=== PATIENT | female | born 1930 | race Caucasian/White ===

== ENCOUNTER 2016-11-01 13:00 | Emergency (ER) ==
[2016-11-01 13:07] VITALS: BP 140/77; TEMP 99.2
[2016-11-01] MEDS ORDERED: STADOL IM STA (13:27)
[2016-11-01 13:40] LABS: BASOPHILS # (AUTO) 0.1 K/uL (0-0.2); BASOPHILS % (AUTO) 0.8 % (0.0-3.0); EOSINOPHILS # (AUTO) 0.4 K/ul (0.0-0.7); EOSINOPHILS % (AUTO) 4.4 % (0.0-7.0); HEMATOCRIT 33.3 % (37.0-47.0); HEMOGLOBIN 11.2 g/dl (12.0-16.0); IMMATURE GRANULOCYTE % (AUTO) 0.7 % (0.0-5.0); LYMPHOCYTES % (AUTO) 36.2 (10.0-50.0); MEAN CORPUSCULAR HEMOGLOBIN 29.4 pg (27.0-31.0); MEAN CORPUSCULAR HGB CONC 33.6 (31.8-35.4); MEAN CORPUSCULAR VOLUME 87.4 fl (81.0-99.0); MONOCYTES # (AUTO) 0.6 K/uL (0.4-2.0); MONOCYTES % (AUTO) 7.5 (0-10); NEUTROPHILS # (AUTO) 4.2 K/ul (2.0-6.9); NEUTROPHILS % (AUTO) 50.4; PLATELET COUNT 319 10^3/uL (140-440); RED BLOOD COUNT 3.81 10^6/ul (4.20-5.40); WHITE BLOOD COUNT 8.35 K/ul (4.6-10.2)
--- NOTE | 2016-11-01 14:00 | ED.PDOC ---
General ED Provider: Dr. MARIE TEIXEIRA Chief Complaint: Back Pain Stated Complaint: back pain, weakness Time Seen by Physician: 13:00 (notrauma seen with staff ) Mode of Arrival: Wheelchair Information Source: Patient Exam Limitations: No limitations Primary Care Provider: KYLER DAVIS Nursing and Triage Documentation Reviewed and Agree: Yes Musculoskeletal Complaint Exam - Back Pain Complaint/Exam Mechanism of Injury: Reports: No known trauma Onset/Duration: chronic with new falre up Symptoms Are: Still present Timing: Constant Episodes Lasting: Hours Initial Severity: Moderate Current Severity: Moderate Location: Reports: Discrete Character: Reports: Aching, Throbbing, Spasmodic, Stiffness Aggravating: Reports: Movements, Lifting, Bending, Walking Alleviating: Reports: Rest, Position Associated Signs and Symptoms: Denies: Swelling, Redness, Bruising, Fever, Weakness, Numbness, Tingling, Abdominal pain, Flank pain, Bladder incontinence, Bowel incontinence, Weight loss, Pain with weight bearing Related History: Reports: Similar episode TAD Risk Factors: Reports: Hypertension. Denies: Conn. Tissue Disorder AAA Risk Factors: Reports: Hypertension, Atherosclerosis Cauda Equina Risk Factors: Reports: None Epidural Abcess Risk Factors: Reports: None Related Surgical History: Reports: None Focal Tenderness: No Paraspinal Muscle Tenderness: No Paraspinal Muscle Spasm: Yes Scoliosis: No Lordosis: No Kyphosis: No SLR Test: Right Negative, Left Negative Hip Motion Testing Pain: Right Negative, Left Negative Focal Weakness: Present: None Focal Sensory Loss: Present: None Gait: Present: Normal Differential Diagnoses: Strain, Sprain Review of Systems - Review Of Systems Constitutional: Reports: No symptoms Eyes: Reports: No symptoms Ears, Nose, Mouth, Throat: Reports: No symptoms Respiratory: Reports: No symptoms Cardiac: Reports: No symptoms GI: Reports: No symptoms : Reports: No symptoms Musculoskeletal: Reports: Back pain Skin: Reports: No symptoms Neurological: Reports: No symptoms Endocrine: Reports: No symptoms Hematologic/Lymphatic: Reports: No symptoms All Other Systems: Reviewed and Negative Past Medical History - Past Medical History Previously Healthy: Yes Endocrine: Reports: None Cardiovascular: Reports: Hypertension Respiratory: Reports: None Hematological: Reports: None Gastrointestinal: Reports: None Genitourinary: Reports: None Neuro/Psych: Reports: None Musculoskeletal: Reports: None Cancer: Reports: None Last Menstrual Period: n/a - Surgical History General Surgical History: Reports: None - Family History Family History: Reports: None - Social History Smoking Status: Never smoker Hx Substance Use: No Alcohol Screening: None Physical Exam - Physical Exam Appearance: Well-appearing, No pain distress, Well-nourished Eyes: GUILLAUME, EOMI, Conjunctiva clear ENT: Ears normal, Nose normal, Oropharynx normal Respiratory: Airway patent, Breath sounds clear, Breath sounds equal, Respirations nonlabored Cardiovascular: RRR, Pulses normal, No rub, No murmur GI/: Soft, Nontender, No masses, Bowel sounds normal, No Organomegaly Musculoskeletal: Normal strength, ROM intact, No edema, No calf tenderness Skin: Warm, Dry, Normal color Neurological: Sensation intact, Motor intact, Reflexes intact, Cranial nerves intact, Alert, Oriented Psychiatric: Affect appropriate, Mood appropriate Critical Care Note - Critical Care Note Total Time (mins): 0 Course - Course Hematology/Chemistry: 11/01/16 13:30 Orders, Labs, Meds: Lab Review 11/01/16 13:30 WBC 8.35 RBC 3.81 L Hgb 11.2 L Hct 33.3 L MCV 87.4 MCH 29.4 MCHC 33.6 RDW Coeff of Destiny 13.5 Plt Count 319 Immature Gran % (Auto) 0.7 Neut % (Auto) 50.4 Lymph % (Auto) 36.2 [place] % (Auto) 7.5 Eos % (Auto) 4.4 Baso % (Auto) 0.8 Immature Gran # (Auto) 0.1 Neut # 4.2 Lymph # 3.0 [place] # 0.6 Eos # 0.4 Baso # 0.1 Orders Category Date Time Status CBC W/ AUTO DIFF Stat LAB 11/01/16 13:30 Completed COMPREHENSIVE METABOLIC PANEL Stat LAB 11/01/16 13:30 Received URINALYSIS C & S IF INDICATED Stat LAB 11/01/16 13:27 Uncollected Butorphanol Tartrate [Stadol] MEDS 11/01/16 13:27 Discontinued 2 mg IM ONCE STA CT LUMBAR SPINE W/O CONTRAST Stat RADS 11/01/16 13:27 Taken Medications Discontinued Medications Generic Name Dose Route Start Last Admin Trade Name Freq PRN Reason Stop Dose Admin Butorphanol Tartrate 2 mg 11/01/16 13:27 11/01/16 13:47 Stadol IM 11/01/16 13:28 2 mg ONCE STA Administration Vital Signs: Temp Pulse Resp BP Pulse Ox 11/01/16 13:01 99.2 F 100 H 20 140/77 95 Departure - Departure Time of Disposition: 02:30 Disposition: ADMITTED INPATIENT Discharge Problem: Back pain Qualifiers: Back pain location: low back pain Chronicity: unspecified Instructions: Low Back Strain (ED), Acute Low Back Pain (ED), Chronic Back Pain (ED) Condition: Good Pt referred to PMD for follow-up: Yes (admitt now) Additional Instructions: Please call your Family Physician as soon as possible to schedule a follow-up appointment. Allergies/Adverse Reactions: Allergies codeine Adverse Reaction (Verified 11/01/16 13:07) morphine Adverse Reaction (Verified 11/01/16 13:07) Sulfa (Sulfonamide Antibiotics) Adverse Reaction (Verified 11/01/16 13:07) Home Medications: Ambulatory Orders Montelukast Sodium [Singulair] 10 mg PO BEDTIME 02/08/13 Valsartan/Hydrochlorothiazide [Diovan Hct 320-12.5 mg Tab] 1 tab PO DAILY Amlodipine Besylate [Norvasc] 5 mg PO DAILY 02/21/13 Clopidogrel Bisulfate [Plavix] 75 mg PO DAILY #30 tablet 02/21/13 Escitalopram Oxalate [Lexapro] 10 mg PO BEDTIME #30 tablet 02/21/13 Hydrocodone Bit/Acetaminophen [[place] 10-325] 1 tab PO DAILY PRN 11/01/16 Pantoprazole Sodium [Protonix] 40 mg PO DAILY 11/01/16 Disposition Discussed With: Patient, Family
[2016-11-01 14:01] LABS: ALBUMIN 3.7 g/dL (3.4-5.0); ALBUMIN/GLOBULIN RATIO 0.93; ANION GAP 16.9; BILIRUBIN,TOTAL 0.24 mg/dL (0.00-1.20); BUN/CREATININE RATIO 17.04; CALCIUM 9.8 mg/dL (8.2-10.2); CREATININE 1.76 mg/dL (0.60-1.30); POTASSIUM 3.9 mmol/L (3.5-5.10); TOTAL PROTEIN 7.7 g/dL (5.8-8.1)
--- NOTE | 2016-11-01 14:09 | CT ---
5. EXAM: CT lumbar spine without contrast HISTORY: Low back pain, chronic pain COMPARISON: None TECHNIQUE: CT lumbar spine performed without intravenous contrast. Coronal and sagittal reformatte d images obtained. FINDINGS: Mild leftward curvature lower thoracic and lumbar spine. Bones appear demineralized. Bi lateral pars defects L5. 2 mm anterolisthesis L5 on S1. There is a moderate compression fracture of L4 with acute fracture lines visualized and approximately 3 mm retrolisthesis of fracture fragments superior and inferior endplate. Approximately 50% loss of vertebral body height. There is also a mi nimally displaced fracture inferior endplate anterior aspect of L3 without loss of vertebral body h eight. Mild chronic appearing central concavity L5. Sacroiliac joints intact with mild degenerativ e change. Aorta normal caliber. Moderate to extensive obtuse atherosclerosis. No paravertebral so ft tissue abnormality. Mild subsegmental atelectasis lung bases. Left parapelvic renal cysts sugges conner. T12-L1: No central canal or neural foraminal narrowing. L1-L2: No central canal or neural foraminal narrowing. L2-L3: Posterior disc osteophyte complex and facet arthrosis causing mild central canal and mild bi lateral neural foraminal narrowing. L3-L4: Posterior is complex and facet arthrosis causing and mild retrolisthesis fracture fragment c ausing moderate central canal and moderate bilateral neural foramen narrowing. L4-L5: Posterior disc osteophyte complex and facet arthrosis and mild retrolisthesis fracture fragm ent causing moderate central canal and severe bilateral neural foraminal narrowing. L5-S1: Posterior disc osteophyte complex and facet arthrosis causing moderate to severe right and s evere left neural foraminal narrowing. IMPRESSION: 1. Acute appearing moderate compression fracture L4 with 3 mm retrolisthesis as described with appro ximately 50% loss of vertebral body height and mild retrolisthesis of fracture fragments as describe d. 2. Additional fracture inferior endplate L3 as described without loss of vertebral body height. 3. Chronic discogenic degenerative disease and facet arthrosis. Please see segmental analysis, not ing central canal and neural foraminal narrowing. 4. Bilateral pars defects L5. 2 mm anterolisthesis of L5 on S1. 5. Mild chronic appearing concavity L5. 6. Bones appear demineralized. 7. Atherosclerosis
[2016-11-01] MEDS ORDERED: SODIUM CHLORIDE 1,000 ML IV SCH (14:30)
[2016-11-01] MEDS ORDERED: STADOL IVP SCH (17:00)
== END 2016-11-01 15:28 | disposition short-term general hospital (02) ==
LOC: ED 13:00
DX: M54.5 Low back pain (principal); R53.1 Weakness; I10 Essential (primary) hypertension; I70.90 Unspecified atherosclerosis; Z79.899 Other long term (current) drug therapy
CPT/HCPCS: 36415; 80053; 85025; 96372; 99285

== ENCOUNTER 2017-09-04 18:14 | Inpatient (IN) ==
[2017-09-04] MEDS ORDERED: TORADOL IVP PRN (18:36)
[2017-09-04] MEDS ORDERED: NORCO 10-325 PO PRN (20:39)
--- NOTE | 2017-09-04 21:00 | DI ---
EXAM: One-view chest HISTORY: Cough TECHNIQUE: Single frontal view of the chest was obtained. Comparison 02/08/2013. FINDINGS: The heart is normal size. Lungs are clear. The pulmonary vasculature appears normal. Th e osseous structures and mediastinal contours are normal. IMPRESSION: No active cardiopulmonary disease.
--- NOTE | 2017-09-04 21:00 | CT ---
EXAM: CT lumbar spine without intravenous contrast 09/04/2017. Sagittal and coronal reformatted kaitlynn ges obtained HISTORY: Lower back pain COMPARISON: 11/01/2016 FINDINGS: Scoliotic curvature of the lumbar spine appears stable. Compression fracture is present a t the L4 vertebral body. There are retropulsed bony fragments. Loss of vertebral body height at L4 has worsened slightly as compared to 11/01/2016. There is currently up to a maximum of 70% loss verte bral body height. There is approximately 4 mm retropulsion. Anterolisthesis of L5 on S1 appears stable. There are bilateral L5 pars defects which appear chronic . There is a new corner fracture at the anterior and inferior aspect of L3. This can be seen on sagitt al series image 44. The remaining visualized osseous structures appear intact. Multilevel chronic degenerative disc disease. There is suggestion of spinal stenosis at L2-L3, L3-L4 and L4-L5. Multilevel chronic neural foraminal stenosis. IMPRESSION: 1. Compression fracture of L4 has worsened since the prior study. 2. New corner fracture at the anterior inferior aspect of L3. 3. Chronic scoliotic curvature. 4. Multilevel severe degenerative disc disease. Multilevel spinal and neural foraminal stenosis. 5. Anterolisthesis of L5 on S1 secondary to bilateral L5 pars defects.
[2017-09-04] MEDS: LEXAPRO PO SCH (21:12)
[2017-09-04] MEDS: SINGULAIR PO SCH (21:12)
[2017-09-04 23:40] VITALS: BMI 25.7
[2017-09-05] MEDS ORDERED: TYLENOL PO PRN (03:48)
[2017-09-05] MEDS ORDERED: NORCO 7.5-325 PO PRN (08:28)
[2017-09-05] MEDS ORDERED: VALSARTAN PO SCH (09:00)
[2017-09-05] MEDS ORDERED: [UNRECOGNIZED DRUG - OTHER] PO SCH (09:00)
[2017-09-05] MEDS ORDERED: HYDROCHLOROTHIAZIDE PO SCH (09:00)
[2017-09-05] MEDS ORDERED: NON-FORMULARY MEDICATION (Pantoprazole Sodium [Protonix] 40 MG) PO SCH (09:00)
[2017-09-05] MEDS: NORVASC PO SCH (09:55)
[2017-09-05] MEDS: PROTONIX PO SCH (09:55)
[2017-09-05] MEDS: PLAVIX PO SCH (09:55)
[2017-09-05] MEDS: HYDROCHLOROTHIAZIDE PO SCH (09:55)
[2017-09-05] MEDS: DIOVAN PO SCH (09:55)
[2017-09-05] MEDS: SINGULAIR PO SCH (20:32)
[2017-09-05] MEDS: LEXAPRO PO SCH (20:32)
[2017-09-05] MEDS: TORADOL IVP PRN (20:33)
[2017-09-06] MEDS: PROTONIX PO SCH (06:01)
[2017-09-06] MEDS: TORADOL IVP PRN (06:15)
[2017-09-06] MEDS ORDERED: TORADOL IVP PRN (07:58)
[2017-09-06] MEDS: DIOVAN PO SCH (10:59)
[2017-09-06] MEDS: HYDROCHLOROTHIAZIDE PO SCH (10:59)
[2017-09-06] MEDS: NORVASC PO SCH (10:59)
[2017-09-06] MEDS: PLAVIX PO SCH (11:00)
[2017-09-06] MEDS: SINGULAIR PO SCH (21:16)
[2017-09-06] MEDS: LEXAPRO PO SCH (21:16)
[2017-09-07] MEDS: PROTONIX PO SCH (05:41)
[2017-09-07] MEDS: HYDROCHLOROTHIAZIDE PO SCH (08:27)
[2017-09-07] MEDS: DIOVAN PO SCH (08:28)
[2017-09-07] MEDS: NORVASC PO SCH (08:28)
[2017-09-07] MEDS: PLAVIX PO SCH (08:28)
--- NOTE | 2017-09-07 09:06 | PCM.PROG ---
Attending Provider: ATTENDING PROVIDER: Dr. KYLER DAVIS This patient is seen with Maya Garcia, Nurse Practitioner. DATE OF SERVICE: 09/07/17 SUBJECTIVE: This 86 year old WHITE/ F was hospitalized 09/04/17. The patient is lying in bed, alert. Discussed with the patient long-term placement for rehab , patient agreeable upon discharge. She is willing to go along with her . X-rays showed new compression fractures. She has been unable to care for herself and at home requiring assistance of her daughter. She is extremely weak due to back pain and at risk for falls, as is her . REVIEW OF SYSTEMS: CONSTITUTIONAL: Weakness. No night sweats. No malaise, lethargy. No fever or chills. HEENT: Eyes: No visual changes. No eye pain. No eye discharge. ENT: No runny nose. No epistaxis. No sinus pain. No odynophagia. No congestion. RESPIRATORY: No cough, no congestion. No hemoptysis. No shortness of breath. CARDIOVASCULAR: No angina symptoms. No CHF symptoms. No atypical chest pain for CAD. No palpitations. No orthopnea.. GASTROINTESTINAL: No abdominal pain. No nausea or vomiting. No diarrhea or constipation. No hematemesis. No hematochezia. GENITOURINARY: No urgency. No frequency. No dysuria. No hematuria. No obstructive symptoms. No discharge. No pain. No significant abnormal bleeding. MUSCULOSKELETAL: Back pain. NEUROLOGICAL: Awake, alert, oriented to time, place and person. No headache. No neck pain. No syncope. No seizures. No dizziness. PSYCHIATRIC: Not anxious. No depression. No suicidal thoughts. No homicidal thoughts. SKIN: No rash. No lesions. No wounds. ENDOCRINE: No unexplained weight loss. No weight gain. HEMATOLOGIC/LYMPHATIC: No anemia. No purpura. No petechiae. No prolonged or excessive bleeding. No palpable lymph nodes. PHYSICAL EXAMINATION: GENERAL: The patient is awake, alert and oriented, lying in bed in no distress. VITAL SIGNS: Temperature 97.3 F, Pulse 59, Respiratory Rate 20, BP 120/71, Pulse Ox 98% HEENT: Head normocephalic, atraumatic. Eyes: Extraocular muscles are intact. Pupils are equal, round and reactive to light and accommodation. Ears: No lesions. Nose appeared normal. Throat: No exudate or erythema. NECK: Supple. No JVD, no carotid bruit. No lymphadenopathy or thyromegaly. LUNGS: Diminished breath sounds bilaterally. Percussion note normal. Chest symmetrical. HEART: S1, S2, no S3. No murmurs. No cyanosis or clubbing. No ascites. Pulses: Dorsalis pedis and posterior tibial pulses +1 to +2 both sides. ABDOMEN: Soft. Non-tender. Bowel sounds active. No CVA tenderness. No mass felt. EXTREMITIES: No edema. Full range of motion of all extremities, equal. NEUROLOGIC: No focal deficit. Cranial nerves II through XII are grossly intact. No headache, no double vision or headache. SKIN: Not dry. Intact. Turgor-normal. LYMPHATIC: No palpable lymph nodes/no lymphedema. MUSCULOSKELETAL: Normal joints with no swelling. Muscle tone is normal. LAB REVIEW: 09/07/17 04:15 09/07/17 04:15 09/07/17 04:15: Sodium 139, Potassium 4.5, Chloride 104, Carbon Dioxide 26, Anion Gap 13.5, BUN 45 H, Creatinine 1.72 H, Estimated GFR (MDRD) 28.00, BUN/ Creatinine Ratio 26.16, Glucose 113, Calcium 9.3, Total Bilirubin 0.3, AST 14 L , ALT 8 L, Alkaline Phosphatase 44 L, Total Protein 6.5, Albumin 3.1 L, Globulin 3.4, Albumin/Globulin Ratio 0.91 09/07/17 04:15: WBC 6.91, RBC 3.46 L, Hgb 10.2 L, Hct 30.7 L, MCV 88.7, MCH 29.5 , MCHC 33.2, RDW Coeff of Destiny 13.4, Plt Count 212, Immature Gran % (Auto) 0.1, Neut % (Auto) 52.3, Lymph % (Auto) 34.0, [place] % (Auto) 8.2, Eos % (Auto) 4.5, Baso % (Auto) 0.9, Immature Gran # (Auto) 0.0, Neut # (Auto) 3.6, Lymph # (Auto ) 2.4, [place] # (Auto) 0.6, Eos # (Auto) 0.3, Baso # (Auto) 0.1 ASSESSMENT: 1. GENERALIZED WEAKNESS 2. COMPRESSION FRACTURES L3-L4 3. DEGENERATIVE JOINT DISEASE OF THE SPINE 4. CHRONIC KIDNEY DISEASE PLAN: 1. Continue medications. 2. Pain seems to be controlled. 3. Discontinue Toradol to see if we can manage with p.o. medications. Plan and coordination of the patient's care discussed in the presence of Health Program Analyst and nurse. CONDITION: Stable SCRIBED BY: MECHE SWENSON Core Measures Abstractor scribed while in presence of service performed by Dr. Davis/Maya Garcia APRN on 09/07/17 ([id number])
[2017-09-07] MEDS: SINGULAIR PO SCH (20:43)
[2017-09-07] MEDS: LEXAPRO PO SCH (20:44)
[2017-09-08] MEDS: PROTONIX PO SCH (05:47)
[2017-09-08 05:48] VITALS: BP 103/61; TEMP 97.8
[2017-09-08] MEDS: HYDROCHLOROTHIAZIDE PO SCH (08:30)
[2017-09-08] MEDS: NORVASC PO SCH (08:31)
[2017-09-08] MEDS: PLAVIX PO SCH (08:31)
[2017-09-08] MEDS: DIOVAN PO SCH (08:31)
--- NOTE | 2017-09-08 08:52 | PCM.PROG ---
Attending Provider: ATTENDING PROVIDER: Dr. KYLER HAYES This patient is seen with Maya Garcia, Nurse Practitioner. DATE OF SERVICE: 09/08/17 SUBJECTIVE: This 86 year old WHITE/ F was hospitalized 09/04/17. The patient is sitting in chair, alert. Back pain has improved. The patient has declined placement at [facility] for rehab and would like to go home. She has agreed to home health. REVIEW OF SYSTEMS: CONSTITUTIONAL: No night sweats. No fatigue, malaise, lethargy. No fever or chills. HEENT: Eyes: No visual changes. No eye pain. No eye discharge. ENT: No runny nose. No epistaxis. No sinus pain. No odynophagia. No congestion. RESPIRATORY: No cough, no congestion. No hemoptysis. No shortness of breath. CARDIOVASCULAR: No angina symptoms. No CHF symptoms. No atypical chest pain for CAD. No palpitations. No orthopnea.. GASTROINTESTINAL: No abdominal pain. No nausea or vomiting. No diarrhea or constipation. No hematemesis. No hematochezia. GENITOURINARY: No urgency. No frequency. No dysuria. No hematuria. No obstructive symptoms. No discharge. No pain. No significant abnormal bleeding. MUSCULOSKELETAL: Back pain, chronic. NEUROLOGICAL: Awake, alert, oriented to time, place and person. No headache. No neck pain. No syncope. No seizures. No dizziness. PSYCHIATRIC: Not anxious. No depression. No suicidal thoughts. No homicidal thoughts. SKIN: No rash. No lesions. No wounds. ENDOCRINE: No unexplained weight loss. No weight gain. HEMATOLOGIC/LYMPHATIC: No anemia. No purpura. No petechiae. No prolonged or excessive bleeding. No palpable lymph nodes. PHYSICAL EXAMINATION: GENERAL: The patient is awake, alert and oriented, sitting in chair in no distress. VITAL SIGNS: Temperature 97.8 F, Pulse 76, Respiratory Rate 16, BP 103/61, Pulse Ox 97% HEENT: Head normocephalic, atraumatic. Eyes: Extraocular muscles are intact. Pupils are equal, round and reactive to light and accommodation. Ears: No lesions. Nose appeared normal. Throat: No exudate or erythema. NECK: Supple. No JVD, no carotid bruit. No lymphadenopathy or thyromegaly. LUNGS: Diminished breath sounds. Clear to auscultation. Percussion note normal. Chest symmetrical. HEART: S1, S2, no S3. No murmurs. No cyanosis or clubbing. No ascites. Pulses: Dorsalis pedis and posterior tibial pulses +1 to +2 both sides. ABDOMEN: Soft. Non-tender. Bowel sounds active. No CVA tenderness. No mass felt. EXTREMITIES: No edema. Full range of motion of all extremities, equal. NEUROLOGIC: No focal deficit. Cranial nerves II through XII are grossly intact. No headache, no double vision or headache. SKIN: Not dry. Intact. Turgor-normal. LYMPHATIC: No palpable lymph nodes/no lymphedema. MUSCULOSKELETAL: Normal joints with no swelling. Muscle tone is normal. LAB REVIEW: 09/08/17 04:30 09/08/17 04:30 09/08/17 04:30: Sodium 139, Potassium 4.2, Chloride 105, Carbon Dioxide 24, Anion Gap 14.2, BUN 43 H, Creatinine 1.82 H, Estimated GFR (MDRD) 26.00, BUN/ Creatinine Ratio 23.62, Glucose 106, Calcium 9.0, Total Bilirubin 0.2, AST 14 L , ALT 9 L, Alkaline Phosphatase 48 L, Total Protein 6.3, Albumin 2.9 L, Globulin 3.4, Albumin/Globulin Ratio 0.85 09/08/17 04:30: WBC 7.12, RBC 3.36 L, Hgb 9.7 L, Hct 30.1 L, MCV 89.6, MCH 28.9 , MCHC 32.2, RDW Coeff of Destiny 13.4, Plt Count 233, Immature Gran % (Auto) 0.4, Neut % (Auto) 41.5, Lymph % (Auto) 42.1, [place] % (Auto) 9.7, Eos % (Auto) 5.6, Baso % (Auto) 0.7, Immature Gran # (Auto) 0.0, Neut # (Auto) 3.0, Lymph # (Auto ) 3.0, [place] # (Auto) 0.7, Eos # (Auto) 0.4, Baso # (Auto) 0.1 ASSESSMENT: 1. GENERALIZED WEAKNESS 2. COMPRESSION FRACTURES L3-L4 3. DEGENERATIVE JOINT DISEASE OF THE SPINE 4. CHRONIC KIDNEY DISEASE PLAN: 1. Discharge home. 2. The patient is to followup with Dr. Perez. 3. They prefer [facility] for nursing assessment, medication management, PT and OT. [facility]. Plan and coordination of the patient's care discussed in the presence of Wood Planer and nurse. CONDITION: Stable SCRIBED BY: MECHE SWENSON Interactive Designer scribed while in presence of service performed by Dr. Hayes/Maya Garcia APRN on 09/08/17 ([id number])
--- NOTE | 2017-09-08 10:08 | CM.DICTOOL ---
ADMISSION: 09/04/17 18:14 DISCHARGE: 09/08/17 FINAL DIAGNOSIS LOW BACK PAIN GENERALIZED WEAKNESS COMPRESSION FRACTURE L3-L4 DJD CKD HISTORY OF: CVA TIA CAD IRREGULAR HEART BEAT TYPE 2 DIABETES DEPRESSION ANXIETY LAST VITALS Temp Pulse Resp BP Pulse Ox 97.8 F 76 16 103/61 97 09/08/17 05:48 09/08/17 05:48 09/08/17 05:48 09/08/17 05:48 09/08/17 05:48 TAKE THESE MEDICATIONS AT HOME Acetaminophen (Tylenol) 650 mg PO Q4H PRN PRN Reason: Mild Pain Hydrocodone Bitart/Acetaminophen ([place] 7.5-325) 1 tab PO BID PRN PRN Reason: Pain Last Admin: 09/07/17 06:42 Dose: 1 tab Amlodipine Besylate (Norvasc) 5 mg PO DAILY [facility] Last Admin: 09/08/17 08:31 Dose: 5 mg Clopidogrel Bisulfate (Plavix) 75 mg PO DAILY [facility] Last Admin: 09/08/17 08:31 Dose: 75 mg Escitalopram Oxalate (Lexapro) 10 mg PO BEDTIME [facility] Last Admin: 09/07/17 20:44 Dose: 10 mg Hydrochlorothiazide (Hydrochlorothiazide) 12.5 mg PO DAILY [facility] Last Admin: 09/08/17 08:30 Dose: 12.5 mg Montelukast Sodium (Singulair) 10 mg PO BEDTIME [facility] Last Admin: 09/07/17 20:43 Dose: 10 mg Pantoprazole Sodium (Protonix) 40 mg PO QDAC [facility] Last Admin: 09/08/17 05:47 Dose: 40 mg Valsartan (Diovan) 320 mg PO DAILY [facility] Last Admin: 09/08/17 08:31 Dose: 320 mg ALLERGIES codeine Adverse Reaction (Verified 11/01/16 13:07) morphine Adverse Reaction (Verified 11/01/16 13:07) Sulfa (Sulfonamide Antibiotics) Adverse Reaction (Verified 11/01/16 13:07) DISCONTINUED MEDICATIONS NONE NEW PRESCRIPTIONS: NONE SMOKING: N/A DISEASE SPECIFIC EDUCATION: MEDICATIONS ACTIVITY FOLLOW UP HOME HEALTH SERVICES LAB REVIEW: 09/08/17 04:30 09/08/17 04:30 09/08/17 04:30: Sodium 139, Potassium 4.2, Chloride 105, Carbon Dioxide 24, Anion Gap 14.2, BUN 43 H, Creatinine 1.82 H, Estimated GFR (MDRD) 26.00, BUN/ Creatinine Ratio 23.62, Glucose 106, Calcium 9.0, Total Bilirubin 0.2, AST 14 L , ALT 9 L, Alkaline Phosphatase 48 L, Total Protein 6.3, Albumin 2.9 L, Globulin 3.4, Albumin/Globulin Ratio 0.85 09/08/17 04:30: WBC 7.12, RBC 3.36 L, Hgb 9.7 L, Hct 30.1 L, MCV 89.6, MCH 28.9 , MCHC 32.2, RDW Coeff of Destiny 13.4, Plt Count 233, Immature Gran % (Auto) 0.4, Neut % (Auto) 41.5, Lymph % (Auto) 42.1, [place] % (Auto) 9.7, Eos % (Auto) 5.6, Baso % (Auto) 0.7, Immature Gran # (Auto) 0.0, Neut # (Auto) 3.0, Lymph # (Auto ) 3.0, [place] # (Auto) 0.7, Eos # (Auto) 0.4, Baso # (Auto) 0.1 PLAN: DISCHARGE TO HOME TODAY. 09/08/17. CONTINUE HOME MEDICATIONS PER NURSING SHEET. THERE WERE NO CHANGES. NO NEW MEDICATIONS. DIET TOLERATED. ACTIVITY GRADUALLY RESUME ACTIVITY. [facility] FOR NURSING, PT AND OT. A REFERRAL TO DR. JARVIS HAS BEEN MADE. THEY WILL CALL YOU WITH AN APPOINTMENT. IF YOU NEED TO CALL THEM, THE NUMBER IS . THEIR ADDRESS IS [address] [place] [address]. YOU HAVE A FOLLOW UP APPOINTMENT WITH DR. DAVIS ON ThursdayAugust AT [phone]. IF UNABLE TO KEEP APPOINTMENT, PLEASE CALL TO RESCHEDULE. [phone]. PATIENT IS A DNR. SITTING UP IN CHAIR. ALERT AND ORIENTED X 4. Daya MONDRAGON APRN INTO SEE PATIENT. PATIENT STATES FEELING BETTER AND WANTS TO GO HOME TODAY. Daya MONDRAGON APRN DISCUSSED PLAN OF CARE INCLUDING DISCHARGE, HOME HEALTH SERVICES AND REFERRAL TO DR. JARVIS AT [facility]. PATIENT VERBALIZES UNDERSTANDING AND AGREEMENT. APPETITE IS GOOD. VITAL SIGNS ARE STABLE. HAS BEEN AFEBRILE. POX 97% ON ROOM AIR. HEART TONES ARE REGULAR. NO C/O PAIN OR DISCOMFORT. LUNGS CLEAR. NO COUGH OR DYSPNEA NOTED. ABDOMEN IS SOFT, NON-TENDER WITH BOWEL SOUNDS POSITIVE IN ALL 4 QUADS. LAST BM . PEDAL PULSES POSITIVE WITHOUT EDEMA. HAS SCATTERED BRUISING TO BILATERAL ARMS. HAS SL IN LEFT HAND SITE IS CLEAR. RATED FALL RISK BUT SIGNED RELEASE. HAS BEEN UP IN ROOM PER SELF. AMBULATES SHORT DISTANCES IN ROOM.IS WEAK AND HOLDS ONTO FURNITURE WHEN UP. FELL YESTERDAY WHEN GOING TO SIT IN WHEELCHAIR. SHE DID NOT LOCK WHEELCHAIR AND IT ROLLED OUT FROM UNDER HER. GOES TO SPOUSE'S ROOM PER WHEELCHAIR. HAS C/O PAIN TO BACK AND RECEIVED [facility] FOR PAIN. DR. KYLER DAVIS MD Daya MONDRAGON APRN
--- NOTE | 2017-09-09 13:16 | PN ---
DATE OF SERVICE: 09/05/17 SUBJECTIVE: The patient was hospitalized with severe back pain and unable to walk. The patient says that she is feeling a lot better. She is up and about in the room. Lower back pain is better, muscle spasm is better. REVIEW OF SYSTEMS: CONSTITUTIONAL: No night sweats. No fatigue, malaise, lethargy. No fever or chills. HEENT: Eyes: No visual changes. No eye pain. No eye discharge. ENT: No runny nose. No epistaxis. No sinus pain. No sore throat. No odynophagia. No congestion. RESPIRATORY: No cough, no congestion. No hemoptysis. No shortness of breath. CARDIOVASCULAR: No angina symptoms. No CHF symptoms. No atypical chest pain for CAD. No palpitations. No orthopnea. GASTROINTESTINAL: No abdominal pain. No nausea or vomiting. No diarrhea or constipation. No hematemesis. No hematochezia. GENITOURINARY: No urgency. No frequency. No dysuria. No hematuria. No obstructive symptoms. No discharge. No pain. No significant abnormal bleeding. MUSCULOSKELETAL: No musculoskeletal pain; no joint swelling. Lower back pain and weakness. NEUROLOGICAL: No headache. No neck pain. No syncope. No seizures. No dizziness. PSYCHIATRIC: Not anxious. No depression. No suicidal thoughts. No homicidal thoughts. SKIN: No rash. No lesions. No wounds. ENDOCRINE: No unexplained weight loss. No weight gain. HEMATOLOGIC/LYMPHATIC: No anemia. No purpura. No petechiae. No prolonged or excessive bleeding. No palpable lymph nodes. PHYSICAL EXAMINATION: GENERAL: The patient is oriented to time, place and person. HEENT: Head normocephalic, atraumatic. Eyes: Extraocular muscles are intact. Pupils are equal, round and reactive to light and accommodation. Ears: No lesions. Nose appeared normal. Throat: No exudate or erythema. NECK: Supple. No JVD, no carotid bruit. No lymphadenopathy or thyromegaly. LUNGS: Clear to auscultation. Percussion note normal. Chest symmetrical. HEART: S1, S2, no S3. No murmurs. No cyanosis or clubbing. No ascites. Pulses: Dorsalis pedis and posterior tibial pulses +1 to +2 both sides. ABDOMEN: Soft. Nontender. Bowel sounds active. No CVA tenderness. No mass felt. EXTREMITIES: No edema. Full range of motion of all extremities, equal. NEUROLOGIC: No focal deficit. Cranial nerves II through XII are grossly intact. No headache, no double vision or headache. SKIN: Not dry. Intact. Turgor - normal. LYMPHATIC: No palpable lymph nodes/no lymphedema. MUSCULOSKELETAL: Normal joints with no swelling. Muscle tone is normal. ASSESSMENT: 1. Sciatica with DJD of the spine 2. Other problems are stable PLAN: 1. Continue Toradol and Muscle relaxant CONDITION: TIME SPENT: More than 30 minutes. Plan and coordination of the patient's care discussed in the presence of nurse. VLAD
--- NOTE | 2017-09-09 13:26 | PN ---
DATE OF SERVICE: 09/06/17 SUBJECTIVE: The patient's back pain is a lot better. She is up and about. No symptoms of CHF or coronary insufficiency. She is worried about her who is in the hospital too. She is willing to go to the custodial to see how things work up because she is not able to take care of her . The family is helping but not enough. Both and , the patient and patient's , are sick and failing in the health. The patient is up and about in the room walking around. REVIEW OF SYSTEMS: CONSTITUTIONAL: No night sweats. No fatigue, malaise, lethargy. No fever or chills. HEENT: Eyes: No visual changes. No eye pain. No eye discharge. ENT: No runny nose. No epistaxis. No sinus pain. No sore throat. No odynophagia. No congestion. RESPIRATORY: No cough, no congestion. No hemoptysis. No shortness of breath. CARDIOVASCULAR: No angina symptoms. No CHF symptoms. No atypical chest pain for CAD. No palpitations. No orthopnea. GASTROINTESTINAL: No abdominal pain. No nausea or vomiting. No diarrhea or constipation. No hematemesis. No hematochezia. GENITOURINARY: No urgency. No frequency. No dysuria. No hematuria. No obstructive symptoms. No discharge. No pain. No significant abnormal bleeding. MUSCULOSKELETAL: No musculoskeletal pain; no joint swelling. NEUROLOGICAL: No headache. No neck pain. No syncope. No seizures. No dizziness. PSYCHIATRIC: Not anxious. No depression. No suicidal thoughts. No homicidal thoughts. SKIN: No rash. No lesions. No wounds. ENDOCRINE: No unexplained weight loss. No weight gain. HEMATOLOGIC/LYMPHATIC: No anemia. No purpura. No petechiae. No prolonged or excessive bleeding. No palpable lymph nodes. PHYSICAL EXAMINATION: HEENT: Head normocephalic, atraumatic. Eyes: Extraocular muscles are intact. Pupils are equal, round and reactive to light and accommodation. Ears: No lesions. Nose appeared normal. Throat: No exudate or erythema. NECK: Supple. No JVD, no carotid bruit. No lymphadenopathy or thyromegaly. LUNGS: Decreased breath sounds but clear to auscultation. Percussion note normal. Chest symmetrical. HEART: S1, S2, no S3. No murmurs. No cyanosis or clubbing. No ascites. Pulses: Dorsalis pedis and posterior tibial pulses +1 to +2 both sides. ABDOMEN: Soft. Nontender. Bowel sounds active. No CVA tenderness. No mass felt. EXTREMITIES: No edema. Full range of motion of all extremities, equal. NEUROLOGIC: No focal deficit. Cranial nerves II through XII are grossly intact. No headache, no double vision or headache. SKIN: Not dry. Intact. Turgor - normal. LYMPHATIC: No palpable lymph nodes/no lymphedema. MUSCULOSKELETAL: Normal joints with no swelling. Muscle tone is normal. ASSESSMENT: 1. Sciatica under control PLAN: 1. Continue Toradol half dose because of kidney function 2. Continue all the medications 3. Encouraged the patient to eat CONDITION: Stable. TIME SPENT: More than 30 minutes. Plan and coordination of the patient's care discussed in the presence of nurse. VLAD
--- NOTE | 2017-09-10 09:12 | PN ---
DATE OF SERVICE: 09/07/17 SUBJECTIVE: The patient was seen and examined with the nurse practitioner. The patient is wobbly but able to walk some by herself with unsteady gait in the room. The patient has back pain as usual, much better after Toradol and medications, not taking care of her . The patient is supposed to see Dr. Perez for pain management and possibly injections in the back. The patient says that her daughter tries to run her life but she is the boss. The patient is oriented to time, place and person, intelligent, does not want to go to the group home. TIME SPENT: More than 30 minutes. Plan and coordination of the patient's care discussed in the presence of nurse. VLAD
--- NOTE | 2017-09-10 09:32 | PN ---
CODING FOR BILLING 09/04/17 LEVEL 5 09/05/17 INTERMEDIATE 09/06/17 INTERMEDIATE 09/07/17 INTERMEDIATE 09/08/17 DISCHARGE MTDD
--- NOTE | 2017-09-10 13:03 | DS ---
DATE OF SERVICE: 09/08/17 FINAL DIAGNOSIS: 1. Low back pain 2. Generalized weakness 3. Compression fracture L3-L4 4. DJD spine 5. CKD 6. CVA 7. TIA 8. CAD 9. Irregular heart beat 10.Type 2 diabetes 11.Depression 12.Anxiety LAST VITALS: Temperature 97.8, pulse 76, respiratory rate 16, blood pressure 103/61 and pulse ox 97%. DISCHARGE INSTRUCTIONS: Discharge to home today. Continue home medications per nursing sheet. There were no changes. No new medications. [facility] for nursing, PT/OT. A referral to Dr. Perez has been made. They will call with an appointment. Followup appointment with Dr. Hayes on September 17 at 11: 15. The patient is a DNR. MEDICATIONS AT DISCHARGE: Tylenol 650mg PO Q 4 hours PRN [place] 7.5-325mg PO three times a day PRN Norvasc 5mg Po daily Plavix 75mg PO daily Lexapro 10mg PO bedtime Hydrochlorothiazide 12.5mg PO daily Singulair 10mg PO bedtime Protonix 40mg PO QDAC Diovan 320mg PO daily ALLERGIES: Codeine Morphine Sulfa NEW PRESCRIPTIONS: None DIET INSTRUCTIONS: As tolerated ACTIVITY: Gradually resume activity SMOKING: N/A DISEASE SPECIFIC EDUCATION: Medications Activity Followup Home Health Services HOSPITAL COURSE: This is an 86 year old white female who has been living at home with her who has been hospitalized several times over the past few weeks with a new onset right left DVT and CHF. She has a history of chronic back pain and CVA. Over the course of past several weeks caring for her she has become extremely weak. Her back pain has become intractable. She presented to our office with generalized worsening weakness and intractable back pain. She was admitted for pain control, IV fluids. She does have a history of chronic kidney disease. She was started on normal saline at 75cc an hour. She takes [place] 7.5 twice a day and also started her Toradol 30mg IV Q 8 hours. X-ray and CT of the back showed compression fractures of L3 and L4 which were both worsening and a partial fracture down in the sacrum. She has agreed during her hospital stay to go and see Dr. Perez and her information has been faxed for a referral and they will call her with an appointment. Over the course of several days her pain has improved, she has been eating well for about the past 48 hours. Her kidney function is slightly abnormal which is baseline for her. She has been eating well. Her has also been in the hospital during this time do to worsening leg edema, CHF, shortness of breath and weakness. This has allowed her some time to rest as well. yesterday she finally got in the chair. She has been alert and oriented. They have decline, both her and her , prison placement for rehab but they have agreed to home health with [facility] and for PT/OT and nursing services. She will be discharged home in stable condition. She is going to continue the [place] twice a day PRN for pain. Fall precautions have been discussed as she did slip in the wheel chair. When she was admitted she was unable to walk and could ambulate only by wheelchair and now she is able to walk with the use of a cane or walker. We will followup with her in the office. TIME SPENT: More than 60 minutes. VLAD
--- NOTE | 2017-09-18 15:34 | HP ---
DATE OF SERVICE: 09/04/17 REASON FOR HOSPITALIZATION/HISTORY OF PRESENT ILLNESS: Severe lower back pain more than 3 weeks with weakness. has been sick- unable to walk- she is housekeeper caregiver. Pain level 2 to 8 on scale of 1-10. PAST MEDICAL HISTORY: DJD spine Anemia Hypertension Dyslipidemia Left side CVA B12 deficiency GERD Depression History of L4 compression fracture. PAST SURGICAL HISTORY: Hysterectomy Bladder Cyst under arm REVIEW OF SYSTEMS: CONSTITUTIONAL: No fever, Fatigue. HEENT: No sinus drainage, no sore throat. RESPIRATORY: No cough, no congestion. CARDIOVASCULAR: No atypical chest pain for coronary artery disease. No angina , CHF symptoms, palpitations or shortness of breath. GASTROINTESTINAL: No melena or abdominal pain. No GERD. GENITOURINARY: No hematuria, no prostatism, no polyuria. AIRPORT SCREENER: No blackout, Dizziness, no headache, no double vision. MUSCULOSKELETAL: Osteoarthritis pain, no joint swelling. ENDOCRINE: No weight loss, no weight gain. SKIN: Dry, no rash. PSYCHIATRIC: Anxious, no depression, no suicidal thoughts, no homicidal thoughts. SOCIAL HISTORY: Marital Status: Lives with the . Alcohol Usage: No. Tobacco Usage: No. FAMILY HISTORY: Father Mother Brother 4 Sisters 5 MEDICATIONS: Diovan 320-12.5 PO daily Singulair 10mg PO bedtime Plavix 75mg PO daily Lexapro 10mg PO bedtime Norvasc 5mg PO daily Protonix 40mg PO daily [place] 7.5-325 PO twice a day PRN ALLERGIES: Crestor Zocor Sulfa Lipitor Codeine Iron Morphine Pravachol PHYSICAL EXAMINATION: GENERAL APPEARANCE: Oriented times three. HEENT: Normal. Kyphosis. NECK: No JVP, no bruits. RESPIRATORY: Decreased breath sounds. CARDIOVASCULAR: S1, S2, no S3, no murmurs. No cyanosis, clubbing. No ascites. GI/ABDOMEN: No tenderness. Bowel sounds are active. EXTREMITIES: edema, pulses +1, equal. AIRPORT SCREENER: Deep tendon reflexes, sensory, motor and gait all normal. ASSESSMENT: 1. Severe DJD spine/sciatica 2. Osteoarthritis 3. Chronic kidney disease stage 3 4. History of L4 compression fracture 5. Severe DJD spine 6. Anemia 7. Hypertension 8. Dyslipidemia 9. Left side CVA 10.B12 deficiency 11.GERD 12.Depression PLAN: 1. Admit regular 2. EKG and x-ray chest today 3. CT Lumbar spine 4. CBC, CMP, TSH today 5. Telemetry x2 4 hours 6. CBC and CMP every other day 7. Toradol 20mg IV now and Q 8 hours for pain PRN 8. Continue all home medications 9. Discontinue Crestor 10.CK Level today TIME SPENT: More than 70 minutes. MTDD
== END 2017-09-08 13:13 | disposition home or self-care (01) | DRG 551 ==
LOC: MEDSURG A 18:14
PROVIDERS: ADMIT Internal Medicine; ATTEND Internal Medicine
DX: M47.9 Spondylosis, unspecified (principal); I63.9 Cerebral infarction, unspecified; G45.9 Transient cerebral ischemic attack, unspecified; M54.40 Lumbago with sciatica, unspecified side; M48.56XS Collapsed vertebra, not elsewhere classified, lumbar region, sequela of fracture; R53.1 Weakness; I25.10 Atherosclerotic heart disease of native coronary artery without angina pectoris; I49.9 Cardiac arrhythmia, unspecified; E11.9 Type 2 diabetes mellitus without complications; F41.8 Other specified anxiety disorders; M19.90 Unspecified osteoarthritis, unspecified site; N18.3 Chronic kidney disease, stage 3 (moderate); E53.8 Deficiency of other specified B group vitamins; K21.9 Gastro-esophageal reflux disease without esophagitis; E78.5 Hyperlipidemia, unspecified; D64.9 Anemia, unspecified; I10 Essential (primary) hypertension
CPT/HCPCS: 36415; 80053; 82550; 84439; 84443; 85025; 93005; 93010

== ENCOUNTER 2018-11-24 11:05 | Inpatient (IN) ==
[2018-11-24] MEDS ORDERED: DECADRON 4 MG/ML SDV IM STA (11:52)
[2018-11-24] MEDS ORDERED: NITROSTAT SL PRN (11:56)
[2018-11-24] MEDS ORDERED: VISTARIL INJ IM PRN (11:56)
[2018-11-24] MEDS ORDERED: ATROPINE SULFATE PFS IVP PRN (11:56)
[2018-11-24] MEDS ORDERED: TYLENOL PO PRN (11:56)
[2018-11-24 12:02] VITALS: BMI 25.9
[2018-11-24] MEDS ORDERED: TORADOL IVP STA (12:02)
[2018-11-24] MEDS: DEXTROSE 5%-1/2NS IV SOLUTION 1,000 ML IV SCH (12:30)
--- NOTE | 2018-11-24 13:53 | DI ---
EXAM: Single view of the chest. History: Short of breath Comparison: Chest radiograph 09/04/2017 Findings: Heart is mildly enlarged. No focal consolidation. No appreciable pleural fluid and no pn eumothorax. No acute osseous abnormalities. Impression: Mild cardiomegaly without acute disease in the chest
[2018-11-24] MEDS ORDERED: NORCO 7.5-325 PO PRN (14:52)
[2018-11-24] MEDS: ZANTAC PO SCH (15:29)
[2018-11-24] MEDS ORDERED: ROCEPHIN 1 GM/50 ML D5W 1 GM in PREMIX 50 ML D5W 1 BAG IV STA (17:10)
[2018-11-24] MEDS ORDERED: ROCEPHIN 1 GM/50 ML D5W 50 ML IV ONE (17:54)
[2018-11-24] MEDS: LEXAPRO PO SCH (20:31)
[2018-11-24] MEDS: COZAAR PO SCH (20:31)
[2018-11-24] MEDS: NORVASC PO SCH (20:32)
[2018-11-24] MEDS: SINGULAIR PO SCH (20:32)
[2018-11-24] MEDS: PROTONIX PO SCH (20:32)
[2018-11-24] MEDS: PLAVIX PO SCH (20:32)
[2018-11-24] MEDS: HYDROCHLOROTHIAZIDE PO SCH (20:32)
[2018-11-24] MEDS ORDERED: NON-FORMULARY MEDICATION (Losartan/Hydrochlorothiazide [Losartan-Hctz 100-12.5 Mg Tab] 1 E PO SCH (21:00)
[2018-11-24] MEDS ORDERED: NON-FORMULARY MEDICATION (Pantoprazole Sodium [Protonix] 40 MG) PO SCH (21:00)
[2018-11-25] MEDS: DEXTROSE 5%-1/2NS IV SOLUTION 1,000 ML IV SCH ×2 (01:31→14:19)
[2018-11-25] MEDS: TORADOL IVP SCH (08:53)
[2018-11-25] MEDS: ASPIRIN EC PO SCH (08:54)
[2018-11-25] MEDS: ROCEPHIN 1 GM/50 ML D5W 1 GM in PREMIX 50 ML D5W 1 BAG IV SCH (08:55)
[2018-11-25] MEDS ORDERED: DECADRON 4 MG/ML SDV IM SCH (09:00)
--- NOTE | 2018-11-25 10:30 | PCM.PROG ---
Attending Provider: ATTENDING PROVIDER: Dr. KYLER DAVIS This patient is seen with Maya Garcia, Nurse Practitioner. DATE OF SERVICE: 11/25/18 SUBJECTIVE: This 88 year old WHITE/ F was hospitalized 11/24/18. The patient is resting comfortably. She is feeling some better. No fever through the night. U/ A showed 4+ bacteria. Kidney function has slightly improved. REVIEW OF SYSTEMS: CONSTITUTIONAL: No night sweats. No fatigue, malaise, lethargy. No fever or chills. Weakness. HEENT: Eyes: No visual changes. No eye pain. No eye discharge. ENT: No runny nose. No epistaxis. No sinus pain. No odynophagia. No congestion. RESPIRATORY: No cough, no congestion. No hemoptysis. No shortness of breath. CARDIOVASCULAR: No angina symptoms. No CHF symptoms. No atypical chest pain for CAD. No palpitations. No orthopnea.. GASTROINTESTINAL: No abdominal pain. No nausea or vomiting. No diarrhea or constipation. No hematemesis. No hematochezia. GENITOURINARY: No urgency. No frequency. No dysuria. No hematuria. No obstructive symptoms. No discharge. No pain. No significant abnormal bleeding. MUSCULOSKELETAL: No musculoskeletal pain; no joint swelling. NEUROLOGICAL: Awake, alert, oriented to time, place and person. No headache. No neck pain. No syncope. No seizures. No dizziness. PSYCHIATRIC: Not anxious. No depression. No suicidal thoughts. No homicidal thoughts. SKIN: No rash. No lesions. No wounds. ENDOCRINE: No unexplained weight loss. No weight gain. HEMATOLOGIC/LYMPHATIC: No anemia. No purpura. No petechiae. No prolonged or excessive bleeding. No palpable lymph nodes. PHYSICAL EXAMINATION: GENERAL: The patient is awake, alert and oriented, lying in bed in no distress. VITAL SIGNS: Temperature 97.7 F, Pulse 59, Respiratory Rate 20, BP 117/71, Pulse Ox 99% HEENT: Head normocephalic, atraumatic. Eyes: Extraocular muscles are intact. Pupils are equal, round and reactive to light and accommodation. Ears: No lesions. Nose appeared normal. Throat: No exudate or erythema. NECK: Supple. No JVD, no carotid bruit. No lymphadenopathy or thyromegaly. LUNGS: Diminished breath sounds. Clear to auscultation. Percussion note normal. Chest symmetrical. HEART: S1, S2, no S3. No murmurs. No cyanosis or clubbing. No ascites. Pulses: Dorsalis pedis and posterior tibial pulses +1 to +2 both sides. ABDOMEN: Soft. Non-tender. Bowel sounds active. No CVA tenderness. No mass felt. EXTREMITIES: No edema. Full range of motion of all extremities, equal. NEUROLOGIC: No focal deficit. Cranial nerves II through XII are grossly intact. No headache, no double vision or headache. SKIN: Not dry. Intact. Turgor-normal. LYMPHATIC: No palpable lymph nodes/no lymphedema. MUSCULOSKELETAL: Normal joints with no swelling. Muscle tone is normal. LAB REVIEW: 11/25/18 05:06 11/25/18 05:06 11/25/18 05:06: Sodium 134.9, Potassium 4.62, Chloride 101.1, Carbon Dioxide 25.0, Anion Gap 13.42, BUN 35.5 H, Creatinine 1.83 H, Estimated GFR (MDRD) 26.00 , BUN/Creatinine Ratio 19.39, Glucose 171.7 H D, Calcium 8.99, Total Bilirubin 0.37, AST 21.9, ALT 12.9, Alkaline Phosphatase 47.6 L, Total Protein 7.21, Albumin 4.15, Globulin 3.06, Albumin/Globulin Ratio 1.35 11/25/18 05:06: WBC 10.53 H, RBC 3.61 L, Hgb 10.8 L, Hct 33.3 L, MCV 92.2, MCH 29.9, MCHC 32.4, RDW Coeff of Destiny 13.3, Plt Count 262, Immature Gran % (Auto) 0.4, Neut % (Auto) 82.4, Lymph % (Auto) 11.2, Shannon % (Auto) 5.8, Eos % (Auto) 0.0, Baso % (Auto) 0.2, Immature Gran # (Auto) 0.0, Neut # (Auto) 8.7 H, Lymph # (Auto) 1.2, Shannon # (Auto) 0.6, Eos # (Auto) 0.0, Baso # (Auto) 0.0 11/24/18 20:10: Total Creatine Kinase 94.8, Troponin I 0.016 11/24/18 15:15: Urine Color Yellow, Urine Clarity Slightly, Urine pH 5.5, Ur Specific [place] 1.015, Urine Protein Negative, Urine Glucose (UA) Negative, Urine Ketones Negative, Urine Blood Negative, Urine Nitrite Positive, Urine Bilirubin Negative, Urine Urobilinogen 0.2, Ur Leukocyte Esterase 1+, Urine Microscopic WBC 50-100, Ur Squamous Epith Cells 2-5, Ur Transition Epith Cell 0- 2, Urine Bacteria 4+, Hyaline Casts 0-2, Urine Mucus 1+ 11/24/18 12:17: ESR 37 H 11/24/18 12:08: Vitamin B12 486 11/24/18 12:08: Thyroxine (T4) 5.0 11/24/18 12:08: Sodium 138.4, Potassium 4.25, Chloride 102.6, Carbon Dioxide 26.9, Anion Gap 13.15, BUN 41.5 H, Creatinine 2.30 H, Estimated GFR (MDRD) 20.00 , BUN/Creatinine Ratio 18.04, Glucose 102.4, Calcium 9.30, Total Bilirubin 0.58 , AST 29.4, ALT 14.0, Alkaline Phosphatase 52.7 L, Total Creatine Kinase 96.1, Troponin I 0.026, Total Protein 7.69, Albumin 4.51, Globulin 3.18, Albumin/ Globulin Ratio 1.41, TSH 3.030 11/24/18 12:08: C-Reactive Prot, Quant 16 H 11/24/18 11:57: WBC 8.83, RBC 3.59 L, Hgb 10.8 L, Hct 33.5 L, MCV 93.3, MCH 30.1 , MCHC 32.2, RDW Coeff of Destiny 13.2, Plt Count 250, Immature Gran % (Auto) 0.2, Neut % (Auto) 70.4, Lymph % (Auto) 19.8, Shannon % (Auto) 6.7, Eos % (Auto) 2.6, Baso % (Auto) 0.3, Immature Gran # (Auto) 0.0, Neut # (Auto) 6.2, Lymph # (Auto ) 1.8, Shannon # (Auto) 0.6, Eos # (Auto) 0.2, Baso # (Auto) 0.0 ASSESSMENT: Please see below. 1. UTI, culture pending 2. Dehydration 3. Generalized weakness. 4. Acute on chronic renal failure 5. Anemia PLAN: 1. Continue IV Rocephin 2. Continue IV fluids Plan and coordination of the patient's care discussed in the presence of Transportation Specialist and nurse. SCRIBED BY: April HINES scribed while in presence of service performed by Dr. Davis/Maya Garcia APRN on 11/25/18 ([id number])
--- NOTE | 2018-11-25 11:40 | RS.OTINEVL ---
Subjective - Patient information Date of Evaluation: 11/25/18 Date of Arrival on Unit: 11/24/18 Admitted From:: Home Diagnosis: M62.81 Muscle weakness PRECAUTIONS: At risk for falls. Usual Living Arrangement: Alone Living Arrangement Comments: Pt lives in a double wide trailer that has a back porch on the units. Pt has a grand daughter living with her. She walks with a quad cane. Home Environment: Mobile Home, Stairs (few), Rail Medical History: Hypertension, CVA/TIA Medical History Comments:: depression, anxiety, CAD, irregular heartbeat, kidney stones, back pain Surgical History: Hysterectomy Medications: see chart Subjective Information/ Patient Comments:: "I am getting better, baby." - Level of function Prior to this admission, the patient could do the following:: Independent Selfcare, Independent ADL's, Independent Ambulation, Perform Manufacturing Clerk/ Cooking, Participated in Social Activities Outside home (attends [employer] every Thursday) Current Equipment Used at Home: quad cane, potty chair, Functional Mobility - Bed Mobility Rolling R/L: Independent Scooting: Independent Supine to Sit: Independent Sit to Supine: Independent - Transfers Sit to Stand: CGA Stand to Sit: CGA Stand Pivot Transfers: CGA - Ambulation Weight Bearing Status: FWB Assistive Device Used: Rolling Walker Assistance needed with Ambulation: CGA - Safety Awareness Safety Awareness: Fair DORI INDEX SCORE: . Additional Treatment Performed - Time with patient Length of Evaluation: 20 Total treatment time: 20 Patient Education Patient Education: Education of diagnosis, Body/Joint mechanics, Home Exercise Program, Home Safety Teaching Recipient: Patient Teaching Methods: Teach Back Method Used, Discussion Assessment Problem List:: Decreased level of function, Requires training/education, Weakness, Pain limits previous level of function, Cognitive status limits abilities Rehab Potential: Good Further Therapy Indicated?: Yes Evaluation Complexity: HISTORY: Medium, EXAM OF BODY SYSTEMS: Medium, CLINICAL DECISION MAKING: Medium Short Term Goals - Goals GOAL 1: Pt will be (S) for ADLs Goal to be met by: 12/02/18 GOAL 2: Pt RUE pain decreases to 0/10. Goal to be met by: 11/30/18 GOAL 3: Pt will increase to Fair functional balance. Goal to be met by: 12/02/18 Prison Goals GOAL 1: Pt will be (Mod-I) with ADLs Goal to be met by: 12/09/18 GOAL 2: Pt will have BUE strength to 4+/5. Goal to be met by: 12/12/18 GOAL 3: Pt will G functional balance. Goal to be met by: 12/12/18 Plan Plan of Care: Therapeutic EX, Neuromuscular Re-Educ, Therapeutic Activity, Self- Care/Home Management Modalities: Hot Pack, Ultrasound, Electrical Stimulation Frequency of Treatment: 1-2 X day, as tolerated Duration of Treatment: 1 Week Anticipated Discharge Destination: Home Treatment Diagnosis (ICD 10 Codes): Muscle weakness M62.81, Right shoulder pain M25.511 Has the Physician been added for Co-signature?: Yes
--- NOTE | 2018-11-25 11:46 | RS.PTINEVL ---
Subjective - Patient information Date of Evaluation: 11/25/18 Date of Arrival on Unit: 11/24/18 Admitted From:: Home Diagnosis: UTI, dehydration Usual Living Arrangement: Alone Home Environment: Mobile Home, Stairs (few), Rail Medical History: Hypertension, CVA/TIA Medical History Comments:: depression, anxiety, CAD, irregular heartbeat, kidney stones, back pain Surgical History: Hysterectomy Medications: see chart Subjective Information/ Patient Comments:: pt states that she is doing a little better this am. 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 Interventions - Objective Patient Orientation: Person, Place, Time Current Interventions: IV's, Telemetry Observation: R foot arch has fallen, pt amb weight bearing on talus, calcaneus is shifted. pt with LLE longer than R. pt states she has never had any custom shoes. Range of Motion - ROM Right Upper Extremity AROM: Slight limitation (decreased R shld ROM due to pain) Left Upper Extremity AROM: WFL's Right Lower Extremity AROM: WFL's Left Lower Extremity AROM: WFL's Muscle Strength - Muscle Strength Right Upper Extremity Strength: Mild Weakness (shld flex 3-/5) Left Upper Extremity Strength: Mild Weakness (grossly 4/5) Right Lower Extremity Strength: Mild Weakness (hip flex 4-/5, knee flex/ext 4/5 , ankle Df/PF 4/5) Left Lower Extremity Strength: Mild Weakness (hip flex 4-/5, knee flex/ext 4/5, ankle Df/PF 4/5) Sensation - Sensation Right Upper Extremity Sensation: Intact/Normal Left Upper Extremity Sensation: Intact/Normal Right Lower Extremity Sensation: Intact/Normal Left Lower Extremity Sensation: Intact/Normal Palpation Palpation Findings: Tenderness Comments:: R scapula Balance - Sitting Balance and Reactions Static Sitting Balance: Good Dynamic Sitting Balance: Fair - Standing Balance and Reactions Static Standing Balance: Fair Dynamic Standing Balance: Poor Standing Equilibrium Reactions: Delayed Left, Delayed Right Standing Protective Reactions: Delayed Left, Delayed Right Functional Mobility - Bed Mobility Supine to Sit: Supervision - Transfers Sit to Stand: CGA Stand to Sit: CGA - Safety Awareness Safety Awareness: Fair DORI INDEX SCORE: n/a Ambulation - Ambulation Assistive Device Used: Rolling Walker Orthotic/Prosthetic Device: No Distance: 120ft Assistance needed with Ambulation: Independent, CGA Gait Deviations: Forward posture, Short stride, Deviates from path Ambulation Comments: pt amb with decreased step length, flexed posture, as well as amb with RLE ext rot. Factors Affecting Ambulation: Decreased Balance, Pain (in R foot), Weakness, Decreased Safety, Limited Endurance Treatment time - Time with patient Length of Evaluation: 22 Total treatment time: 38 Patient Education - Education Patient Education: Activity Modification, Education of Plan of Care Teaching Recipient: Patient Teaching Methods: Discussion Comments: discussion regarding POC as well as safety with transfers and gait. Assessment - Assessment Problem List:: Decreased level of function, Requires training/education, Decreased safety/Risk of falls, Weakness, Pain limits previous level of function Rehab Potential: Good Further Therapy Indicated?: Yes Candidate for Swing Bed for Therapy Services?: Feel pt may not be a candidate for swing bed due to high functional level. Feel pt may benefit from outpatient PT or home health Evaluation Complexity: HISTORY: Medium, EXAM OF BODY SYSTEMS: Medium, CLINICAL PRESENTATION: Medium, CLINICAL DECISION MAKING: Medium Short Term Goals GOAL #1: Transfer sup to/from sit independently Goal to be met by: 11/27/18 GOAL #2: Sit to stand with SBA. Goal to be met by: 11/27/18 GOAL #3: pt amb with rwx 150ft with CGA with no LOB Goal to be met by: 11/27/18 GOAL #4: Improve dyn stand balance fair Goal to be met by: 11/27/18 Half-Way Goals GOAL #1: Transfer sit to/from stand SBA to independently Goal to be met by: 11/29/18 GOAL #2: pt amb functional household distances with SBA with Rwx no LOB Goal to be met by: 11/29/18 GOAL #3: Ascend/descend 3-4 steps with HR CGA Goal to be met by: 11/29/18 Plan Plan of Care: Therapeutic EX, Therapeutic Activity Other:: gait training Frequency of Treatment: 1-2 X day, as tolerated Duration of Treatment: 5 days Anticipated Discharge Destination: Home Treatment Diagnosis (ICD 10 Codes): R 26.2 difficulty walking. R 26.81 balance impaired. z91.81 risk of falls. Has the Physician been added for Co-signature?: Yes
[2018-11-25] MEDS: ZANTAC PO SCH (14:37)
[2018-11-25] MEDS: HYDROCHLOROTHIAZIDE PO SCH (21:58)
[2018-11-25] MEDS: NORVASC PO SCH (22:00)
[2018-11-25] MEDS: LEXAPRO PO SCH (22:00)
[2018-11-25] MEDS: COZAAR PO SCH (22:01)
[2018-11-25] MEDS: SINGULAIR PO SCH (22:01)
[2018-11-25] MEDS: PROTONIX PO SCH (22:01)
[2018-11-25] MEDS: PLAVIX PO SCH (22:01)
[2018-11-26] MEDS: DEXTROSE 5%-1/2NS IV SOLUTION 1,000 ML IV SCH (01:57)
[2018-11-26] MEDS: NORCO 10-325 PO PRN (07:29)
[2018-11-26] MEDS ORDERED: ZANTAC PO PRN (08:32)
[2018-11-26] MEDS: TORADOL IVP SCH (08:45)
[2018-11-26] MEDS: ASPIRIN EC PO SCH (08:45)
[2018-11-26] MEDS: ROCEPHIN 1 GM/50 ML D5W 1 GM in PREMIX 50 ML D5W 1 BAG IV SCH (08:45)
[2018-11-26] MEDS ORDERED: DECADRON 4 MG/ML SDV IM STA (09:24)
--- NOTE | 2018-11-26 09:31 | PCM.PROG ---
Attending Provider: ATTENDING PROVIDER: Dr. KYLER DAVIS This patient is seen with Maya Garcia, Nurse Practitioner. DATE OF SERVICE: 11/26/18 SUBJECTIVE: This 88 year old WHITE/ F was hospitalized 11/24/18. The patient is resting comfortably. Kidney functions are steadily improving. She has been eating well. Still some weakness. REVIEW OF SYSTEMS: CONSTITUTIONAL: No night sweats. No fatigue, malaise, lethargy. No fever or chills. Weakness. HEENT: Eyes: No visual changes. No eye pain. No eye discharge. ENT: No runny nose. No epistaxis. No sinus pain. No odynophagia. No congestion. RESPIRATORY: No cough, no congestion. No hemoptysis. No shortness of breath. CARDIOVASCULAR: No angina symptoms. No CHF symptoms. No atypical chest pain for CAD. No palpitations. No orthopnea.. GASTROINTESTINAL: No abdominal pain. No nausea or vomiting. No diarrhea or constipation. No hematemesis. No hematochezia. GENITOURINARY: No urgency. No frequency. No dysuria. No hematuria. No obstructive symptoms. No discharge. No pain. No significant abnormal bleeding. MUSCULOSKELETAL: No musculoskeletal pain; no joint swelling. NEUROLOGICAL: Awake, alert, oriented to time, place and person. No headache. No neck pain. No syncope. No seizures. No dizziness. PSYCHIATRIC: Not anxious. No depression. No suicidal thoughts. No homicidal thoughts. SKIN: No rash. No lesions. No wounds. ENDOCRINE: No unexplained weight loss. No weight gain. HEMATOLOGIC/LYMPHATIC: No anemia. No purpura. No petechiae. No prolonged or excessive bleeding. No palpable lymph nodes. PHYSICAL EXAMINATION: GENERAL: The patient is awake, alert and oriented, sitting in bed in no distress. VITAL SIGNS: Temperature 97.6 F, Pulse 62, Respiratory Rate 16, BP 137/74, Pulse Ox 99% HEENT: Head normocephalic, atraumatic. Eyes: Extraocular muscles are intact. Pupils are equal, round and reactive to light and accommodation. Ears: No lesions. Nose appeared normal. Throat: No exudate or erythema. NECK: Supple. No JVD, no carotid bruit. No lymphadenopathy or thyromegaly. LUNGS: Diminished breath sounds. Clear to auscultation. Percussion note normal. Chest symmetrical. HEART: S1, S2, no S3. No murmurs. No cyanosis or clubbing. No ascites. Pulses: Dorsalis pedis and posterior tibial pulses +1 to +2 both sides. ABDOMEN: Soft. Non-tender. Bowel sounds active. No CVA tenderness. No mass felt. EXTREMITIES: No edema. Full range of motion of all extremities, equal. NEUROLOGIC: No focal deficit. Cranial nerves II through XII are grossly intact. No headache, no double vision or headache. SKIN: Not dry. Intact. Turgor-normal. LYMPHATIC: No palpable lymph nodes/no lymphedema. MUSCULOSKELETAL: Normal joints with no swelling. Muscle tone is normal. LAB REVIEW: 11/26/18 04:54 11/26/18 04:54 11/26/18 04:54: Sodium 139.4, Potassium 4.12, Chloride 105.8, Carbon Dioxide 24.9, Anion Gap 12.82, BUN 29.7 H, Creatinine 1.39 H, Estimated GFR (MDRD) 36.00 , BUN/Creatinine Ratio 21.36, Glucose 131.7 H, Calcium 9.27, Total Bilirubin 0.33, AST 17.1, ALT 12.5, Alkaline Phosphatase 50.7 L, Total Protein 7.16, Albumin 4.05, Globulin 3.11, Albumin/Globulin Ratio 1.30 11/26/18 04:54: WBC 10.78 H, RBC 3.38 L, Hgb 10.2 L, Hct 30.8 L, MCV 91.1, MCH 30.2, MCHC 33.1, RDW Coeff of Destiny 13.3, Plt Count 256, Immature Gran % (Auto) 0.5, Neut % (Auto) 73.3, Lymph % (Auto) 18.9, [place] % (Auto) 7.0, Eos % (Auto) 0.1, Baso % (Auto) 0.2, Immature Gran # (Auto) 0.1, Neut # (Auto) 7.9 H, Lymph # (Auto) 2.0, [place] # (Auto) 0.8, Eos # (Auto) 0.0, Baso # (Auto) 0.0 ASSESSMENT: Please see below. 1. UTI, Klebsiella 2. Dehydration 3. Generalized weakness. 4. Acute on chronic renal failure 5. Anemia PLAN: 1. Discontinue IV fluids 2. Anticipate possible discharge home tomorrow. Plan and coordination of the patient's care discussed in the presence of Knobber and nurse. SCRIBED BY: Stephon HINESist scribed while in presence of service performed by Dr. Davis/Maya Garcia APRN on 11/26/18 ([id number])
--- NOTE | 2018-11-26 11:32 | HP ---
DATE OF SERVICE: 11/24/18 REASON FOR HOSPITALIZATION/HISTORY OF PRESENT ILLNESS: 88 year old white female was hospitalized with extreme weakness and not able to walk. The patient has been short of breath, having weakness and deteriorating and going down to nothing. Nothing tastes good. She has lost 5 pounds in 4 weeks. No orthopnea or PND. PAST MEDICAL HISTORY: Diabetes Mellitus type 2 5.9 on 09/08 Chronic kidney disease Right shoulder bursitis History fo L4 compression fracture Severe DJD spine/sciatic Anemia Hypertension Dyslipidemia Depression Osteoarthritis GERD DJD back Grieving for , one year . PAST SURGICAL HISTORY: Total abdominal hysterectomy Kidney stones times one REVIEW OF SYSTEMS: CONSTITUTIONAL: No fever, Fatigue. HEENT: No sinus drainage, no sore throat. RESPIRATORY: No cough, no congestion. CARDIOVASCULAR: Atypical chest pain for coronary artery disease. No angina, CHF symptoms, palpitations. Shortness of breath. GASTROINTESTINAL: No melena or abdominal pain. No GERD. GENITOURINARY: No hematuria, no prostatism, no polyuria. JEWEL FLAT SURFACER: No blackout, Dizziness, no headache, no double vision. GAIT: Unsteady. No history of falls. MUSCULOSKELETAL: Osteoarthritis pain, no joint swelling. ENDOCRINE: Weight loss, no weight gain. SKIN: Not dry, no rash. PSYCHIATRIC: Anxious, no depression, no suicidal thoughts, no homicidal thoughts. SOCIAL HISTORY: Marital Status: . Alcohol Usage: No. Tobacco Usage: No. FAMILY HISTORY: Father , CAD Mother , TIA Brothers: 7 all [place] Sisters: 4 all MEDICATIONS: Lexapro 20mg PO daily [place] 10-325mg PO every 12 hourly PRN for pain Losartan HCT 100/12.5 PO bedtime Norvasc 5mg PO daily Singulair 10mg PO daily in evening Dexilant 30mg PO once daily Plavix 75mg PO daily Ranitidine 150mg PO twice daily Voltaran Gel ALLERGIES: Morphine Sulfa PHYSICAL EXAMINATION: V/S: Pulse 72, blood pressure 126/70, oxygen saturation 10%. Height 5'0, BMI 26.3 and weight 134.6. GENERAL APPEARANCE: Oriented times three. HEENT: Pallor NECK: No JVP, no bruits. RESPIRATORY: Decreased breath sounds. CARDIOVASCULAR: S1, S2, no S3, no murmurs. No cyanosis, clubbing. No ascites. GI/ABDOMEN: No tenderness. Bowel sounds are active. EXTREMITIES: edema, pulses +1, equal. JEWEL FLAT SURFACER: Deep tendon reflexes, sensory, motor and gait all normal. RECTAL: Patient refused/PELVIC: Hysterectomy. ASSESSMENT: 1. Anemia 2. Diabetes Mellitus type 2 5.9 on 09/08 3. Chronic kidney disease 4. Right shoulder bursitis 5. History fo L4 compression fracture 6. Severe DJD spine/sciatic 7. Anemia 8. Hypertension 9. Dyslipidemia 10.Depression 11.Osteoarthritis 12.GERD 13. DJD back 14. Grieving for , one year . PLAN: 1. Admit 2. Routine telemetry orders 3. Discontinue Crestor 4. Continue all home medications 5. T4 and TSH and B12 level 6. Echo to evaluate LV function 7. 1000cc D5 1/2 normal saline 12 hourly 8. SED rate/ CRP 9. 1cc Decadron IM today and QAM 10.Toradol 30mg IV now and QAM TIME SPENT: More than 70 minutes. MTDD
[2018-11-26] MEDS: LEXAPRO PO SCH (20:11)
[2018-11-26] MEDS: COZAAR PO SCH (20:11)
[2018-11-26] MEDS: PROTONIX PO SCH (20:11)
[2018-11-26] MEDS: HYDROCHLOROTHIAZIDE PO SCH (20:12)
[2018-11-26] MEDS: NORVASC PO SCH (20:12)
[2018-11-26] MEDS: SINGULAIR PO SCH (20:12)
[2018-11-26] MEDS: PLAVIX PO SCH (20:12)
[2018-11-27] MEDS: NORCO 10-325 PO PRN (04:24)
[2018-11-27] MEDS: ROCEPHIN 1 GM/50 ML D5W 1 GM in PREMIX 50 ML D5W 1 BAG IV SCH (08:47)
[2018-11-27] MEDS: TORADOL IVP SCH (08:54)
[2018-11-27] MEDS: ASPIRIN EC PO SCH (08:56)
[2018-11-27] MEDS ORDERED: LIDOCAINE HCL 1% SDV IM STA (11:59)
[2018-11-27] MEDS: KEFLEX PO SCH ×2 (14:57→20:18)
[2018-11-27] MEDS: LEXAPRO PO SCH (20:18)
[2018-11-27] MEDS: PLAVIX PO SCH (20:19)
[2018-11-27] MEDS: PROTONIX PO SCH (20:19)
[2018-11-27] MEDS: HYDROCHLOROTHIAZIDE PO SCH (20:20)
[2018-11-27] MEDS: COZAAR PO SCH (20:20)
[2018-11-27] MEDS: SINGULAIR PO SCH (20:21)
[2018-11-27] MEDS: NORVASC PO SCH (20:21)
[2018-11-28] MEDS: KEFLEX PO SCH ×3 (04:36→20:28)
[2018-11-28] MEDS: NORCO 10-325 PO PRN ×2 (04:43→20:36)
[2018-11-28] MEDS: ASPIRIN EC PO SCH (08:43)
[2018-11-28] MEDS: TORADOL IM SCH (08:44)
[2018-11-28] MEDS ORDERED: ROCEPHIN 1 GM VIAL IM SCH (09:00)
[2018-11-28] MEDS ORDERED: LIDOCAINE HCL 1% SDV IM SCH (09:00)
[2018-11-28] MEDS: PROTONIX PO SCH (20:27)
[2018-11-28] MEDS: LEXAPRO PO SCH (20:28)
[2018-11-28] MEDS: COZAAR PO SCH (20:28)
[2018-11-28] MEDS: SINGULAIR PO SCH (20:28)
[2018-11-28] MEDS: PLAVIX PO SCH (20:28)
[2018-11-28] MEDS: HYDROCHLOROTHIAZIDE PO SCH (20:29)
[2018-11-28] MEDS: NORVASC PO SCH (20:29)
[2018-11-28 22:31] VITALS: TEMP 98.1
[2018-11-29 04:37] VITALS: BP 141/72
[2018-11-29] MEDS: KEFLEX PO SCH ×2 (04:38→12:10)
[2018-11-29] MEDS: ASPIRIN EC PO SCH (08:34)
[2018-11-29] MEDS: TORADOL IM SCH (08:35)
--- NOTE | 2018-11-29 11:24 | PN ---
DATE OF SERVICE: 11/26/18 SUBJECTIVE: The patient was seen and examined with the nurse practitioner. The patient's condition is improving. Her kidney functions have improved. Hydration status has improved. She is afebrile. She is feeling a lot better. She is being treated for urinary tract infection. TIME SPENT: More than 30 minutes. Plan and coordination of the patient's care discussed in the presence of nurse. VLAD
--- NOTE | 2018-11-29 11:30 | PN ---
DATE OF SERVICE: 11/27/18 SUBJECTIVE: 88-year-old white female hospitalized with anemia, dehydration, extreme weakness. The patient has been treated with IV antibiotics for urinary tract infection. The patient had renal azotemia/renal failure. She has been given IV fluids which is going to be discontinued today. No fluid overload noted. The patient's cardiovascular status is stable. The patient wants to go home. The patient has been up walking around the room. REVIEW OF SYSTEMS: CONSTITUTIONAL: No night sweats. No fatigue, malaise, lethargy. No fever or chills. HEENT: Eyes: No visual changes. No eye pain. No eye discharge. ENT: No runny nose. No epistaxis. No sinus pain. No sore throat. No odynophagia. No congestion. RESPIRATORY: No cough, no congestion. No hemoptysis. No shortness of breath. CARDIOVASCULAR: No angina symptoms. No CHF symptoms. No atypical chest pain for CAD. No palpitations. No PND. No orthopnea. GASTROINTESTINAL: Appetite has improved. No abdominal pain. No nausea or vomiting. No diarrhea or constipation. No hematemesis. No hematochezia. GENITOURINARY: No urgency. No frequency. No dysuria. No hematuria. No obstructive symptoms. No discharge. No pain. No significant abnormal bleeding. MUSCULOSKELETAL: No musculoskeletal pain; no joint swelling. NEUROLOGICAL: No headache. No neck pain. No syncope. No seizures. No dizziness. PSYCHIATRIC: Not anxious. No depression. No suicidal thoughts. No homicidal thoughts. SKIN: No rash. No lesions. No wounds. ENDOCRINE: No unexplained weight loss. No weight gain. HEMATOLOGIC/LYMPHATIC: No anemia. No purpura. No petechiae. No prolonged or excessive bleeding. No palpable lymph nodes. PHYSICAL EXAMINATION: VITAL SIGNS: Temperature 97.7, pulse 57, respiratory rate 14, blood pressure 145 /70, pulse ox 97%. HEENT: Head normocephalic, atraumatic. Eyes: Extraocular muscles are intact. Pupils are equal, round and reactive to light and accommodation. Ears: No lesions. Nose appeared normal. Throat: No exudate or erythema. NECK: Supple. No JVD, no carotid bruit. No lymphadenopathy or thyromegaly. LUNGS: Decreased breath sounds but clear to auscultation. Percussion note normal. Chest symmetrical. HEART: S1, S2, no S3. No murmurs. No cyanosis or clubbing. No ascites. Pulses: Dorsalis pedis and posterior tibial pulses +1 to +2 bilaterally. ABDOMEN: Soft. Nontender. Bowel sounds active. No CVA tenderness. No mass felt. EXTREMITIES: No edema. Full range of motion of all extremities, equal. NEUROLOGIC: No focal deficit. Cranial nerves II through XII are grossly intact. No headache, no double vision or headache. SKIN: Not dry, hydration status seems to have improved. Intact. Turgor - Good. LYMPHATIC: No palpable lymph nodes/no lymphedema. MUSCULOSKELETAL: Normal joints with no swelling. Muscle tone is normal. LABS: Hemoglobin 10.6, hematocrit 32, WBC 8,600, normal differential. Creatinine 1.5, BUN 32, potassium 4.2. ASSESSMENT: 1. URINARY TRACT INFECTION SEEMS TO BE RESOLVING. 2. RENAL AZOTEMIA/RENAL FAILURE SEEMS TO BE IMPROVING. 3. DEHYDRATION SEEMS TO BE IMPROVING. PLAN: 1 Continue antibiotics. 2. Discontinue IV fluids. 3. Up and about. 4. The patient is strongly advised to eat three meals./ 5. The patient is still grieving, the recently. TIME SPENT: More than 30 minutes. Plan and coordination of the patient's care discussed in the presence of nurse. VLAD
--- NOTE | 2018-11-29 11:44 | PN ---
DATE OF SERVICE: 11/28/18 SUBJECTIVE: 88-year-old white female hospitalized with extreme weakness, fatigue. The patient has urinary tract infection which is being treated with Rocephin. The patient had renal failure. Now the creatinine is 1.5, BUN 38, has improved remarkably with estimated GFR 33 cc/min. The patient is feeling better, up and about with help. She wants to go home. The patient has sneezing symptoms consistent with allergic type sinusitis. The patient is going to be given 1 cc Decadron. REVIEW OF SYSTEMS: CONSTITUTIONAL: Mild fatigue with sneezing and sinus allergic type symptoms. No night sweats. No malaise, lethargy. No fever or chills. HEENT: Eyes: No visual changes. No eye pain. No eye discharge. ENT: Sneezing, allergic type rhinitis. No sore throat. No odynophagia. No congestion. RESPIRATORY: No cough, no congestion. No hemoptysis. No shortness of breath. CARDIOVASCULAR: No angina symptoms. No CHF symptoms. No atypical chest pain for CAD. No palpitations. No PND. No orthopnea. GASTROINTESTINAL: No abdominal pain. No nausea or vomiting. No diarrhea or constipation. No hematemesis. No hematochezia. GENITOURINARY: No urgency. No frequency. No dysuria. No hematuria. No obstructive symptoms. No discharge. No pain. No significant abnormal bleeding. MUSCULOSKELETAL: No musculoskeletal pain; no joint swelling. NEUROLOGICAL: No headache. No neck pain. No syncope. No seizures. No dizziness. PSYCHIATRIC: Not anxious. No depression. No suicidal thoughts. No homicidal thoughts. SKIN: No rash. No lesions. No wounds. ENDOCRINE: No unexplained weight loss. No weight gain. HEMATOLOGIC/LYMPHATIC: No anemia. No purpura. No petechiae. No prolonged or excessive bleeding. No palpable lymph nodes. PHYSICAL EXAMINATION: VITAL SIGNS: Temperature 98.4, pulse 65, respiratory rate 14, blood pressure 138, pulse ox 97%. HEENT: Head normocephalic, atraumatic. Eyes: Extraocular muscles are intact. Pupils are equal, round and reactive to light and accommodation. Ears: No lesions. Nose appeared normal. Throat: No exudate or erythema. NECK: Supple. No JVD, no carotid bruit. No lymphadenopathy or thyromegaly. LUNGS: Decreased breath sounds but clear to auscultation. Percussion note normal. Chest symmetrical. HEART: S1, S2, no S3. No murmurs. No cyanosis or clubbing. No ascites. Pulses: Dorsalis pedis and posterior tibial pulses +1 to +2 bilaterally. ABDOMEN: Soft. Nontender. Bowel sounds active. No CVA tenderness. No mass felt. EXTREMITIES: No edema. Full range of motion of all extremities, equal. NEUROLOGIC: No focal deficit. Cranial nerves II through XII are grossly intact. No headache, no double vision or headache. SKIN: Not dry. Intact. Turgor - normal. LYMPHATIC: No palpable lymph nodes/no lymphedema. MUSCULOSKELETAL: Normal joints with no swelling. Muscle tone is normal. LABS: Hemoglobin 11, hematocrit 33, WBC 8,600, normal differential. Creatinine 1.5, BUN 38, potassium 3.8. ASSESSMENT: 1. EXTREME FATIGUE, WEAKNESS WITH DEHYDRATION SEEMS TO BE RESOLVING. 2. RENAL AZOTEMIA/RENAL FAILURE SEEMS TO BE RESOLVING. 3. URINARY TRACT INFECTION WAS UNDERLYING CAUSE FOR ALL THESE PROBLEMS WHICH SEEMS TO BE RESPONDING TO IV ANTIBIOTICS. 4. ANEMIA STABLE. PLAN: 1. Discontinue IV fluids. 2. The patient is stabilizing and maybe patient can be discharged tomorrow. TIME SPENT: More than 30 minutes. Addendum: The patient has been using a rolling walker during her hoispital stay at the recommendation of [employer] and she is agreeable to using a walker at home after discharge due to her degenerative joint diseae of the spine and impaired balance. Plan and coordination of the patient's care discussed in the presence of nurse. VLAD
--- NOTE | 2018-11-29 12:12 | ECHO2D ---
Date of Exam: 11/29/18 Ordering Physician: DR. KYLER DAVIS Room #: 117 Reason for Echo: EVALUATE LV FUNCTION, HTN, CAD, HX CVA M-Mode Normal Adult Results LV Dimensions Normal Adult Results AoV Opening excursions >1.6 1.4 LVEDD-base- 3.5-5.8 4.5 Ao root dimensions 2.0-3.7 3.2 LVESD-base- 3.1-4.6 L. Atrium dimensions 1.9-3.8 4.3 Post. Wall thickness 0.8-1.1 1.3 IV septum (thickness) 0.7-1.2 1.4 Post. Wall excursion 0.72-1.3 NORMAL Septal motion NORMAL Systolic motion R. Ventricular cavity 1.5-2.0 NORMAL LVEF 60% 50% Paradoxical septal wall motion NORMAL 2-D : ENLARGED LEFT ATRIAL CAVITY--CALCIFIC AORTIC VALVES-NORMAL LEFT VENTRICULAR CONTRACTILITY--NO EFFUSION, NO THROMBUS M-MODE: MV: A GREATER THAN E WAVE BY DOPPLER AV: CALCIFIC AORTIC VALVE TV: NORMAL PV: NORMAL CHAMBER SIZE: ENLARGED LEFT ATRIAL CAVITY WALL MOTION: NORMAL PERICARDIUM: NORMAL INTERPRETATION: 1. LEFT VENTRICULAR HYPERTROPHY WITH ENLARGED LEFT ATRIAL CAVITY 2. NORMAL LEFT VENTRICULAR CONTRACTILITY 3. CALCIFIC AORTIC VALVE--NO THROMBUS 4. NORMAL LEFT VENTRICLE SIZE MTDD
--- NOTE | 2018-11-29 12:19 | CM.DICTOOL ---
ADMISSION: 11/24/18 11:05 DISCHARGE: 2018 DATE OF SERVICE: 11/29/18 FINAL DIAGNOSIS ANEMIA UTI, KLEBSIELLA PNEUMONIAE DEHYDRATION GENERALIZED WEAKNESS DIABETES, TYPE 2 (A1C 5.9 August,) CKD HYPERTENSION DYSLIPIDEMIA DEPRESSION ( ON LEXAPRO) OSTEOARTHRITIS GERD DJD SPINE BURSITIS, RIGHT SHOULDER COMPRESSION FRACTURE, L4 PER HISTORY GRIEVING ( OF SPOUSE) ECHOCARDIOGRAM COMPLETED: LAST VITALS Temp Pulse Resp BP Pulse Ox 98.1 F 62 16 141/72 H 98 11/29/18 04:36 11/29/18 04:36 11/29/18 04:36 11/29/18 04:36 11/29/18 04:36 TAKE THESE MEDICATIONS AT HOME Hydrocodone Bitart/Acetaminophen ([place] 10-325) 1 tab PO Q12HR PRN PRN Reason: MODERATE PAIN Last Admin: 11/28/18 20:36 Dose: 1 tab Amlodipine Besylate (Norvasc) 5 mg PO BEDTIME BRYCE Last Admin: 11/28/18 20:29 Dose: 5 mg Cephalexin (Keflex) 500 mg PO Q8HR BRYCE Stop: 11/30/18 12:59 Last Admin: 11/29/18 04:38 Dose: 500 mg Clopidogrel Bisulfate (Plavix) 75 mg PO BEDTIME BRYCE Last Admin: 11/28/18 20:28 Dose: 75 mg Escitalopram Oxalate (Lexapro) 20 mg PO BEDTIME BRYCE Last Admin: 11/28/18 20:28 Dose: 20 mg Hydrochlorothiazide (Hydrochlorothiazide) 12.5 mg PO BEDTIME BRYCE Last Admin: 11/28/18 20:29 Dose: 12.5 mg Losartan Potassium (Cozaar) 100 mg PO BEDTIME BRYCE Last Admin: 11/28/18 20:28 Dose: 100 mg Montelukast Sodium (Singulair) 10 mg PO BEDTIME BRYCE Last Admin: 11/28/18 20:28 Dose: 10 mg Pantoprazole Sodium (Protonix) 40 mg PO BEDTIME BRYCE Last Admin: 11/28/18 20:27 Dose: 40 mg Ranitidine HCl (Zantac) 150 mg PO BID PRN PRN Reason: Heartburn Last Admin: 11/26/18 12:07 Dose: 150 mg ALLERGIES codeine Adverse Reaction (Verified 11/01/16 13:07) morphine Adverse Reaction (Verified 08/12/17 13:07) Sulfa (Sulfonamide Antibiotics) Adverse Reaction (Verified 11/01/16 13:07) DISCONTINUED MEDICATIONS NEW PRESCRIPTIONS: KEFLEX 500 MG BID FOR 7 DAYS ZANAFLEX 2 MG TAKE AT BEDTIME NEEDED FOR LEG CRAMPS SMOKING: NOT APPLICABLE DISEASE SPECIFIC EDUCATION: HYDRATION NUTRITION PRESCRIPTIONS USE OF WALKER (THERAPY) LAB REVIEW: 11/29/18 05:00 11/29/18 05:00 11/29/18 05:00: Sodium 136.9, Potassium 3.98, Chloride 100.8, Carbon Dioxide 29.3, Anion Gap 10.78, BUN 47.9 H, Creatinine 1.72 H, Estimated GFR (MDRD) 28.00 , BUN/Creatinine Ratio 27.84, Glucose 88.7, Calcium 9.06, Total Bilirubin 0.30, AST 32.9, ALT 22.9, Alkaline Phosphatase 43.4 L, Total Protein 6.67, Albumin 3.70, Globulin 2.97, Albumin/Globulin Ratio 1.24 11/29/18 05:00: WBC 7.99, RBC 3.43 L, Hgb 10.2 L, Hct 31.7 L, MCV 92.4, MCH 29.7 , MCHC 32.2, RDW Coeff of Destiny 13.4, Plt Count 263, Immature Gran % (Auto) 3.3, Neut % (Auto) 36.2, Lymph % (Auto) 45.6, [place] % (Auto) 8.6, Eos % (Auto) 5.3, Baso % (Auto) 1.0, Immature Gran # (Auto) 0.3, Neut # (Auto) 2.9, Lymph # (Auto ) 3.6 H, [place] # (Auto) 0.7, Eos # (Auto) 0.4, Baso # (Auto) 0.1 PLAN: DISCHARGE HOME DIET: REGULAR DIET TOLERATED, ENCOURAGE LIQUIDS EAT AT LEAST 3 MEALS DAILY, EAT SNACKS BETWEEN MEALS ACTIVITY: RESUME TOLERATED A ROLLING WALKER BEEN ORDERED FROM [facility]; THIS WILL BE DELIVERED TO THE HOME AT THE REQUEST OF THE PATIENT AN APPOINTMENT IS SCHEDULED WITH DR. DAVIS/LIZBETH MONDRAGON APRN ON AT 10:45 AM CODE STATUS: DO NOT RESUSCITATE AT REQUEST OF PATIENT MS. VALDEZ IS ALERT AND ORIENTED X 3. MS. VALDEZ IS AGREEABLE TO PLANS FOR DISCHARGE. SHE REPORTS SHE RESIDES AT HOME AND HER GRANDDAUGHTER LIVES WITH HER. SHE IS INDEPENDENT WITH ACTIVITIES OF DAILY LIVING. SHE IS VERY PLEASANT AND TALKATIVE. MS. VALDEZ IS AMBULATORY WITH USE OF A QUAD CANE, BUT HAS STARTED USING A ROLLING WALKER DURING HER HOSPITAL STAY. SHE PREFERS THE ROLLING WALKER AND THIS IS RECOMMENDED BY PHYSICAL THERAPY. WE HAVE ARRANGED FOR DELIVERY OF A ROLLING WALKER TO HER HOME. MS. VALDEZ IS CONTINENT OF BOWEL AND BLADDER. SHE REPORTS DRIBBLING AND STRESS INCONTINENCE AT TIMES. SHE IS ABLE TO FEED HERSELF AND HER APPETITE HAS IMPROVED AT 50-100% DURING HER STAY. SKIN TURGOR HAS IMPROVED, HYDRATION STATUS IMPROVED. SKIN IS INTACT AND FREE OF DECUBITUS ULCERS. MD LIZBETH SANFORD, CIERA
--- NOTE | 2018-11-29 13:27 | PN ---
DATE OF SERVICE: 11/25/18 SUBJECTIVE: The patient was seen and examined today with the nurse practitioner. The patient 's kidney functions are better. She has a UTI. She will be treated with antibiotics. Condition is stable. She is feeling a lot better. TIME SPENT: More than 30 minutes. Plan and coordination of the patient's care discussed in the presence of nurse. VLAD
--- NOTE | 2018-11-30 11:19 | DS ---
DATE OF SERVICE: 11/29/18 FINAL DIAGNOSIS: ANEMIA UTI, KLEBSIELLA PNEUMONIAE DEHYDRATION GENERALIZED WEAKNESS DIABETES, TYPE 2 (A1C 5.9 August,) CKD HYPERTENSION DYSLIPIDEMIA DEPRESSION ( ON LEXAPRO) OSTEOARTHRITIS GERD DJD SPINE BURSITIS, RIGHT SHOULDER COMPRESSION FRACTURE, L4 PER HISTORY GRIEVING ( OF SPOUSE) ECHOCARDIOGRAM COMPLETED: LAST VITALS: Temp Pulse Resp BP Pulse Ox 98.1 F 62 16 141/72 H 98 11/29/18 04:36 11/29/18 04:36 11/29/18 04:36 11/29/18 04:36 11/29/18 04:36 DISCHARGE INSTRUCTIONS: DISCHARGE HOME. AN APPOINTMENT IS SCHEDULED WITH DR. DAVIS/LIZBETH MONDRAGON APRN ON AT 10:45 AM. CODE STATUS: DO NOT RESUSCITATE AT REQUEST OF PATIENT. TAKE THESE MEDICATIONS AT HOME: Hydrocodone Bitart/Acetaminophen ([place] 10-325) 1 tab PO Q12HR PRN Amlodipine Besylate (Norvasc) 5 mg PO BEDTIME BRYCE Cephalexin (Keflex) 500 mg PO Q8HR BRYCE Clopidogrel Bisulfate (Plavix) 75 mg PO BEDTIME BRYCE Escitalopram Oxalate (Lexapro) 20 mg PO BEDTIME BRYCE Hydrochlorothiazide (Hydrochlorothiazide) 12.5 mg PO BEDTIME BRYCE Losartan Potassium (Cozaar) 100 mg PO BEDTIME BRYCE Montelukast Sodium (Singulair) 10 mg PO BEDTIME BRYCE Pantoprazole Sodium (Protonix) 40 mg PO BEDTIME BRYCE Ranitidine HCl (Zantac) 150 mg PO BID PRN ALLERGIES: codeine Adverse Reaction (Verified 11/01/16 13:07) morphine Adverse Reaction (Verified 11/01/16 13:07) Sulfa (Sulfonamide Antibiotics) Adverse Reaction (Verified 11/01/16 13:07) NEW PRESCRIPTIONS: KEFLEX 500 MG BID FOR 7 DAYS ZANAFLEX 2 MG TAKE AT BEDTIME NEEDED FOR LEG CRAMPS SMOKING: NOT APPLICABLE DISEASE SPECIFIC EDUCATION: HYDRATION NUTRITION PRESCRIPTIONS USE OF WALKER (THERAPY) DIET: REGULAR DIET TOLERATED, ENCOURAGE LIQUIDS EAT AT LEAST 3 MEALS DAILY, EAT SNACKS BETWEEN MEALS ACTIVITY: RESUME TOLERATED A ROLLING WALKER BEEN ORDERED FROM [employer] [facility]; THIS WILL BE DELIVERED TO THE HOME AT THE REQUEST OF THE PATIENT HOSPITAL COURSE: 88 year old white female hospitalized with weakness and inability to walk on her own and fatigue. The patient was worked up and had urinary tract infection and treated with Rocephin. She is going to be discharged on Keflex. The patient also had creatinine of 2.3 with BUN more than 50 with renal failure which seems to have been resolving with improved kidney functions. Hydration status improved and her appetite has improved. She is able to walk with the walker on her own. She has chronic anemia for which she was recommended colonoscopy which she declined. She doesn't want any further workup for anemia. She wants to go home and take the medications for now. Keflex 500mg BID for 5 days was given. She also is going to have a walker. The patient's UTI was treated with Rocephin as mentioned above. The patient has no symptoms of it. CONDITION: Stable. TIME SPENT: More than 60 minutes. MTDD
--- NOTE | 2018-11-30 11:23 | PN ---
11/24/18: Level 5 11/25/18: Intermediate 11/26/18: Intermediate 11/27/18: Intermediate 11/28/18: Intermediate 11/29/18: D as in discharge MTDD
--- NOTE | 2018-11-30 11:43 | PN ---
DATE OF SERVICE: 11/29/18 SUBJECTIVE: The patient was seen and examined today. 89 year old white female hospitalized with renal failure, extreme weakness, fatigue and tired feeling. The patient had evidence of urinary tract infection. She is going to be on Keflex. She is up and about feeling a lot better, a little stronger. REVIEW OF SYSTEMS: CONSTITUTIONAL: No night sweats. No fatigue, malaise, lethargy. No fever or chills. Still weakness but much less than before. HEENT: Eyes: No visual changes. No eye pain. No eye discharge. ENT: No runny nose. No epistaxis. No sinus pain. No sore throat. No odynophagia. No congestion. RESPIRATORY: No cough, no congestion. No hemoptysis. No shortness of breath. CARDIOVASCULAR: No angina symptoms. No CHF symptoms. No atypical chest pain for CAD. No palpitations. No PND. No orthopnea. GASTROINTESTINAL: No abdominal pain. No nausea or vomiting. No diarrhea or constipation. No hematemesis. No hematochezia. Appetite has improved. GENITOURINARY: No urgency. No frequency. No dysuria. No hematuria. No obstructive symptoms. No discharge. No pain. No significant abnormal bleeding. MUSCULOSKELETAL: No musculoskeletal pain; no joint swelling. NEUROLOGICAL: No headache. No neck pain. No syncope. No seizures. No dizziness. PSYCHIATRIC: Not anxious. No depression. No suicidal thoughts. No homicidal thoughts. SKIN: No rash. No lesions. No wounds. ENDOCRINE: No unexplained weight loss. No weight gain. HEMATOLOGIC/LYMPHATIC: No anemia. No purpura. No petechiae. No prolonged or excessive bleeding. No palpable lymph nodes. PHYSICAL EXAMINATION: VITAL SIGNS: Temperature 98.1, pulse 60, respiratory rate 16, blood pressure 140/70 and pulse ox 98%. HEENT: Head normocephalic, atraumatic. Eyes: Extraocular muscles are intact. Pupils are equal, round and reactive to light and accommodation. Ears: No lesions. Nose appeared normal. Throat: No exudate or erythema. NECK: Supple. No JVD, no carotid bruit. No lymphadenopathy or thyromegaly. LUNGS: Decreased breath sounds but clear to auscultation. Percussion note normal. Chest symmetrical. HEART: S1, S2, no S3. No murmurs. No cyanosis or clubbing. No ascites. Pulses: Dorsalis pedis and posterior tibial pulses +1 to +2 bilaterally. ABDOMEN: Soft. Nontender. Bowel sounds active. No CVA tenderness. No mass felt. EXTREMITIES: No edema. Full range of motion of all extremities, equal. NEUROLOGIC: No focal deficit. Cranial nerves II through XII are grossly intact. No headache, no double vision or headache. SKIN: Not dry. Intact. Turgor - a lot better. Hydration status has improved. LYMPHATIC: No palpable lymph nodes/no lymphedema. MUSCULOSKELETAL: Normal joints with no swelling. Muscle tone is normal. LABS: Hgb 10.2, hct 31, WBC 7,300 normal differential, creatinine 1.7, BUN 47. The patient has chronic anemia and strongly advised to have colonoscopy done which she declined. She declined the same thing in the past. ASSESSMENT: 1. Fatigue 2. Weakness 3. Kidney failure 4. Urinary tract infection The patient has chronic kidney disease and she declined any ultrasound or any further workup. She wants to be left alone and wants to go home. The patient is stable enough to be discharged. The patient is going to have a walker and Keflex 500mg BID for 5 days. Advised to increase the fluid intake and eat regularly. CONDITION: Stable. TIME SPENT: More than 30 minutes. Plan and coordination of the patient's care discussed in the presence of nurse. VLAD
== END 2018-11-29 12:41 | disposition home or self-care (01) | DRG 690 ==
LOC: MEDSURG B 11:05
PROVIDERS: ADMIT Internal Medicine; ATTEND Internal Medicine
DX: N39.0 Urinary tract infection, site not specified; M71.9 Bursopathy, unspecified; M19.90 Unspecified osteoarthritis, unspecified site; K21.9 Gastro-esophageal reflux disease without esophagitis; F32.9 Major depressive disorder, single episode, unspecified; N18.9 Chronic kidney disease, unspecified; R53.1 Weakness; B96.1 Klebsiella pneumoniae [K. pneumoniae] as the cause of diseases classified elsewhere; R06.02 Shortness of breath; M47.9 Spondylosis, unspecified; E86.0 Dehydration; E11.9 Type 2 diabetes mellitus without complications; E11.22 Type 2 diabetes mellitus with diabetic chronic kidney disease; I10 Essential (primary) hypertension; E78.5 Hyperlipidemia, unspecified

== ENCOUNTER 2019-03-16 18:50 | Inpatient (IN) ==
--- NOTE | 2019-03-16 20:08 | ED.PDOC ---
General ED Provider: Dr. KYLAH MALONE Chief Complaint: Weakness Stated Complaint: shes been weak for several weeks--she passed out at pics Time Seen by Physician: 20:08 Mode of Arrival: Ambulance Information Source: Patient and EMT Primary Care Provider: KYLER CAMARGO Nursing and Triage Documentation Reviewed and Agree: Yes Does patient meet sepsis criteria?: No System Inflammatory Response Syndrome: Not Applicable Sepsis Protocol: For patient's 13 years and over: Temp is 96.8 and below OR 101 and greater Pulse >90 BPM Resp >20/minute Acutely Altered Mental Status Are patient's symptoms suggestive of a new infection, such as: -Pneumonia -Skin, Soft Tissue -Endocarditis -UTI -Bone, Joint Infection -Implantable Device -Acute Abdominal Infection -Wound Infection -Meningitis -Blood Stream Catheter Infection -Unknown Neurological Complaint Exam Syncope/Near Syncope Complaint/Exam Onset/Duration: today Symptoms Are: Resolved Episodes Lasting: Seconds Episodes Witnessed: Yes Loss of Consciousness: No Associated Head Trauma: No Activity at Onset: With exertion Aggravating: Position change Alleviating: Reports Spontaneous resolution Associated Signs and Symptoms: Reports Weakness Cardiac Risk Factors: Reports Hypertension JVD Present: No Carotid Bruit Present: No Nystagmus Present: No Gag Reflex Present: Yes Meningeal Signs Positive: No Focal Weakness: Present None Focal Sensory Loss: Present None Gait: Unsteady [id number]: Normal Findings Romberg Test Positive: No Heel to Toe Normal: No [place]-Hallpike Test Positive: No Differential Diagnoses: Dysrhythmia Quality Indicators for AMI: EKG in 10min. Review of Systems Review Of Systems Constitutional: Reports No symptoms Eyes: Reports No symptoms Ears, Nose, Mouth, Throat: Reports No symptoms Respiratory: Reports No symptoms Cardiac: Reports No symptoms GI: Reports No symptoms : Reports No symptoms Musculoskeletal: Reports No symptoms Skin: Reports No symptoms Neurological: Reports No symptoms Endocrine: Reports No symptoms Hematologic/Lymphatic: Reports No symptoms All Other Systems: Reviewed and Negative [facility] Social History Smoking and tobacco status: Never smoker History of recent travel: No Female Reproductive History Menstrual Hx Hysterectomy: Yes Hx Tubal Ligation: No Physical Exam Physical Exam Appearance: Well-appearing Ill-appearing: None Pain Distress: None Eyes: GUILLAUME, EOMI and Conjunctiva clear ENT: Ears normal and Nose normal Neck: Supple Respiratory: Airway patent Cardiovascular: RRR, Pulses normal and No rub GI/: Soft and Nontender Musculoskeletal: Normal strength Skin: Warm and Dry Neurological: Sensation intact, Motor intact, Reflexes intact, Cranial nerves intact, Alert and Oriented Psychiatric: Affect appropriate, Mood appropriate and Anxious Interpretation EKG Interpretation Time of EKG #1: 20:06 Rate: Normal Rhythm: Sinus Ectopy: None [place]: NL ST Segment: Normal Interpretation: pvcs Physician Notification Case Discussed Physician Notified: dr camargo Time of Notification: 20:06 Critical Care Note Critical Care Note Total Time (mins): 15 Course Course Hematology/Chemistry: 03/16/19 19:02 03/16/19 19:02 Orders, Labs, Meds: Lab Review 03/16/19 03/16/19 19:02 19:02 WBC 5.55 RBC 3.39 L Hgb 10.2 L Hct 31.3 L MCV 92.3 MCH 30.1 MCHC 32.6 RDW Coeff of Destiny 13.3 Plt Count 292 Immature Gran % (Auto) 0.2 Neut % (Auto) 36.3 Lymph % (Auto) 47.7 [place] % (Auto) 10.3 H Eos % (Auto) 5.0 Baso % (Auto) 0.5 Immature Gran # (Auto) 0.0 Neut # (Auto) 2.0 Lymph # (Auto) 2.7 [place] # (Auto) 0.6 Eos # (Auto) 0.3 Baso # (Auto) 0.0 Sodium 135.9 Potassium 3.91 Chloride 96.4 L Carbon Dioxide 27.7 Anion Gap 15.71 BUN 33.4 H Creatinine 2.23 H Estimated GFR (MDRD) 21.00 BUN/Creatinine Ratio 14.97 Glucose 138.6 H Calcium 9.85 Total Bilirubin 0.31 AST 34.6 ALT 12.3 Alkaline Phosphatase 46.6 L Total Creatine Kinase 95.0 Troponin I 0.060 Total Protein 7.63 Albumin 4.47 Globulin 3.16 Albumin/Globulin Ratio 1.41 Orders Category Date Time Status EKG-(ED ONLY) Stat CARDIO 03/16/19 18:55 Ordered ED NEWSPAPER COLUMNIST APPLIED .ONCE EMERGENCY 03/16/19 18:55 Active ED IV/MEDIPORT/POWERPORT .ONCE EMERGENCY 03/16/19 18:55 Active ED ORTHOSTATIC VITAL SIGNS .ONCE EMERGENCY 03/16/19 18:55 Active CBC W/ AUTO DIFF Stat LAB 03/16/19 19:02 Completed COMPREHENSIVE METABOLIC PANEL Stat LAB 03/16/19 19:02 Completed CREATINE KINASE Stat LAB 03/16/19 19:02 Completed TROPONIN I Stat LAB 03/16/19 19:02 Completed 0.9 % Sodium Chloride [Saline Flush] MEDS 03/16/19 18:55 Active 1 syr IVF PRN PRN Medications Generic Name Dose Route Start Last Admin Trade Name Freq PRN Reason Stop Dose Admin Sodium Chloride 1 syr 03/16/19 18:55 Saline Flush IVF PRN PRN To flush IV Vital Signs: Temp Pulse Resp BP Pulse Ox 03/16/19 19:51 72 166/66 H 03/16/19 19:50 64 137/69 03/16/19 19:49 62 137/65 03/16/19 18:50 99.3 F 67 16 121/52 L 99 Discharge Plan Discharge Patient Disposition: ADMITTED INPATIENT Discharge Problem: Weakness Prescriptions: No Action montelukast [Singulair] 10 MG tablet 10 mg PO BEDTIME RF: 0 amlodipine 5 MG tablet 5 mg PO BEDTIME RF: 0 pantoprazole [Protonix] [address] for susp in packet 40 mg PO BEDTIME RF: 0 ranitidine HCl [Acid Control (ranitidine)] 150 MG tablet 150 mg PO 1-2XD RF: 0 escitalopram oxalate 10 MG tablet 20 mg PO BEDTIME RF: 0 losartan-hydrochlorothiazide 1 EACH tablet 1 ea PO BEDTIME RF: 0 clopidogrel [Plavix] 75 MG tablet 75 mg PO BEDTIME RF: 0 hydrocodone-acetaminophen 1 EACH tablet 1 ea PO BID RF: 0 cephalexin 500 MG capsule 500 mg PO Q12HR Qty: 10 RF: 0 tizanidine [Zanaflex] 2 MG capsule 2 mg PO BEDTIME PRN (Reason: LEG CRAMPS) Qty: 30 RF: 0 ED Provider: KYLAH MALONE Condition: Good
[2019-03-16 21:00] VITALS: BMI 27.1
[2019-03-16] MEDS ORDERED: LOSARTAN HYDROCHLOROTHIAZIDE PO SCH (21:00)
[2019-03-16] MEDS: LEXAPRO PO SCH (21:09)
[2019-03-16] MEDS: NORCO 10-325 PO SCH (21:09)
[2019-03-16] MEDS: NORVASC PO SCH (21:09)
[2019-03-16] MEDS: PROTONIX PO SCH (21:10)
[2019-03-16] MEDS: PLAVIX PO SCH (21:10)
--- NOTE | 2019-03-17 09:07 | PCM.PROG ---
Attending Provider: ATTENDING PROVIDER: Dr. KYLER DAVIS This patient is seen with Maya Garcia, Nurse Practitioner. DATE OF SERVICE: 03/17/19 SUBJECTIVE: This 88 year old /WHITE F was hospitalized 03/16/19. The patient is resting comfortably. She had near syncopal episode and states she just felt weak after a period of time standing up. Weakness had been gradually getting worse over the last two to three weeks. REVIEW OF SYSTEMS: CONSTITUTIONAL: No night sweats. No fatigue, malaise, lethargy. No fever or chills. Weakness. HEENT: Eyes: No visual changes. No eye pain. No eye discharge. ENT: No runny nose. No epistaxis. No sinus pain. No odynophagia. No congestion. RESPIRATORY: No cough, no congestion. No hemoptysis. No shortness of breath. CARDIOVASCULAR: No angina symptoms. No CHF symptoms. No atypical chest pain for CAD. No palpitations. No orthopnea.. GASTROINTESTINAL: No abdominal pain. No nausea or vomiting. No diarrhea or constipation. No hematemesis. No hematochezia. GENITOURINARY: No urgency. No frequency. No dysuria. No hematuria. No obstr uctive symptoms. No discharge. No pain. No significant abnormal bleeding. MUSCULOSKELETAL: No musculoskeletal pain; no joint swelling. NEUROLOGICAL: Awake, alert, oriented to time, place and person. No headache. No neck pain. No syncope. No seizures. No dizziness. PSYCHIATRIC: Not anxious. No depression. No suicidal thoughts. No homicidal thoughts. SKIN: No rash. No lesions. No wounds. ENDOCRINE: No unexplained weight loss. No weight gain. HEMATOLOGIC/LYMPHATIC: No anemia. No purpura. No petechiae. No prolonged or excessive bleeding. No palpable lymph nodes. PHYSICAL EXAMINATION: GENERAL: The patient is awake, alert and oriented, lying in bed in no distress. VITAL SIGNS: Temperature 97.7 F, Pulse 70, Respiratory Rate 16, BP 160/82, Pulse Ox 98% HEENT: Head normocephalic, atraumatic. Eyes: Extraocular muscles are intact. Pupils are equal, round and reactive to light and accommodation. Ears: No lesions. Nose appeared normal. Throat: No exudate or erythema. NECK: Supple. No JVD, no carotid bruit. No lymphadenopathy or thyromegaly. LUNGS: Diminished breath sounds. Clear to auscultation. Percussion note normal. Chest symmetrical. HEART: S1, S2, no S3. No murmurs. No cyanosis or clubbing. No ascites. Pulses: Dorsalis pedis and posterior tibial pulses +1 to +2 both sides. ABDOMEN: Soft. Non-tender. Bowel sounds active. No CVA tenderness. No mass felt. EXTREMITIES: No edema. Full range of motion of all extremities, equal. NEUROLOGIC: No focal deficit. Cranial nerves II through XII are grossly intact. No headache, no double vision or headache. SKIN: Not dry. Intact. Turgor-normal. LYMPHATIC: No palpable lymph nodes/no lymphedema. MUSCULOSKELETAL: Normal joints with no swelling. Muscle tone is normal. LAB REVIEW: 03/17/19 03:04 03/17/19 03:04 03/17/19 03:05: Urine Color Yellow, Urine Clarity Slightly, Urine pH 5.0, Ur Specific [place] 1.025, Urine Protein Negative, Urine Glucose (UA) Negative, Urine Ketones Negative, Urine Blood Negative, Urine Nitrite Negative, Urine Bilirubin Negative, Urine Urobilinogen 0.2, Ur Leukocyte Esterase Negative, Urine Microscopic WBC 10-20, Ur Squamous Epith Cells 10-20, Ur Transition Epith Cell 0-2, Urine Bacteria 1+, Urine Mucus 1+ 03/17/19 03:04: Sodium 136.5, Potassium 3.87, Chloride 98.3, Carbon Dioxide 28.7, Anion Gap 13.37, BUN 36.1 H, Creatinine 1.90 H, Estimated GFR (MDRD) 25.00, BUN/Creatinine Ratio 19.00, Glucose 106.5 H, Calcium 9.32, Total Bilirubin 0.31, AST 30.4, ALT 10.9, Alkaline Phosphatase 39.0 L, Total Protein 6.96, Albumin 3.99, Globulin 2.97, Albumin/Globulin Ratio 1.34 03/17/19 03:04: WBC 5.47, RBC 3.35 L, Hgb 10.2 L, Hct 31.3 L, MCV 93.4, MCH 30.4, MCHC 32.6, RDW Coeff of Destiny 13.2, Plt Count 270, Immature Gran % (Auto) 0.2, Neut % (Auto) 24.3, Lymph % (Auto) 57.4 H, [place] % (Auto) 9.9, Eos % (Auto) 7.3 H, Baso % (Auto) 0.9, Immature Gran # (Auto) 0.0, Neut # (Auto) 1.3 L, Lymph # (Auto) 3.1, [place] # (Auto) 0.5, Eos # (Auto) 0.4, Baso # (Auto) 0.1 03/17/19 03:04: Total Creatine Kinase 89.7, Troponin I 0.048 03/16/19 19:07: Iron 51.0, TIBC 282, % Saturation 18, Vitamin B12 530 03/16/19 19:07: Ferritin 171.00 03/16/19 19:02: Sodium 135.9, Potassium 3.91, Chloride 96.4 L, Carbon Dioxide 27.7, Anion Gap 15.71, BUN 33.4 H, Creatinine 2.23 H, Estimated GFR (MDRD) 21.00, BUN/Creatinine Ratio 14.97, Glucose 138.6 H, Calcium 9.85, Total Bilirubin 0.31, AST 34.6, ALT 12.3, Alkaline Phosphatase 46.6 L, Total Creatine Kinase 95.0, Troponin I 0.060, Total Protein 7.63, Albumin 4.47, Globulin 3.16, Albumin/Globulin Ratio 1.41 03/16/19 19:02: WBC 5.55, RBC 3.39 L, Hgb 10.2 L, Hct 31.3 L, MCV 92.3, MCH 30.1, MCHC 32.6, RDW Coeff of Destiny 13.3, Plt Count 292, Immature Gran % (Auto) 0.2, Neut % (Auto) 36.3, Lymph % (Auto) 47.7, [place] % (Auto) 10.3 H, Eos % (Auto) 5.0, Baso % (Auto) 0.5, Immature Gran # (Auto) 0.0, Neut # (Auto) 2.0, Lymph # (Auto) 2.7, [place] # (Auto) 0.6, Eos # (Auto) 0.3, Baso # (Auto) 0.0 ASSESSMENT: Please see below. 1. Abnormal U/A, culture pending 2. Generalized weakness. 3. Near syncope 4. Dehydration 5. Underline chronic kidney disease. PLAN: 1. Normal saline at 75cc 2. Rocephin 1 gram IV daily 3. Chest x-ray 4. Urine culture. Plan and coordination of the patient's care discussed in the presence of Certified Recreational Therapist and nurse. SCRIBED BY: April HINES scribed while in presence of service performed by Dr. Davis/Maya Garcia APRN on 03/17/19 ([id number])
[2019-03-17] MEDS: NORCO 10-325 PO SCH ×2 (09:21→20:17)
[2019-03-17] MEDS: HYDROCHLOROTHIAZIDE PO SCH (09:22)
[2019-03-17] MEDS: COZAAR PO SCH (09:22)
[2019-03-17] MEDS: ROCEPHIN 1 GM/50 ML D5W 1 GM/50 ML BAG IV SCH (09:23)
[2019-03-17] MEDS: LOVENOX SUBCUT SCH (09:24)
[2019-03-17] MEDS: SODIUM CHLORIDE 1,000 ML IV SCH (09:24)
--- NOTE | 2019-03-17 12:11 | US ---
EXAM: Bilateral carotid artery Doppler History: Dizziness. Comparison: Carotid Doppler 02/09/2013 Technique: Multiple sonographic images through the bilateral internal carotid arteries were obtained . Color duplex Doppler was used to interrogate vascular flow. Findings: The right ICA peak systolic velocity is within normal limits measuring 96 cm/sec. The right ICA/cca PSV ratio is normal at 1.6. The right vertebral artery is patent and demonstrates antegrade flow. Gr ay scale images demonstrate mild plaque buildup within the right internal carotid artery. The left ICA peak systolic velocity is within normal limits measuring 83 cm/sec. The left ICA/cca PS V ratio is normal at 1.6. The left vertebral artery is patent and demonstrates antegrade flow. [place] scale images demonstrate mild plaque buildup within the left internal carotid artery. Impression: No significant hemodynamic stenosis of the bilateral internal carotid arteries.
--- NOTE | 2019-03-17 12:22 | DI ---
EXAM: Chest two views HISTORY: Shortness of breath FINDINGS: Compared to 11/24/2018. Heart size is approaching upper limit normal, stable. There is a therosclerotic disease. There is diffuse, chronic appearing interstitial accentuation. No acute inf iltrates are seen. No vascular congestion. There is no consolidation, visible pleural fluid or pneu mothorax. Bones reveal no acute fracture. IMPRESSION: No acute cardiopulmonary process.
[2019-03-17] MEDS: LEXAPRO PO SCH (20:16)
[2019-03-17] MEDS: NORVASC PO SCH (20:17)
[2019-03-17] MEDS: PROTONIX PO SCH (20:17)
[2019-03-17] MEDS: PLAVIX PO SCH (20:17)
[2019-03-18] MEDS: SODIUM CHLORIDE 1,000 ML IV SCH (02:34)
[2019-03-18] MEDS: COZAAR PO SCH (09:36)
[2019-03-18] MEDS: NORCO 10-325 PO SCH ×2 (09:36→20:18)
[2019-03-18] MEDS: HYDROCHLOROTHIAZIDE PO SCH (09:36)
[2019-03-18] MEDS: LOVENOX SUBCUT SCH (09:37)
[2019-03-18] MEDS: ROCEPHIN 1 GM/50 ML D5W 1 GM/50 ML BAG IV SCH (09:51)
--- NOTE | 2019-03-18 11:28 | HP ---
DATE OF SERVICE: 03/16/19 HISTORY OF PRESENT ILLNESS: 88-year-old white female who was standing at home, stated she felt like she was going to pass out, had severe weakness. PAST MEDICAL HISTORY: Anemia Recurrent UTI Diabetes mellitus type 2 Chronic kidney disease Stage 3 Hypertension Dyslipidemia Depression Osteoarthritis GERD Degenerative joint disease of the spine Compression fracture L4 per history PAST SURGICAL HISTORY: Total hysterectomy REVIEW OF SYSTEMS: CONSTITUTIONAL: Generalized weakness, fatigue. No night sweats. No malaise, lethargy. No fever or chills. HEENT: Eyes: No visual changes. No eye pain. No eye discharge. ENT: No runny nose. No epistaxis. No sinus pain. No sore throat. No odynophagia. No ear pain. No congestion. RESPIRATORY: No cough, no congestion. No hemoptysis. No shortness of breath. CARDIOVASCULAR: No angina symptoms. No CHF symptoms. No atypical chest pain for CAD. No palpitations. No PND. No orthopnea. GASTROINTESTINAL: No abdominal pain. No nausea or vomiting. No diarrhea or constipation. No hematemesis. No hematochezia. GENITOURINARY: No urgency. No frequency. No dysuria. No hematuria. No obstructive symptoms. No discharge. No pain. No significant abnormal bleeding. MUSCULOSKELETAL: No musculoskeletal pain. No joint swelling. No arthritis. NEUROLOGICAL: Near syncopal episode. No headache. No neck pain. No seizures. No dizziness. PSYCHIATRIC: Not anxious. No depression. No suicidal thoughts. No homicidal thoughts. SKIN: No rash. No lesions. No wounds. ENDOCRINE: No unexplained weight loss. No weight gain. HEMATOLOGIC/LYMPHATIC: No anemia. No purpura. No petechiae. No prolonged or excessive bleeding. No palpable lymph nodes. PERSONAL/FAMILY/SOCIAL HISTORY: . No alcohol use. No tobacco use. Father CAD. Mother TIA. Brothers (7) all CA. Sisters (4) all . MEDICATIONS: (HOME) Singulair 10 mg p.o. bedtime Amlodipine 5 mg p.o. bedtime Pantoprazole 40 mg p.o. bedtime Ranitidine 150 mg p.o. 1-2 times a day Losartan-Hydrochlorothiazide 100-12.5 mg one each p.o. bedtime Hydrocodone-Acetaminophen 10-325 mg p.o. two each b.i.d. Escitalopram 20 mg p.o. bedtime Clopidogrel 75 mg p.o. bedtime Tizanidine 2 mg p.o. bedtime p.r.n. ALLERGIES: CODEINE, MORPHINE, SULFA PHYSICAL EXAMINATION: VITAL SIGNS: Temperature 99.3, heart rate 67, respirations 16, blood pressure 121/52, pulse ox 99%. HEENT: Head normocephalic, atraumatic. Eyes: Extraocular muscles are intact. Pupils are equal, round and reactive to light and accommodation. Ears: No lesions. Nose appeared normal. Throat: No exudate or erythema. NECK: Supple. No JVD, no carotid bruit. No lymphadenopathy or thyromegaly. LUNGS: Diminished breath sounds bilaterally. Clear to auscultation. Percussion note normal. Chest symmetrical. HEART: S1, S2, no S3. No murmur. No cyanosis or clubbing. No ascites. Pulses: Dorsalis pedis and posterior tibial pulses +1 to +2 bilaterally. ABDOMEN: Soft. Nontender. Bowel sounds active. No CVA tenderness. No mass felt. EXTREMITIES: No edema. Full range of motion of all extremities, equal. NEUROLOGIC: Alert and oriented times three. No focal deficit. Cranial nerves II through XII are grossly intact. No headache, no double vision or headache. SKIN: Not dry. Intact. Turgor - normal. LYMPHATIC: No palpable lymph nodes/no lymphedema. MUSCULOSKELETAL: Normal joints with no swelling. Muscle tone is normal. LAB/IMAGING: White count 5.5, hemoglobin 10.2, hematocrit 31.3, platelets 292. Sodium 135, potassium 3.9, BUN 33, creatinine 2.23, glucose 138. UA shows 1+ bacteria. ASSESSMENT: 1. GENERALIZED WEAKNESS 2. ACUTE DEHYDRATION 3. RENAL AZOTEMIA 4. UNDERLYING CHRONIC KIDNEY DISEASE 5. ABNORMAL UA, URINE CULTURE PENDING PLAN: 1. We will admit. 2. Routine telemetry orders. 3. CBC, CMP daily. 4. Continue all home medications. 5. Regular diet. 6. Rocephin 1 gm IV daily. 7. NS 75 cc/hr IV. 8. Tylenol as needed for fever. 9. Carotid scan. 10. Chest x-ray. 11. Will follow closely. TIME SPENT: More than 70 minutes. [facility]
[2019-03-18] MEDS ORDERED: TIZANIDINE 2 MG PO PRN (14:00)
[2019-03-18] MEDS ORDERED: ZANAFLEX PO PRN (14:29)
[2019-03-18] MEDS: LEXAPRO PO SCH (20:16)
[2019-03-18] MEDS: PROTONIX PO SCH (20:17)
[2019-03-18] MEDS: NORVASC PO SCH (20:17)
[2019-03-18] MEDS: PLAVIX PO SCH (20:17)
[2019-03-18] MEDS ORDERED: LOSARTAN HYDROCHLOROTHIAZIDE PO SCH (21:00)
[2019-03-19] MEDS: HYDROCHLOROTHIAZIDE PO SCH (08:39)
[2019-03-19] MEDS: ROCEPHIN 1 GM/50 ML D5W 1 GM/50 ML BAG IV SCH (08:39)
[2019-03-19] MEDS: NORCO 10-325 PO SCH ×2 (08:39→20:30)
[2019-03-19] MEDS: COZAAR PO SCH (08:39)
[2019-03-19] MEDS: LOVENOX SUBCUT SCH (08:40)
[2019-03-19] MEDS: PLAVIX PO SCH (20:29)
[2019-03-19] MEDS: KEFLEX PO SCH (20:29)
[2019-03-19] MEDS: LEXAPRO PO SCH (20:29)
[2019-03-19] MEDS: PROTONIX PO SCH (20:29)
[2019-03-19] MEDS: NORVASC PO SCH (20:30)
[2019-03-20] MEDS: HYDROCHLOROTHIAZIDE PO SCH (09:05)
[2019-03-20] MEDS: COZAAR PO SCH (09:05)
[2019-03-20] MEDS: NORCO 10-325 PO SCH ×2 (09:06→20:21)
[2019-03-20] MEDS: KEFLEX PO SCH ×2 (09:06→20:21)
[2019-03-20] MEDS: LOVENOX SUBCUT SCH (09:06)
[2019-03-20] MEDS: PROTONIX PO SCH (20:21)
[2019-03-20] MEDS: PLAVIX PO SCH (20:21)
[2019-03-20] MEDS: LEXAPRO PO SCH (20:21)
[2019-03-20] MEDS: NORVASC PO SCH (20:22)
[2019-03-20 22:18] VITALS: TEMP 98.1
[2019-03-21 05:11] VITALS: BP 96/44
--- NOTE | 2019-03-21 08:56 | PCM.PROG ---
Attending Provider: ATTENDING PROVIDER: Dr. KYLER DAVIS DATE OF SERVICE: 03/21/19 SUBJECTIVE: This 88 year old /WHITE F was hospitalized 03/16/19 with syncopal episode likely postural hypotension, renal azotemia which seems to have resolved. Appetite has improved. Neurological status has remained normal. Carotid scan is normal. She is oriented times three. REVIEW OF SYSTEMS: CONSTITUTIONAL: No night sweats. No fatigue, malaise, lethargy. No fever or chills. HEENT: Eyes: No visual changes. No eye pain. No eye discharge. ENT: No runny nose. No epistaxis. No sinus pain. No odynophagia. No congestion. RESPIRATORY: No cough, no congestion. No hemoptysis. No shortness of breath. CARDIOVASCULAR: No angina symptoms. No CHF symptoms. No atypical chest pain for CAD. No palpitations. No orthopnea.. GASTROINTESTINAL: No abdominal pain. No nausea or vomiting. No diarrhea or constipation. No hematemesis. No hematochezia. GENITOURINARY: No urgency. No frequency. No dysuria. No hematuria. No obstructive symptoms. No discharge. No pain. No significant abnormal bleeding. MUSCULOSKELETAL: No musculoskeletal pain; no joint swelling. NEUROLOGICAL: Awake, alert, oriented to time, place and person. No headache. No neck pain. No syncope. No seizures. No dizziness. PSYCHIATRIC: Not anxious. No depression. No suicidal thoughts. No homicidal thoughts. SKIN: No rash. No lesions. No wounds. ENDOCRINE: No unexplained weight loss. No weight gain. HEMATOLOGIC/LYMPHATIC: No anemia. No purpura. No petechiae. No prolonged or excessive bleeding. No palpable lymph nodes. PHYSICAL EXAMINATION: GENERAL: The patient is awake, alert and oriented, lying/sitting in bed in no distress. VITAL SIGNS: Temperature 98.1 F, Pulse 62, Respiratory Rate 14, BP 96/44, Pulse Ox 95% HEENT: Head normocephalic, atraumatic. Eyes: Extraocular muscles are intact. Pupils are equal, round and reactive to light and accommodation. Ears: No lesions. Nose appeared normal. Throat: No exudate or erythema. NECK: Supple. No JVD, no carotid bruit. No lymphadenopathy or thyromegaly. LUNGS: Clear to auscultation. Percussion note normal. Chest symmetrical. HEART: S1, S2, no S3. No murmurs. No cyanosis or clubbing. No ascites. Pulses: Dorsalis pedis and posterior tibial pulses +1 to +2 both sides. ABDOMEN: Soft. Non-tender. Bowel sounds active. No CVA tenderness. No mass felt. EXTREMITIES: No pedal edema. Full range of motion of all extremities, equal. NEUROLOGIC: No focal deficit. Cranial nerves II through XII are grossly intact. No headache, no double vision or headache. SKIN: Warm and dry. Intact. Turgor-normal. LYMPHATIC: No palpable lymph nodes/no lymphedema. MUSCULOSKELETAL: Normal joints with no swelling. Muscle tone is normal. LAB REVIEW: 03/21/19 04:05 03/21/19 04:05 03/21/19 04:05: Sodium 138.4, Potassium 3.94, Chloride 103.2, Carbon Dioxide 28.8, Anion Gap 10.34, BUN 19.0 H, Creatinine 1.23, Estimated GFR (MDRD) 41.00, BUN/Creatinine Ratio 15.44, Glucose 108.8 H, Calcium 9.67, Total Bilirubin 0.23, AST 22.7, ALT 10.9, Alkaline Phosphatase 38.4 L, Total Protein 6.54, Albumin 3.67, Globulin 2.87, Albumin/Globulin Ratio 1.27 03/21/19 04:05: WBC 4.84, RBC 3.32 L, Hgb 10.1 L, Hct 31.5 L, MCV 94.9, MCH 30.4, MCHC 32.1, RDW Coeff of Destiny 13.5, Plt Count 289, Immature Gran % (Auto) 0.4, Neut % (Auto) 37.8, Lymph % (Auto) 45.5, [place] % (Auto) 10.3 H, Eos % (Auto) 5.2, Baso % (Auto) 0.8, Immature Gran # (Auto) 0.0, Neut # (Auto) 1.8 L, Lymph # (Auto) 2.2, [place] # (Auto) 0.5, Eos # (Auto) 0.3, Baso # (Auto) 0.0 ASSESSMENT: Please see below. 1. Syncopal-like episode. 2. Postural hypotension with dehydration. 3. Renal azotemia resolved. 4. The patient is being treated for UTI with Keflex at the present time. PLAN: 1. Echocardiogram showed normal LV contractility, mild aortic stenosis. 2. Hyzaar 50/12.5 mg. Plan and coordination of the patient's care discussed in the presence of Improvement Rn and nurse. CONDITION: Stable SCRIBED BY: MECHE SWENSON Hris Coordinator scribed while in presence of service performed by Dr. KYLER DAVIS on 03/21/19 ([id number])
[2019-03-21] MEDS ORDERED: HYZAAR 50-12.5 MG TAB PO SCH (09:00)
[2019-03-21] MEDS: NORCO 10-325 PO SCH (09:16)
[2019-03-21] MEDS: KEFLEX PO SCH (09:16)
[2019-03-21] MEDS: LOVENOX SUBCUT SCH (09:17)
--- NOTE | 2019-03-21 11:17 | CM.DICTOOL ---
ADMISSION: 03/16/19 20:07 DISCHARGE: MARCH 21, 2019 DATE OF SERVICE: 03/21/19 FINAL DIAGNOSIS NEAR SYNCOPE POSTURAL HYPOTENSION DEHYDRATION RENAL AZOTEMIA UTI CHRONIC KIDNEY DISEASE ANEMIA DIABETES MELLITUS, TYPE 2 (A1C 5.9 08/2018) HYPERTENSION DYSLIPIDEMIA OSTEOARTHRITIS GERD DEPRESSION (ON LEXAPRO) L4 COMPRESSION FRACTURE PER HISTORY LAST ECHO 02/2019: LVEF 50% NORMAL LV CONTRACTILITY MILD AORTIC STENOSIS LAST VITALS Temp Pulse Resp BP Pulse Ox 98.1 F 62 14 96/44 L 95 03/21/19 05:10 03/21/19 05:10 03/21/19 05:10 03/21/19 05:10 03/21/19 05:10 TAKE THESE MEDICATIONS AT HOME Hydrocodone Bitart/Acetaminophen ([place] 10-325) 1 tab PO BID [facility] Last Admin: 03/21/19 09:16 Dose: 1 tab Documented by: Amlodipine Besylate (Norvasc) 5 mg PO BEDTIME [facility] Last Admin: 03/20/19 20:22 Dose: 5 mg Documented by: Cephalexin (Keflex) 500 mg PO Q12HR [facility] Stop: 03/22/19 20:59 Last Admin: 03/21/19 09:16 Dose: 500 mg Documented by: Clopidogrel Bisulfate (Plavix) 75 mg PO BEDTIME [facility] Last Admin: 03/20/19 20:21 Dose: 75 mg Documented by: : Escitalopram Oxalate (Lexapro) 20 mg PO BEDTIME [facility] Last Admin: 03/20/19 20:21 Dose: 20 mg Documented by: HCTZ/Losartan Potassium (Hyzaar 50-12.5 Mg Tab) 1 tab PO DAILY [facility] Last Admin: 03/21/19 09:16 Dose: 1 tab Documented by: Pantoprazole Sodium (Protonix) 40 mg PO BEDTIME [facility] Last Admin: 03/20/19 20:21 Dose: 40 mg Documented by: Tizanidine HCl (Zanaflex) 2 mg PO BEDTIME PRN PRN Reason: SPASMS Singular 10 mg PO BEDTIME DAILY Last Admin: ALLERGIES codeine Adverse Reaction (Verified 03/16/19 20:10) morphine Adverse Reaction (Verified 03/16/19 20:10) Sulfa (Sulfonamide Antibiotics) Adverse Reaction (Verified 03/16/19 20:10) DISCONTINUED MEDICATIONS Hyzaar 100 mg NEW PRESCRIPTIONS: HYZAAR 50-12.5 DAILY KEFLEX 500 MG BID FOR 5 DAYS SMOKING: NOT APPLICABLE DISEASE SPECIFIC EDUCATION: IMPORTANCE OF HYDRATION IMPORTANCE OF REGULAR MEALS ACTIVITY PRESCRIPTIONS LAB REVIEW: 03/21/19 04:05 03/21/19 04:05 03/21/19 04:05: Sodium 138.4, Potassium 3.94, Chloride 103.2, Carbon Dioxide 28.8, Anion Gap 10.34, BUN 19.0 H, Creatinine 1.23, Estimated GFR (MDRD) 41.00, BUN/Creatinine Ratio 15.44, Glucose 108.8 H, Calcium 9.67, Total Bilirubin 0.23, AST 22.7, ALT 10.9, Alkaline Phosphatase 38.4 L, Total Protein 6.54, Albumin 3.67, Globulin 2.87, Albumin/Globulin Ratio 1.27 03/21/19 04:05: WBC 4.84, RBC 3.32 L, Hgb 10.1 L, Hct 31.5 L, MCV 94.9, MCH 30.4, MCHC 32.1, RDW Coeff of Destiny 13.5, Plt Count 289, Immature Gran % (Auto) 0.4, Neut % (Auto) 37.8, Lymph % (Auto) 45.5, [place] % (Auto) 10.3 H, Eos % (Auto) 5.2, Baso % (Auto) 0.8, Immature Gran # (Auto) 0.0, Neut # (Auto) 1.8 L, Lymph # (Auto) 2.2, [place] # (Auto) 0.5, Eos # (Auto) 0.3, Baso # (Auto) 0.0 PLAN: DISCHARGE HOME DIET: REGULAR TOLERATED LIQUIDS TOLERATED ACTIVITY: RESUME TOLERATED CHANGE POSITIONS SLOWLY USE ROLLING WALKER FOR ADDED STABILITY WHEN WALKING AN APPOINTMENT IS SCHEDULED WITH DR. DAVIS/LIZBETH MONDRAGON APRN ON 2019 AT 11:45 CODE STATUS: DNR PER PATIENT REQUEST MS. VALDEZ IS ALERT AND ORIENTED X 4. MS. VALDEZ LIVES ALONE, BUT HAS REQUESTED ASSISTANCE WITH [employer]. SHE CONSENTED TO A REFERRAL TO [facility]. THE REFERRAL HAS BEEN SUBMITTED. SHE IS INDEPENDENT WITH ACTIVITIES OF DAILY LIVING. MS. VALDEZ IS INDEPENDENT WITH FEEDING. MEAL INTAKES ARE GOOD AT 75-100% OF MEALS. LIQUID INTAKE IS GOOD. MS. VALDEZ IS CONTINENT OF BOWEL AND BLADDER. SHE DENIES PAIN OR BURNING WI TH URINATION. MS. VALDEZ IS INDEPENDENT WITH BED MOBILITY AND IS ABLE TO TRANSFER FROM SITTING TO STANDING POSITION WITHOUT STAFF ASSISTANCE. SHE IS ABLE TO AMBULATE IN THE ROOM WITH USE OF A ROLLING WALKER. HYDRATION STATUS HAS IMPROVED. SKIN TURGOR IS GOOD. SKIN IS FREE OF DECUBITUS ULCERS. MD LIZBETH SANFORD, [employer]
--- NOTE | 2019-03-22 09:18 | PN ---
DATE OF SERVICE: 03/18/19 SUBJECTIVE: 88 year old white female hospitalized with syncopal episode. The patient is improving some. Hydration status seems to be improving. Kidney function still abnormal, stable 1.936 it was done yesterday. His labs were drawn, not available. REVIEW OF SYSTEMS: CONSTITUTIONAL: No night sweats. No fatigue, malaise, lethargy. No fever or chills. HEENT: Eyes: No visual changes. No eye pain. No eye discharge. ENT: No runny nose. No epistaxis. No sinus pain. No sore throat. No odynophagia. No congestion. RESPIRATORY: No cough, no congestion. No hemoptysis. No shortness of breath. CARDIOVASCULAR: No angina symptoms. No CHF symptoms. No atypical chest pain for CAD. No palpitations. No PND. No orthopnea. GASTROINTESTINAL: No abdominal pain. No nausea or vomiting. No diarrhea or constipation. No hematemesis. No hematochezia.Appetite is improving. GENITOURINARY: No urgency. No frequency. No dysuria. No hematuria. No obstructive symptoms. No discharge. No pain. No significant abnormal bleeding. MUSCULOSKELETAL: No musculoskeletal pain; no joint swelling. NEUROLOGICAL: No headache. No neck pain. No syncope. No seizures. No dizziness. PSYCHIATRIC: Not anxious. No depression. No suicidal thoughts. No homicidal thoughts. SKIN: No rash. No lesions. No wounds. ENDOCRINE: No unexplained weight loss. No weight gain. HEMATOLOGIC/LYMPHATIC: No anemia. No purpura. No petechiae. No prolonged or excessive bleeding. No palpable lymph nodes. PHYSICAL EXAMINATION: VITAL SIGNS: Temperature 98, pulse 60, respiratory rate 20, blood pressure 100/60 and pulse ox 97% HEENT: Head normocephalic, atraumatic. Eyes: Extraocular muscles are intact. Pupils are equal, round and reactive to light and accommodation. Ears: No lesions. Nose appeared normal. Throat: No exudate or erythema. NECK: Supple. No JVD, no carotid bruit. No lymphadenopathy or thyromegaly. LUNGS: Decreased breath sounds but clear to auscultation. Percussion note normal. Chest symmetrical. HEART: S1, S2, no S3. No murmurs. No cyanosis or clubbing. No ascites. Pulses: Dorsalis pedis and posterior tibial pulses +1 to +2 bilaterally. ABDOMEN: Soft. Nontender. Bowel sounds active. No CVA tenderness. No mass felt. EXTREMITIES: No edema. Full range of motion of all extremities, equal. NEUROLOGIC: No focal deficit. Cranial nerves II through XII are grossly intact. No headache, no double vision or headache. SKIN: Not dry. Intact. Turgor - normal. LYMPHATIC: No palpable lymph nodes/no lymphedema. MUSCULOSKELETAL: Normal joints with no swelling. Muscle tone is normal. LABS: Hgb 10.2, hct 31, WBC 5,400 normal differential, creatinine 1.9, BUN 36, potassium 3.8. ASSESSMENT: 1. Syncope, etiology unknown likely postural hypotension with dehydration. The patient hydration status seems to be improving. The patient not eating much at all, lost weight. Still grieving with of her a couple of years ago. PLAN: 1. GFR was 25 yesterday we will monitor the GFR. CONDITION: Stable. TIME SPENT: More than 30 minutes. Plan and coordination of the patient's care discussed in the presence of nurse. VLAD
--- NOTE | 2019-03-22 10:57 | PN ---
DATE OF SERVICE: 03/19/19 SUBJECTIVE: The patient was seen and examined this morning. The patient's condition seems to be improving. Her kidney functions are a lot better with creatinine 1.2, BUN 22. Cardiovascular status seems to have improved. She doesn't have any postural hypotension. REVIEW OF SYSTEMS: CONSTITUTIONAL: No night sweats. No fatigue, malaise, lethargy. No fever or chills. HEENT: Eyes: No visual changes. No eye pain. No eye discharge. ENT: No runny nose. No epistaxis. No sinus pain. No sore throat. No odynophagia. No congestion. RESPIRATORY: No cough, no congestion. No hemoptysis. Shortness of breath on minimal exertion. CARDIOVASCULAR: No angina symptoms. No CHF symptoms. No atypical chest pain for CAD. No palpitations. No PND. No orthopnea. GASTROINTESTINAL: No abdominal pain. No nausea or vomiting. No diarrhea or constipation. No hematemesis. No hematochezia. GENITOURINARY: No urgency. No frequency. No dysuria. No hematuria. No obstructive symptoms. No discharge. No pain. No significant abnormal bleeding. MUSCULOSKELETAL: No musculoskeletal pain; no joint swelling. NEUROLOGICAL: No headache. No neck pain. No syncope. No seizures. No dizziness. PSYCHIATRIC: Not anxious. No depression. No suicidal thoughts. No homicidal thoughts. SKIN: No rash. No lesions. No wounds. ENDOCRINE: No unexplained weight loss. No weight gain. HEMATOLOGIC/LYMPHATIC: No anemia. No purpura. No petechiae. No prolonged or excessive bleeding. No palpable lymph nodes. PHYSICAL EXAMINATION: HEENT: Head normocephalic, atraumatic. Eyes: Extraocular muscles are intact. Pupils are equal, round and reactive to light and accommodation. Ears: No lesions. Nose appeared normal. Throat: No exudate or erythema. NECK: Supple. No JVD, no carotid bruit. No lymphadenopathy or thyromegaly. LUNGS: Clear to auscultation. Percussion note normal. Chest symmetrical. HEART: S1, S2, no S3. No murmurs. No cyanosis or clubbing. No ascites. Pulses: Dorsalis pedis and posterior tibial pulses +1 to +2 bilaterally. ABDOMEN: Soft. Nontender. Bowel sounds active. No CVA tenderness. No mass felt. EXTREMITIES: No edema. Full range of motion of all extremities, equal. NEUROLOGIC: No focal deficit. Cranial nerves II through XII are grossly intact. No headache, no double vision or headache. SKIN: Not dry. Intact. Turgor - normal. LYMPHATIC: No palpable lymph nodes/no lymphedema. MUSCULOSKELETAL: Normal joints with no swelling. Muscle tone is normal. LABS: EKG has changed little bit with bundle branch block pattern. ASSESSMENT: 1. Syncopal episode likely postural hypotension 2. Renal azotemia seems to have resolved PLAN: 1. We will do an echo to evaluate her LV function. The patient had echo done recently but we will see if there is any change or not. 2. Encourage the patient to eat 3. Up and about 4. The patient still grieving but she seems to be coming out now. The patient went through the Holidays, [place]. That was her main reason why she grieving more than usual CONDITION: Stable TIME SPENT: More than 30 minutes. Plan and coordination of the patient's care discussed in the presence of nurse. VLAD
--- NOTE | 2019-03-22 13:09 | ECHO2D ---
Date of Exam: 03/20/19 Ordering Physician: DR. KYLER DAVIS Room #: 112 Reason for Echo: SYNCOPE Murmurs: SYSTOLIC I/ M-Mode Normal Adult Results LV Dimensions Normal Adult Results AoV Opening excursions >1.6 1.2 LVEDD-base- 3.5-5.8 4.8 Ao root dimensions 2.0-3.7 3.2 LVESD-base- 3.1-4.6 L. Atrium dimensions 1.9-3.8 4.3 Post. Wall thickness 0.8-1.1 1.1 IV septum (thickness) 0.7-1.2 1.2 Post. Wall excursion 0.72-1.3 NORMAL Septal motion NORMAL Systolic motion R. Ventricular cavity 1.5-2.0 NORMAL LVEF 60% 46% Paradoxical septal wall motion NORMAL 2-D : CALCIFIC AORTIC VALVES--MAYBE BICUSPID--CALCIFIC MITRAL VALVE ANNULUS--NORMAL LEFT VENTRICLE SIZE--ENLARGED LEFT ATRIAL SIZE--NO EFFUSION, NO THROMBUS M-MODE: MV: CALCIFIC MITRAL VALVE ANNULUS AV: CALCIFIC AORTIC VALVE--MAYBE BICUSPID--MILD AORTIC STENOSIS TV: NORMAL PV: NORMAL CHAMBER SIZE: ENLARGED LEFT ATRIAL CAVITY WALL MOTION: MILD HYPOKINETIC LEFT VENTRICLE PERICARDIUM: NORMAL INTERPRETATION: 1. BORDERLINE LEFT VENTRICULAR HYPERTROPHY WITH ENLARGED LEFT ATRIAL CAVITY 2. MILDLY HYPOKINETIC LEFT VENTRICLE WITH EJECTION FRACTION 46% 3. MILD CALCIFIC AORTIC STENOSIS VALVE AREA 1.9 CM2 4. CALCIFIC MITRAL VALVE ANNULUS 5. NORMAL LEFT VENTRICLE SIZE MTDD
--- NOTE | 2019-03-22 13:28 | PN ---
DATE OF SERVICE: 03/20/19 SUBJECTIVE: 88 year old white female hospitalized with syncopal episode. The patient's kidney functions have improved now it is 1.2 and 21 so the patient GFR has increased to 40cc. Hgb and hct stable with evidence of anemia which is chronic. She is feeling better, more alert and talkative. No symptoms of CHF or coronary insufficiency. REVIEW OF SYSTEMS: CONSTITUTIONAL: No night sweats. No fatigue, malaise, lethargy. No fever or chills. HEENT: Eyes: No visual changes. No eye pain. No eye discharge. ENT: No runny nose. No epistaxis. No sinus pain. No sore throat. No odynophagia. No congestion. RESPIRATORY: No cough, no congestion. No hemoptysis. No shortness of breath. CARDIOVASCULAR: No angina symptoms. No CHF symptoms. No atypical chest pain for CAD. No palpitations. No PND. No orthopnea. GASTROINTESTINAL: No abdominal pain. No nausea or vomiting. No diarrhea or constipation. No hematemesis. No hematochezia. GENITOURINARY: No urgency. No frequency. No dysuria. No hematuria. No obstructive symptoms. No discharge. No pain. No significant abnormal bleeding. MUSCULOSKELETAL: No musculoskeletal pain; no joint swelling. NEUROLOGICAL: No headache. No neck pain. No syncope. No seizures. No dizziness. PSYCHIATRIC: Not anxious. No depression. No suicidal thoughts. No homicidal thoughts. SKIN: No rash. No lesions. No wounds. ENDOCRINE: No unexplained weight loss. No weight gain. HEMATOLOGIC/LYMPHATIC: No anemia. No purpura. No petechiae. No prolonged or excessive bleeding. No palpable lymph nodes. PHYSICAL EXAMINATION: VITAL SIGNS: Temperature 98.4, pulse 57, respiratory rate 16, blood pressure 120/50 and pulse ox 94%. HEENT: Head normocephalic, atraumatic. Eyes: Extraocular muscles are intact. Pupils are equal, round and reactive to light and accommodation. Ears: No lesions. Nose appeared normal. Throat: No exudate or erythema. NECK: Supple. No JVD, no carotid bruit. No lymphadenopathy or thyromegaly. LUNGS: Decreased breath sounds but clear to auscultation. Percussion note normal. Chest symmetrical. HEART: S1, S2, no S3. No murmurs. No cyanosis or clubbing. No ascites. Pulses: Dorsalis pedis and posterior tibial pulses +1 to +2 bilaterally. ABDOMEN: Soft. Nontender. Bowel sounds active. No CVA tenderness. No mass felt. EXTREMITIES: No edema. Full range of motion of all extremities, equal. NEUROLOGIC: No focal deficit. Cranial nerves II through XII are grossly intact. No headache, no double vision or headache. SKIN: Not dry. Intact. Turgor - normal. LYMPHATIC: No palpable lymph nodes/no lymphedema. MUSCULOSKELETAL: Normal joints with no swelling. Muscle tone is normal. LABS: Hgb 9.3, hct 29, WBC 4,500 normal differential, creatinine 1.2, BUN 21 and potassium 3.9 ASSESSMENT: 1. Syncope likely postural hypotension 2. Dehydration seems to have resolved with good skin turgor 3. Renal Azotemia, resolved PLAN: 1. Continue the same treatment 2. The patient doesn't want to be on any antidepressant. She has agreed to eat three regular meals and not to skip meals 3. Advised to drink a lot fluids CONDITION: Stable. The patient had an echocardiogram done which showed normal LV contractility, calcific aortic valves with mild aortic stenosis likely the patient has bicuspid aortic valve. TIME SPENT: More than 30 minutes. Plan and coordination of the patient's care discussed in the presence of nurse. VLAD
--- NOTE | 2019-03-24 10:44 | DS ---
DATE OF SERVICE: 03/21/19 FINAL DIAGNOSIS: 1. NEAR SYNCOPE 2. POSTURAL HYPOTENSION 3. DEHYDRATION 4. RENAL AZOTEMIA 5. UTI 6. CHRONIC KIDNEY DISEASE 7. ANEMIA 8. DIABETES MELLITUS, TYPE 2 (A1C 5.9 08/2018) 9. HYPERTENSION 10.DYSLIPIDEMIA 11. OSTEOARTHRITIS 12.GERD 13.DEPRESSION (ON LEXAPRO) 14.L4 COMPRESSION FRACTURE PER HISTORY 15.LAST ECHO 02/2019: LVEF 50%, NORMAL LV CONTRACTILITY and MILD AORTIC STENOSIS LAST VITALS: Temp Pulse Resp BP Pulse Ox 98.1 F 62 14 96/44 L 95 03/21/19 05:10 03/21/19 05:10 03/21/19 05:10 03/21/19 05:10 03/21/19 05:10 DISCHARGE INSTRUCTIONS: DISCHARGE HOME. USE ROLLING WALKER FOR ADDED STABILITY WHEN WALKING. AN APPOINTMENT IS SCHEDULED WITH DR. DAVIS/LIZBETH MONDRAGON APRN ON 2019 AT 11:45. CODE STATUS: DNR PER PATIENT REQUEST. TAKE THESE MEDICATIONS AT HOME: Hydrocodone Bitart/Acetaminophen ([place] 10-325) 1 tab PO BID BRYCE Amlodipine Besylate (Norvasc) 5 mg PO BEDTIME BRYCE Cephalexin (Keflex) 500 mg PO Q12HR BRYCE Clopidogrel Bisulfate (Plavix) 75 mg PO BEDTIME BRYCE Escitalopram Oxalate (Lexapro) 20 mg PO BEDTIME BRYCE HCTZ/Losartan Potassium (Hyzaar 50-12.5 Mg Tab) 1 tab PO DAILY BRYCE Pantoprazole Sodium (Protonix) 40 mg PO BEDTIME BRYCE Tizanidine HCl (Zanaflex) 2 mg PO BEDTIME PRN Singular 10 mg PO BEDTIME DAILY ALLERGIES: codeine Adverse Reaction (Verified 03/16/19 20:10) morphine Adverse Reaction (Verified 03/16/19 20:10) Sulfa (Sulfonamide Antibiotics) Adverse Reaction (Verified 03/16/19 20:10) DISCONTINUED MEDICATIONS: Hyzaar 100 mg NEW PRESCRIPTIONS: HYZAAR 50-12.5 DAILY KEFLEX 500 MG BID FOR 5 DAYS SMOKING: NOT APPLICABLE DISEASE SPECIFIC EDUCATION: IMPORTANCE OF HYDRATION IMPORTANCE OF REGULAR MEALS ACTIVITY PRESCRIPTIONS DIET: REGULAR TOLERATED LIQUIDS TOLERATED ACTIVITY: RESUME TOLERATED CHANGE POSITIONS SLOWLY HOSPITAL COURSE: Maryanne Suarez was hospitalized with syncopal episode. The patient had postural hypotension. She has been dehydrated and not eating well and grieving with the Holidays from the of her recently. The patient had renal azotemia and the patient was treated with IV fluids. There was no evidence of fluid overload through out the slow hydration that was done. The patient's creatinine and BUN improved. Her hydration status improved, skin turgor was practically normal. Her appetite improved. The patient was also treated for urinary tract infection. The urine didn't grow any organisms but urine was somewhat abnormal. The patient's condition has improved. She was advised to eat at least 2 meals with a lot of snacks in between. Advised to keep up hydration status. The patient had an echocardiogram done which showed maybe mild aortic stenosis with normal LV contractility and mild enlarged left atrial cavity. LV size was normal. The patient's cardiovascular status was normal. CONDITION: Stable. TIME SPENT: More than 60 minutes. MTDD
--- NOTE | 2019-03-24 10:44 | PN ---
03/16/19: Level 5 03/17/19: Intermediate 03/18/19: Intermediate 03/19/19: Intermediate 03/20/19: Intermediate 03/21/19: D as in discharge MTDD
--- NOTE | 2019-03-28 13:33 | PN ---
DATE OF SERVICE: 03/16/19 SUBJECTIVE: The patient was brought to the emergency room by family because of weakness. The patient was seen and examined in the emergency room by Dr. Brooks. The patient had syncopal episode more like a postural. She didn't black out completely but the change in the posture and buckling of her knees, she almost passed out. In the emergency room, the entire workup was negative for any acute myocardial event. The patient was moving all of her extremities. Neurological status was normal. EKG showed sinus rhythm with ST-T wave changes. Electrolytes were acceptable. Oxygen saturation was more than 90% on room air. The patient will be admitted with the syncopal episode likely postural hypotension. The patient has been feeling weak and tired. The patient is going to be on routine telemetry orders. CONDITION: Stable. TIME SPENT: More than 30 minutes. Plan and coordination of the patient's care discussed in the presence of nurse. VLAD
--- NOTE | 2019-03-29 14:27 | PN ---
DATE OF SERVICE: 03/17/19 SUBJECTIVE: The patient was seen and examined with the nurse practitioner. The patient was hospitalized with postural hypotension. Condition has improved. Skin is still dry. The patient is on IV fluids. The patient has practically given up after the had . She has lost a lot of weight lately. She refuses any further workup. She seems to be depressed. Telemetry shows sinus rhythm with BBB type of pattern noted but the patient may have nonspecific intraventricular conduction delay, poor R wave progression. LABS: +1 bacteria in the urine otherwise negative. CK and Troponin is negative. Serum iron level 51, TIBC 282, Ferritin 171 all normal. Urine cultures are pending. Carotid scan no significant stenosis. Chest x-ray normal. PLAN: 1. Hydrate her. 2. Monitor telemetry. 3. Will do cardiac workup. 4. There is no focal neurological deficit. The patient was seen and examined with the nurse practitioner. TIME SPENT: More than 30 minutes. Plan and coordination of the patient's care discussed in the presence of nurse. VLAD
== END 2019-03-21 11:53 | disposition home or self-care (01) | DRG 312 ==
LOC: ED 18:50 → MEDSURG B 20:07
PROVIDERS: ADMIT Internal Medicine; ATTEND Internal Medicine
DX: D64.9 Anemia, unspecified; I10 Essential (primary) hypertension; E78.5 Hyperlipidemia, unspecified; M19.90 Unspecified osteoarthritis, unspecified site; I95.1 Orthostatic hypotension; F32.9 Major depressive disorder, single episode, unspecified; R79.89 Other specified abnormal findings of blood chemistry; E11.9 Type 2 diabetes mellitus without complications; E86.0 Dehydration; N39.0 Urinary tract infection, site not specified; R55 Syncope and collapse; N18.9 Chronic kidney disease, unspecified; K21.9 Gastro-esophageal reflux disease without esophagitis

== ENCOUNTER 2019-09-20 11:53 | Inpatient (IN) ==
--- NOTE | 2019-09-20 12:28 | ED.PDOC ---
General ED Provider: Dr. KYLAH PAZ Chief Complaint: Weakness Stated Complaint: Weakness Time Seen by Physician: 12:15 Mode of Arrival: Wheelchair Information Source: Patient Primary Care Provider: KYLER DAVIS Referred to ED by: PCP Does patient meet sepsis criteria?: No System Inflammatory Response Syndrome: Not Applicable Sepsis Protocol: For patient's 13 years and over: Temp is 96.8 and below OR 101 and greater Pulse >90 BPM Resp >20/minute Acutely Altered Mental Status Are patient's symptoms suggestive of a new infection, such as: -Pneumonia -Skin, Soft Tissue -Endocarditis -UTI -Bone, Joint Infection -Implantable Device -Acute Abdominal Infection -Wound Infection -Meningitis -Blood Stream Catheter Infection -Unknown PFSH Medical History (Updated 08/04/19 @ 15:18 by ROSALINA LÓPEZ RN) Anxiety Arthritis CVA (cerebral vascular accident) Gastro-esophageal reflux H/O: hysterectomy Hypertension Kidney stones Family History (Updated 08/04/19 @ 15:19 by ROSALINA LÓPEZ, RN) Mother Cancer of breast FATHER Myocardial infarction Mother Stroke Social History Smoking and tobacco status: Never smoker Substance use type: does not use History of recent travel: No Female Reproductive History Menstrual Hx Hysterectomy: Yes Hx Tubal Ligation: No Course Course Vital Signs: Temp Pulse Resp BP Pulse Ox 09/20/19 11:54 98.8 F 80 14 131/80 98 Discharge Plan Discharge Prescriptions: No Action montelukast [Singulair] 10 MG tablet 10 mg PO BEDTIME RF: 0 amlodipine 5 MG tablet 5 mg PO BEDTIME RF: 0 Protonix [address] for susp in packet 40 mg PO BEDTIME RF: 0 escitalopram oxalate 10 MG tablet 20 mg PO BEDTIME RF: 0 clopidogrel [Plavix] 75 MG tablet 75 mg PO BEDTIME RF: 0 hydrocodone-acetaminophen 1 EACH tablet 10 - 325 tab PO BID RF: 0 losartan-hydrochlorothiazide [Hyzaar] 50-12.5 mg Tablet 1 tab PO DAILY Qty: 30 RF: 0 chlordiazepoxide-clidinium [Librax (with clidinium)] 5-2.5 mg Capsule 1 cap PO BID RF: 0 ED Provider: KYLAH PAZ
--- NOTE | 2019-09-20 12:57 | ED.PDOC ---
General ED Provider: Dr. KYLAH PAZ Chief Complaint: Weakness Stated Complaint: Stated very weak, difficulty walking and just feel terrible. Sent to ER by PCP for evaluation Time Seen by Physician: 12:10 Mode of Arrival: Wheelchair Information Source: Patient and Family Exam Limitations: No limitations Primary Care Provider: KYLER DAVIS Referred to ED by: PCP Nursing and Triage Documentation Reviewed and Agree: Yes Does patient meet sepsis criteria?: No System Inflammatory Response Syndrome: Not Applicable Sepsis Protocol: For patient's 13 years and over: Temp is 96.8 and below OR 101 and greater Pulse >90 BPM Resp >20/minute Acutely Altered Mental Status Are patient's symptoms suggestive of a new infection, such as: -Pneumonia -Skin, Soft Tissue -Endocarditis -UTI -Bone, Joint Infection -Implantable Device -Acute Abdominal Infection -Wound Infection -Meningitis -Blood Stream Catheter Infection -Unknown Miscellaneous Complaint Exam Complex/Multi-System Complaint/Exam Onset/Duration: For several weeks Symptoms Are: Still present Episodes Lasting: Hours Initial Severity: Moderate Current Severity: Moderate Location of Pain: Generalized joint pain Pain Radiates to: across back Character: aching Aggravating: movement Alleviating: rest Associated Signs and Symptoms: Reports Weakness; Denies Decreased responsiveness, Confusion, Agitation, Dizziness, Syncope, Headache, Short of air, Cough, Wheezing, Hemoptysis, Chest pain, Palpitations, Edema, Nausea, Vomiting, Diarrhea, Abdominal pain, Back pain, Dysuria, Hematemesis, Melena, Decreased oral intake, Fever, Diaphoresis, Immunocompromised, Anticoagulation Therapy, Recent medication changes, Indwelling medical orderly, Prior MRSA, Prior VRE, Recent trauma and Remote trauma Recent Echo/LV Function: No Respiratory Distress: None JVD Present: No Tachypnea Present: No Stridor Present: No Abdominal Findings: Present Normal findings Meningeal Signs Positive: No Focal Weakness: Present RUE Focal Sensory Loss: Present None Gait: Unsteady Gag Reflex Present: No Babinski Sign: Negative Right and Negative Left Skin Findings: Present Normal findings Joint Swelling Present: No In-Dwelling Device Present: No Rectal Exam: Present Normal findings Differential Diagnosis: UTI and Other Review of Systems Review Of Systems Constitutional: Reports No symptoms Eyes: Reports No symptoms Ears, Nose, Mouth, Throat: Reports No symptoms Respiratory: Reports No symptoms Cardiac: Reports No symptoms GI: Reports No symptoms : Reports No symptoms Musculoskeletal: Reports No symptoms Skin: Reports No symptoms Neurological: Reports No symptoms Endocrine: Reports No symptoms Hematologic/Lymphatic: Reports No symptoms All Other Systems: Reviewed and Negative [facility] Medical History (Updated 09/20/19 @ 13:48 by KYLAH PAZ DO) Anxiety Arthritis CVA (cerebral vascular accident) Gastro-esophageal reflux H/O: hysterectomy Hypertension Kidney stones Family History (Updated 08/04/19 @ 15:19 by ROSALINA LÓPEZ, JACKI) Mother Cancer of breast FATHER Myocardial infarction Mother Stroke Social History Smoking and tobacco status: Never smoker Substance use type: does not use History of recent travel: No Female Reproductive History Menstrual Hx Hysterectomy: Yes Hx Tubal Ligation: No Physical Exam Physical Exam Appearance: Reports Ill-appearing and No pain distress Ill-appearing: Mild Pain Distress: None Eyes: Reports GUILLAUME, EOMI, Conjunctiva clear and Conjunctiva pale ENT: Reports Ears normal, Nose normal and Oropharynx normal Neck: Supple Respiratory: Reports Airway patent and Breath sounds equal Cardiovascular: Reports RRR GI/: Reports Soft, Nontender and No masses Musculoskeletal: Reports Normal strength, ROM intact, No edema and No calf tenderness Skin: Reports Warm Neurological: Reports Sensation intact, Motor intact, Reflexes intact, Cranial nerves intact, Alert and Oriented Psychiatric: Reports Anxious Physician Notification Case Discussed Physician Notified: Dr Davis([place]) -ok with admit Time of Notification: 13:45 Admit To: Inpatient Critical Care Note Critical Care Note Total Time (mins): 60 Course Course Hematology/Chemistry: 09/20/19 12:40 09/20/19 12:40 Orders, Labs, Meds: Lab Review 09/20/19 09/20/19 09/20/19 12:40 12:40 12:45 WBC 5.44 RBC 3.66 L Hgb 10.8 L Hct 33.0 L MCV 90.2 MCH 29.5 MCHC 32.7 RDW Coeff of Destiny 13.2 Plt Count 249 Immature Gran % (Auto) 0.4 Neut % (Auto) 45.3 Lymph % (Auto) 42.1 [place] % (Auto) 7.9 Eos % (Auto) 3.7 Baso % (Auto) 0.6 Neut # (Auto) 2.5 Lymph # (Auto) 2.3 [place] # (Auto) 0.4 Eos # (Auto) 0.2 Baso # (Auto) 0.0 Immature Gran # (Auto) 0.0 Sodium 137.7 Potassium 3.85 Chloride 101.2 Carbon Dioxide 26.8 Anion Gap 13.55 BUN 38.6 H Creatinine 1.63 H Estimated GFR (MDRD) 30.00 BUN/Creatinine Ratio 23.68 Glucose 144.5 H Calcium 10.02 Magnesium 1.46 L Total Bilirubin 0.29 AST 33.3 ALT 12.1 Alkaline Phosphatase 46.0 L Troponin I 0.019 Total Protein 7.33 Albumin 4.18 Globulin 3.15 Albumin/Globulin Ratio 1.32 Urine Color Urine Clarity Urine pH Ur Specific [place] Urine Protein Urine Glucose (UA) Urine Ketones Urine Blood Urine Nitrite Urine Bilirubin Urine Urobilinogen Ur Leukocyte Esterase Urine Opiates Screen Ur Oxycodone Screen Urine Methadone Screen Ur Propoxyphene Screen Ur Barbiturates Screen U Tricyclic Antidepress Ur Phencyclidine Scrn Ur Amphetamine Screen U Methamphetamines Scrn U Benzodiazepines Scrn Urine Cocaine Screen U Cannabinoids Screen Influ A Molecular Assay Negative by naat Influ B Molecular Assay Negative by naat 09/20/19 09/20/19 12:52 12:52 WBC RBC Hgb Hct MCV MCH MCHC RDW Coeff of Destiny Plt Count Immature Gran % (Auto) Neut % (Auto) Lymph % (Auto) [place] % (Auto) Eos % (Auto) Baso % (Auto) Neut # (Auto) Lymph # (Auto) [place] # (Auto) Eos # (Auto) Baso # (Auto) Immature Gran # (Auto) Sodium Potassium Chloride Carbon Dioxide Anion Gap BUN Creatinine Estimated GFR (MDRD) BUN/Creatinine Ratio Glucose Calcium Magnesium Total Bilirubin AST ALT Alkaline Phosphatase Troponin I Total Protein Albumin Globulin Albumin/Globulin Ratio Urine Color Yellow Urine Clarity Clear Urine pH 5.0 Ur Specific [place] 1.020 Urine Protein Negative Urine Glucose (UA) Negative Urine Ketones Negative Urine Blood Negative Urine Nitrite Negative Urine Bilirubin Negative Urine Urobilinogen 0.2 Ur Leukocyte Esterase Negative Urine Opiates Screen Negative Ur Oxycodone Screen Negative Urine Methadone Screen Negative Ur Propoxyphene Screen Negative Ur Barbiturates Screen Negative U Tricyclic Antidepress Negative Ur Phencyclidine Scrn Negative Ur Amphetamine Screen Negative U Methamphetamines Scrn Negative U Benzodiazepines Scrn Positive H Urine Cocaine Screen Negative U Cannabinoids Screen Negative Influ A Molecular Assay Influ B Molecular Assay Orders Category Date Time Status EKG-(ED ONLY) Stat CARDIO 09/20/19 12:28 Completed IV [ED IV/MEDIPORT/POWERPORT] .ONCE EMERGENCY 09/20/19 13:43 Active CBC W/ AUTO DIFF Stat LAB 09/20/19 12:40 Completed CMP [COMPREHENSIVE METABOLIC PANEL] Stat LAB 09/20/19 12:40 Completed FLU A & B MOLECULAR [FLU A/B MOLECULAR] Stat LAB 09/19/19 12:50 Completed MAGNESIUM Stat LAB 09/20/19 12:40 Completed TROPONIN I Stat LAB 09/20/19 12:40 Completed UA [URINALYSIS C & S IF INDICATED] Stat LAB 09/19/19 12:50 Completed URINE DRUG SCREEN (RAPID FOR ED) [DRUG SCREEN, URINE, LAB 09/19/19 12:50 Completed RAPID] Stat 0.9 % Sodium Chloride [Saline Flush] MEDS 09/20/19 13:43 Active 1 syr IVF PRN PRN Ceftriaxone/D5w 1 gm Premix [Rocephin 1 gm/50 ml D5w] MEDS 09/20/19 13:43 Active 1 gm in 50 ml IV ONCE Methylprednisolone Sod Succ/Pf [Solu-Medrol 125 mg] MEDS 09/20/19 14:00 Ordered 125 mg IVP Q8HR Sodium Chloride 0.9% [Sodium Chloride] 1,000 ml MEDS 09/20/19 13:43 Active IV BOLUS CHEST, 1V AP ONLY Stat RADS 09/20/19 12:29 Completed Medications Generic Name Dose Route Start Last Admin Trade Name Freq PRN Reason Stop Dose Admin Sodium Chloride 1,000 mls @ 1,000 mls/hr 09/20/19 13:43 Sodium Chloride IV 09/20/19 14:42 BOLUS STA CEFTRIAXONE/D5W 1 GM PREMIX 1 gm in 50 mls @ 75 mls/hr 09/20/19 13:43 Rocephin 1 Gm/50 Ml D5w IV 09/20/19 14:22 ONCE STA Methylprednisolone Sodium Succinate 125 mg 09/20/19 14:00 Solu-Medrol 125 Mg IVP Q8HR BRYCE Sodium Chloride 1 syr 09/20/19 13:43 Saline Flush IVF PRN PRN To flush IV Vital Signs: Temp Pulse Resp BP Pulse Ox 09/20/19 11:54 98.8 F 80 14 131/80 98 Discharge Plan Discharge Patient Disposition: ADMITTED INPATIENT Discharge Problem: Pneumonia, Acute dehydration ED Provider: KYLAH PAZ Condition: Stable
--- NOTE | 2019-09-20 13:15 | DI ---
EXAM: Chest one view HISTORY: Weakness COMPARISON: 08/04/2019 TECHNIQUE: Single view of the chest was performed FINDINGS: Normal heart size. Normal mediastinal contour. Subtle ground-glass opacities in the right lung base. Remaining lungs are clear. No pleural effusion or pneumothorax. No acute abnormalities of the bones. IMPRESSION: Nonspecific subtle ground-glass opacities in the right lung base, which may represent at electasis/scar and/or developing pneumonia.
[2019-09-20] MEDS ORDERED: ROCEPHIN 1 GM/50 ML D5W 1 GM/50 ML BAG IV STA (13:43)
[2019-09-20] MEDS ORDERED: SODIUM CHLORIDE 1,000 ML IV STA (13:43)
[2019-09-20] MEDS ORDERED: SOLU-MEDROL 125 MG IVP SCH (14:00)
[2019-09-20] MEDS ORDERED: ZOFRAN 4 MG/2 ML IVP PRN (14:20)
[2019-09-20] MEDS ORDERED: NORCO 5-325 PO PRN (14:20)
[2019-09-20] MEDS ORDERED: LOVENOX SUBCUT SCH (14:30)
[2019-09-20 14:47] VITALS: BMI 27.5
[2019-09-20] MEDS: LOVENOX SUBCUT SCH (15:50)
[2019-09-20] MEDS: SODIUM CHLORIDE 1,000 ML IV SCH (15:50)
[2019-09-20] MEDS: PROTONIX PO SCH (17:01)
[2019-09-20] MEDS: PLAVIX PO SCH (20:13)
[2019-09-20] MEDS: NORCO 10-325 PO SCH (20:13)
[2019-09-20] MEDS: LIBRAX 5/2.5 MG PO SCH (20:13)
[2019-09-20] MEDS: SINGULAIR PO SCH (20:13)
[2019-09-20] MEDS: LEXAPRO PO SCH (20:13)
[2019-09-20] MEDS: NORVASC PO SCH (20:14)
[2019-09-20] MEDS ORDERED: NORCO 10-325 PO SCH (21:00)
[2019-09-20] MEDS ORDERED: NON-FORMULARY MEDICATION (Pantoprazole [Protonix] 40 MG) PO SCH (21:00)
[2019-09-20] MEDS: TYLENOL PO PRN (21:36)
[2019-09-21 05:36] LABS: HEMATOCRIT 33.2 % (37.0-47.0)
--- NOTE | 2019-09-21 07:48 | HP ---
DATE OF SERVICE: 09/20/19 HISTORY OF PRESENT ILLNESS: 88-year-old white female has presented to the emergency room with extreme weakness and fatigue. She is having some back pain and a slight cough. No fever. She is having difficulty walking. PAST MEDICAL HISTORY: History of recurrent UTI Anemia Diabetes Mellitus Type 2 CKD, Stage 2 to 3 Right shoulder bursitis History of L4 compression fracture Severe degenerative disk disease of the spine Bilateral sciatica Hypertension Dyslipidemia Depression GERD Polyarthritis History of CVA PAST SURGICAL HISTORY: Partial hysterectomy History of nephrolithiasis Kidney stone removal by Dr. Medina REVIEW OF SYSTEMS: CONSTITUTIONAL: Positive for generalized weakness and fatigue. No night sweats. No malaise, lethargy. No fever or chills. HEENT: Eyes: No visual changes. No eye pain. No eye discharge. ENT: No runny nose. No epistaxis. No sinus pain. No sore throat. No odynophagia. No ear pain. No congestion. RESPIRATORY: No cough, no congestion. No hemoptysis. No shortness of breath. CARDIOVASCULAR: No angina symptoms. No CHF symptoms. No atypical chest pain for CAD. No palpitations. No PND. No orthopnea. GASTROINTESTINAL: No abdominal pain. No nausea or vomiting. No diarrhea or constipation. No hematemesis. No hematochezia. GENITOURINARY: No urgency. No frequency. No dysuria. No hematuria. No obstructive symptoms. No discharge. No pain. No significant abnormal bleeding. MUSCULOSKELETAL: Positive for leg pain, back pain. NEUROLOGICAL: No headache. No neck pain. No syncope. No seizures. No dizziness. PSYCHIATRIC: Not anxious. No depression. No suicidal thoughts. No homicidal thoughts. SKIN: No rash. No lesions. No wounds. ENDOCRINE: No unexplained weight loss. No weight gain. HEMATOLOGIC/LYMPHATIC: No anemia. No purpura. No petechiae. No prolonged or excessive bleeding. No palpable lymph nodes. PERSONAL/FAMILY/SOCIAL HISTORY: She is . She currently lives by herself but has several daughters. She does go from their house to house. She is a nonsmoker. No alcohol or ilicit drug use. MEDICATIONS: Montelukast 10 mg p.o. bedtime Amlodipine 5 mg p.o. bedtime Pantoprazole 40 mg p.o. bedtime Hydrocodone-Acetaminophen 10-325 tab p.o. b.i.d. Escitalopram Oxalate 20 mg p.o. bedtime Clopidogrel 75 mg p.o. bedtime Losartan-Hydrochlorothiazide 50-12.5 mg one tab p.o. daily Chlordiazepoxide-Clidinium 5-2.5 mg one cap p.o. b.i.d. ALLERGIES: CODEINE, MORPHINE, SULFA (SULFONAMIDE ANTIBIOTICS) PHYSICAL EXAMINATION: VITAL SIGNS: Temperature 98.8, heart rate 80, respirations 14, blood pressure 131/80, pulse ox 98%. Alert and oriented. Pallor. HEENT: Head normocephalic, atraumatic. Eyes: Extraocular muscles are intact. Pupils are equal, round and reactive to light and accommodation. Ears: No lesions. Nose appeared normal. Throat: No exudate or erythema. Dry mucous membranes. NECK: Supple. No JVD, no carotid bruit. No lymphadenopathy or thyromegaly. LUNGS: Diminished breath sounds. Clear to auscultation. Percussion note normal. Chest symmetrical. HEART: S1, S2, no S3. No murmur. No cyanosis or clubbing. No ascites. Pulses: Dorsalis pedis and posterior tibial pulses +1 to +2 bilaterally. ABDOMEN: Soft. Nontender. Bowel sounds active. No CVA tenderness. No mass felt. EXTREMITIES: Trace leg edema. Full range of motion of all extremities, equal. NEUROLOGIC: No focal deficit. Cranial nerves II through XII are grossly intact. No headache, no double vision or headache. SKIN: Not dry. Intact. Turgor - normal. LYMPHATIC: No palpable lymph nodes/no lymphedema. MUSCULOSKELETAL: Normal joints with no swelling. Muscle tone is normal. Chest x-ray shows ground glass opacities in the right lung base which may represent developing pneumonia. White count 5.4, hemoglobin 10.8, hematocrit 33.0, platelets 249. Sodium 137, potassium 3.8, BUN 38.6, creatinine 1.63, glucose 144. Urine is negative. AST 33, ALT 12. ASSESSMENT: 1. ACUTE DEHYDRATION 2. HISTORY OF CHRONIC KIDNEY DISEASE, STAGE 3 3. PNEUMONIA, RIGHT LOWER LOBE 4. ANEMIA 5. DIABETES MELLITUS TYPE 2 6. HYPERTENSION 7. DYSLIPIDEMIA PLAN: 1. We will admit. 2. Routine telemetry orders. 3. No cardiac markers. 4. CBC, CMP daily. 5. Rocephin 1 gm IV daily. 6. Albuterol inhaler one to two puffs q.4hr p.r.n. 7. NS IV @ 75 cc's hr. 8. Regular diet. 9. Oxygen 1 to 2L as needed. 10. Fall precautions. 11. Continue home medications. 12. Will follow closely. TIME SPENT: More than 70 minutes. MTDD
[2019-09-21] MEDS ORDERED: VITAMIN B-12 IM STA (08:04)
--- NOTE | 2019-09-21 08:18 | PCM.PROG ---
Attending Provider: ATTENDING PROVIDER: Dr. KYLER DAVIS DATE OF SERVICE: 09/21/19 SUBJECTIVE: This 88 year old /WHITE F was hospitalized 09/20/19 with questionable pneumonia and likely dehydration with renal azotemia. Kidney function is better. No cough. No symptoms of pneumonia. REVIEW OF SYSTEMS: CONSTITUTIONAL: No night sweats. No fatigue, malaise, lethargy. No fever or chills. HEENT: Eyes: No visual changes. No eye pain. No eye discharge. ENT: No runny nose. No epistaxis. No sinus pain. No odynophagia. No congestion. RESPIRATORY: No cough, no congestion. No hemoptysis. No shortness of breath. CARDIOVASCULAR: No angina symptoms. No CHF symptoms. No atypical chest pain for CAD. No palpitations. No orthopnea.. GASTROINTESTINAL: No abdominal pain. No nausea or vomiting. No diarrhea or constipation. No hematemesis. No hematochezia. GENITOURINARY: No urgency. No frequency. No dysuria. No hematuria. No obstructive symptoms. No discharge. No pain. No significant abnormal bleeding. MUSCULOSKELETAL: No musculoskeletal pain; no joint swelling. NEUROLOGICAL: Awake, alert, oriented to time, place and person. No headache. No neck pain. No syncope. No seizures. No dizziness. PSYCHIATRIC: Not anxious. No depression. No suicidal thoughts. No homicidal thoughts. SKIN: No rash. No lesions. No wounds. ENDOCRINE: No unexplained weight loss. No weight gain. HEMATOLOGIC/LYMPHATIC: No anemia. No purpura. No petechiae. No prolonged or excessive bleeding. No palpable lymph nodes. PHYSICAL EXAMINATION: GENERAL: The patient is awake, alert and oriented to time, place and person. VITAL SIGNS: Temperature 97.4 F, Pulse 60, Respiratory Rate 16, BP 116/67, Pulse Ox 98% HEENT: Head normocephalic, atraumatic. Eyes: Extraocular muscles are intact. Pupils are equal, round and reactive to light and accommodation. Ears: No lesions. Nose appeared normal. Throat: No exudate or erythema. NECK: Supple. No JVD, no carotid bruit. No lymphadenopathy or thyromegaly. LUNGS:Decreased breath sounds. Clear to auscultation. Percussion note normal. Chest symmetrical. HEART: S1, S2, no S3. No murmurs. No cyanosis or clubbing. No ascites. Pulses: Dorsalis pedis and posterior tibial pulses +1 to +2 both sides. ABDOMEN: Soft. Non-tender. Bowel sounds active. No CVA tenderness. No mass felt. EXTREMITIES: No edema. Full range of motion of all extremities, equal. NEUROLOGIC: No focal deficit. Cranial nerves II through XII are grossly intact. No headache, no double vision or headache. SKIN: Warm and dry. Intact. Turgor-normal. LYMPHATIC: No palpable lymph nodes/no lymphedema. MUSCULOSKELETAL: Normal joints with no swelling. Muscle tone is normal. LAB REVIEW: 09/21/19 05:18 09/21/19 05:18 09/21/19 05:18: Sodium 136.6, Potassium 4.32, Chloride 101.7, Carbon Dioxide 24.6, Anion Gap 14.62, BUN 32.5 H, Creatinine 1.27, Estimated GFR (MDRD) 40.00, BUN/Creatinine Ratio 25.59, Glucose 174.2 H, Calcium 9.50, Total Bilirubin 0.26, AST 25.6, ALT 14.5, Alkaline Phosphatase 43.9 L, Total Protein 7.21, Albumin 4.16, Globulin 3.05, Albumin/Globulin Ratio 1.36 09/21/19 05:18: WBC 4.04 L, RBC 3.66 L, Hgb 10.7 L, Hct 33.2 L, MCV 90.7, MCH 29.2, MCHC 32.2, RDW Coeff of Destiny 13.1, Plt Count 265, Immature Gran % (Auto) 0.5, Neut % (Auto) 63.9, Lymph % (Auto) 33.9, [place] % (Auto) 1.5, Eos % (Auto) 0.0, Baso % (Auto) 0.2, Neut # (Auto) 2.6, Lymph # (Auto) 1.4, [place] # (Auto) 0.1 L, Eos # (Auto) 0.0, Baso # (Auto) 0.0, Immature Gran # (Auto) 0.0 09/20/19 12:52: Urine Opiates Screen Negative, Ur Oxycodone Screen Negative, Urine Methadone Screen Negative, Ur Propoxyphene Screen Negative, Ur Barbiturates Screen Negative, U Tricyclic Antidepress Negative, Ur Phencyclidine Scrn Negative, Ur Amphetamine Screen Negative, U Methamphetamines Scrn Negative, U Benzodiazepines Scrn Positive H, Urine Cocaine Screen Negative, U Cannabinoids Screen Negative 09/20/19 12:52: Urine Color Yellow, Urine Clarity Clear, Urine pH 5.0, Ur Specific [place] 1.020, Urine Protein Negative, Urine Glucose (UA) Negative, Urine Ketones Negative, Urine Blood Negative, Urine Nitrite Negative, Urine Bilirubin Negative, Urine Urobilinogen 0.2, Ur Leukocyte Esterase Negative 09/20/19 12:45: Influ A Molecular Assay Negative by naat, Influ B Molecular Assay Negative by naat 09/20/19 12:40: Sodium 137.7, Potassium 3.85, Chloride 101.2, Carbon Dioxide 26.8, Anion Gap 13.55, BUN 38.6 H, Creatinine 1.63 H, Estimated GFR (MDRD) 30.00, BUN/Creatinine Ratio 23.68, Glucose 144.5 H, Calcium 10.02, Magnesium 1.46 L, Total Bilirubin 0.29, AST 33.3, ALT 12.1, Alkaline Phosphatase 46.0 L, Troponin I 0.019, Total Protein 7.33, Albumin 4.18, Globulin 3.15, Albumin/Globulin Ratio 1.32 09/20/19 12:40: WBC 5.44, RBC 3.66 L, Hgb 10.8 L, Hct 33.0 L, MCV 90.2, MCH 29.5, MCHC 32.7, RDW Coeff of Destiny 13.2, Plt Count 249, Immature Gran % (Auto) 0.4, Neut % (Auto) 45.3, Lymph % (Auto) 42.1, [place] % (Auto) 7.9, Eos % (Auto) 3.7, Baso % (Auto) 0.6, Neut # (Auto) 2.5, Lymph # (Auto) 2.3, [place] # (Auto) 0.4 , Eos # (Auto) 0.2, Baso # (Auto) 0.0, Immature Gran # (Auto) 0.0 ASSESSMENT: Please see below. 1. Renal Azotemia with dehydration 2. Possibility of pneumonia PLAN: 1. Continue IV fluids and antibiotics 2. The patient was encouraged to get up and walk. 3. Physical therapy 4. Will give cc of B12 5. Will hold Hyzaar for now Plan and coordination of the patient's care discussed in the presence of Non Categorical Preschool Teacher and nurse. SCRIBED BY: TSERING RANDOLPH Bending Frame Operator scribed while in presence of service performed by Dr. KYLER DAVIS on 09/21/19 (2029)
[2019-09-21] MEDS ORDERED: DECADRON 4 MG/ML SDV IM SCH (09:00)
[2019-09-21] MEDS ORDERED: HYZAAR 50-12.5 MG TAB PO SCH (09:00)
[2019-09-21] MEDS: SODIUM CHLORIDE 1,000 ML IV SCH ×2 (09:08→23:24)
[2019-09-21] MEDS: ROCEPHIN 1 GM/50 ML D5W 1 GM/50 ML BAG IV SCH (09:09)
[2019-09-21] MEDS: LIBRAX 5/2.5 MG PO SCH ×2 (09:13→20:46)
[2019-09-21] MEDS: NORCO 10-325 PO SCH ×2 (09:13→20:45)
[2019-09-21] MEDS: LOVENOX SUBCUT SCH (09:17)
--- NOTE | 2019-09-21 11:08 | RS.PTINEVL ---
Subjective - Patient information Date of Evaluation: 09/21/19 Date of Arrival on Unit: 09/20/19 Admitted From:: Home Diagnosis: acute dehydration, CKD stage 3, pneumonia Usual Living Arrangement: granddaughter lives with her Home Environment: House Medical History: Hypertension, CVA/TIA, Diabetes, Arthritis Medical History Comments:: GERD, DDD, L4 compression fx, anemia, CKD LATEX ALLERGY?: No Surgical History: Hysterectomy Surgical History Comments:: kidney stone removed Medications: see chart Subjective Information/ Patient Comments:: pt states that she is "so weak". pt reports that she has been getting weaker. - Level of function Prior to this admission, the patient could do the following:: Independent Selfcare, Independent ADL's, Independent Ambulation, Perform Training Executive/Cooking, Participated in Social Activities Outside home (attends congregational every Thursday) Current Level of Function: Partially Dependent Current Equipment Used at Home: walker, shower chair, bedside commode Interventions - Objective Patient Orientation: Person, Place, Time Current Interventions: IV's, Telemetry Observation: pt with increased thoracic kyphosis, rounded shlds. Range of Motion - ROM Right Upper Extremity AROM: WFL's Left Upper Extremity AROM: WFL's Right Lower Extremity AROM: WFL's Left Lower Extremity AROM: WFL's Muscle Strength - Muscle Strength Right Upper Extremity Strength: Mild Weakness (grossly 4-/5) Left Upper Extremity Strength: Mild Weakness (grossly 4-/5) Right Lower Extremity Strength: Mild Weakness (hip flex 4-/5, knee flex 4/5, ext 4-/5, ankle DF/PF 4/5) Left Lower Extremity Strength: Mild Weakness (hip flex 4-/5, knee flex 4/5, ext 4-/5, ankle DF/PF 4/5) Sensation - Sensation Right Upper Extremity Sensation: Intact/Normal Left Upper Extremity Sensation: Intact/Normal Right Lower Extremity Sensation: Intact/Normal Left Lower Extremity Sensation: Intact/Normal Palpation Palpation Findings: None/Normal Balance - Sitting Balance and Reactions Static Sitting Balance: Good Dynamic Sitting Balance: Fair - Standing Balance and Reactions Static Standing Balance: Poor Dynamic Standing Balance: Poor Standing Equilibrium Reactions: Delayed Left, Delayed Right Standing Protective Reactions: Delayed Left, Delayed Right Functional Mobility - Bed Mobility Comments:: pt seen sitting up in chair. - Transfers Sit to Stand: Supervision Stand to Sit: Supervision - Safety Awareness Safety Awareness: Fair DORI INDEX SCORE: n/a Ambulation - Ambulation Assistive Device Used: Small Base Quad Cane Orthotic/Prosthetic Device: No Distance: 140 Assistance needed with Ambulation: Min Assist Gait Deviations: Shuffling gait, Forward posture, Short stride, Deviates from path Ambulation Comments: pt amb with quad cane, however drags quad cane at her side, recommend use of rwx for safety. Factors Affecting Ambulation: WB Status, Decreased Balance, Weakness, Decreased Safety, Limited Endurance Treatment time - Time with patient Length of Evaluation: 19 Total treatment time: 28 Patient Education - Education Patient Education: Activity Modification, Education of Plan of Care Teaching Recipient: Patient Teaching Methods: Discussion, Demonstration Comments: discussion regarding POC as well as safety with gait. Assessment - Assessment Problem List:: Decreased level of function, Requires training/education, Decreased safety/Risk of falls, Weakness Rehab Potential: Good Further Therapy Indicated?: Yes Candidate for Swing Bed for Therapy Services?: Feel pt may not be a candidate for swing bed due to higher functional level. Evaluation Complexity: HISTORY: Medium, EXAM OF BODY SYSTEMS: Medium, CLINICAL PRESENTATION: Medium, CLINICAL DECISION MAKING: Medium Patient's Goal(s): pt goal is to be able to walk and take care of herself. Short Term Goals GOAL #1: pt independent with rolling and scooting in bed Goal to be met by: 09/23/19 GOAL #2: sup to/from sit SBA Goal to be met by: 09/23/19 GOAL #3: pt transfer sit to/from stand SBA to independent Goal to be met by: 09/23/19 GOAL #4: pt amb with AAD 150ft with CGA with no LOB Goal to be met by: 09/23/19 Penitentiary Goals GOAL #1: transfer sup to/from sit to/from stand independently Goal to be met by: 09/25/19 GOAL #2: pt amb functional household distances with AAD independently Goal to be met by: 09/25/19 GOAL #3: pt ascend/descend 2 steps with HR CGA Goal to be met by: 09/25/19 Plan Plan of Care: Therapeutic EX, Therapeutic Activity Other:: gait training Frequency of Treatment: 1-2 X day, as tolerated Duration of Treatment: 5 days Anticipated Discharge Destination: Home Treatment Diagnosis (ICD 10 Codes): difficulty walking R 26.2. balance impaired R 26.81. weakness M 62.81 Has the Physician been added for Co-signature?: Yes
--- NOTE | 2019-09-21 13:24 | RS.OTINEVL ---
Subjective - Patient information Date of Evaluation: 11/25/18 Date of Arrival on Unit: 09/20/19 Admitted From:: Home Diagnosis: Anemia, Weakness PRECAUTIONS: Risk for falls Usual Living Arrangement: granddaughter lives with her Living Arrangement Comments: 3 years ago, lives with granddaughter Home Environment: Mobile Home, Stairs (few) Medical History: Hypertension, CVA/TIA, Diabetes, Arthritis Medical History Comments:: GERD, DDD, L4 compression fx, anemia, CKD LATEX ALLERGY?: No Surgical History: Hysterectomy Surgical History Comments:: kidney stone removed Medications: see chart Subjective Information/ Patient Comments:: "Hi baby, I can't do any kind of therapy right now." "Baby, I am so weak." "That shoulder hurts me." "I'll do whatever you need." - Level of function Prior to this admission, the patient could do the following:: Independent Selfcare, Independent ADL's, Independent Ambulation, Perform Cook Railroad/Cooking, Participated in Social Activities Outside home (attends druze every Thursday) Abilities prior to this admission: Pt reports she is independent with bathing herself in the bathtub. Pt is independent with her dressing. Pt is not always safe with ambulation. Pt uses a RW and a quad cane for ambulation at home. Pt reports her grandaughter does most of the cooking. Pt is weak and is not steady with functional transfers. Current Level of Function: Partially Dependent Current Equipment Used at Home: walker, shower chair, bedside commode Pain Assessment - Pain Pain Score: 3 Pain Location Body Site: Shoulder Pain Aggravating Factors: ADL's, Exercise/Activity Interventions - Objective Patient Orientation: Person, Place, Situation Current Interventions: IV's, Telemetry Observation: Pt is CGA for sit to stand. Pt is weak and not steady for functional transfers. Pt has limited BUE shoulder AROM. Pt reports pain in the RUE posterior scapula and subscapularis when she moves her right arm. Interventions - ROM Right Upper Extremity AROM: Moderate limitation Left Upper Extremity AROM: Slight limitation - Strength Right Upper Extremity Strength: Mild Weakness Left Upper Extremity Strength: Mild Weakness - Sensation Right Upper Extremity Sensation: Intact/Normal Left Upper Extremity Sensation: Intact/Normal Balance - Sitting Balance Static Sitting Balance: Good Dynamic Sitting Balance: Good - Standing Balance Static Standing Balance: Fair ADL Skills - Self Feeding Self Feeding: Independent - Bathing Bathing UE: Independent Bathing LE: Independent - Dressing Dressing UE: CGA Dressing LE: Independent - Toilet Management Toileting Management: Independent Functional Mobility - Bed Mobility Rolling R/L: Independent Scooting: Independent Supine to Sit: Independent - Transfers Sit to Stand: [facility] Stand to Sit: [facility] Stand Pivot Transfers: CGA - Ambulation Weight Bearing Status: FWB Assistive Device Used: Large Base Quad Cane Assistance needed with Ambulation: CGA - Safety Awareness Safety Awareness: Fair DORI INDEX SCORE: . Additional Treatment Performed - Time with patient Length of Evaluation: 22 Total treatment time: 22 Activities Do you enjoy playing games?: Yes Would you be interested in leaving your room for activities?: Yes Would you enjoy group activities?: Yes Do you have difficulty with your vision?: Yes What types of things do you enjoy doing? Any Hobbies?: Jarquin are her hobby. Patient Interests:: Watching Television, Visiting/Socializing Patient Education Patient Education: Education of diagnosis, Education of Plan of Care Teaching Recipient: Patient Teaching Methods: Discussion Assessment Problem List:: Decreased level of function, Decreased safety/Risk of falls, Weakness, Pain limits previous level of function (RUE shoulder pain limits her ability to antoni her shirt.) Rehab Potential: Fair Further Therapy Indicated?: Yes Evaluation Complexity: HISTORY: Medium, EXAM OF BODY SYSTEMS: Medium, CLINICAL DECISION MAKING: Medium Patient's Goal(s): To be able to go home. Short Term Goals - Goals GOAL 1: Pt will be safe with ADLs with equipment PRN. Goal to be met by: 09/26/19 GOAL 2: Pt RUE pain decreases to 0-2/10. Goal to be met by: 09/26/19 GOAL 3: Pt will increase functional balance to fair. Goal to be met by: 09/26/19 GOAL 4: Pt to have full AROM of the RUE. Goal to be met by: 09/26/19 Longterm Goals GOAL 1: Pt will be Modified Independent and safe with ADLs. Goal to be met by: 09/29/19 GOAL 2: Pt to be able to use RUE in all planes with pain 0-2/10. Goal to be met by: 09/29/19 GOAL 3: Pt to increase standing balance to Fair+ Goal to be met by: 07/09/20 Plan Plan of Care: Therapeutic EX, Neuromuscular Re-Educ, Therapeutic Activity, Self- Care/Home Management Frequency of Treatment: 1-2 X day, as tolerated Duration of Treatment: 1 Week Anticipated Discharge Destination: Home Treatment Diagnosis (ICD 10 Codes): M25.511 Right shoulder pain, M62.81 Muscle weakness, M25.61 Shoulder stiffness, Has the Physician been added for Co-signature?: Yes
[2019-09-21] MEDS: PROTONIX PO SCH (16:54)
[2019-09-21] MEDS: SINGULAIR PO SCH (20:45)
[2019-09-21] MEDS: PLAVIX PO SCH (20:45)
[2019-09-21] MEDS: LEXAPRO PO SCH (20:46)
[2019-09-21] MEDS: NORVASC PO SCH (20:46)
[2019-09-22 05:42] LABS: HEMATOCRIT 29.3 % (37.0-47.0)
--- NOTE | 2019-09-22 08:43 | PCM.PROG ---
Attending Provider: ATTENDING PROVIDER: Dr. KYLER DAVIS This patient is seen with Maya Garcia, Nurse Practitioner. DATE OF SERVICE: 09/22/19 SUBJECTIVE: This 88 year old /WHITE F was hospitalized 09/20/19. The patient is resting comfortably. She is anxious and depressed. She feels that she is having anxiety attacks accompanied with depression at home grieving the loss of and inability to get out. REVIEW OF SYSTEMS: CONSTITUTIONAL: No night sweats. No fatigue, malaise, lethargy. No fever or chills. HEENT: Eyes: No visual changes. No eye pain. No eye discharge. ENT: No runny nose. No epistaxis. No sinus pain. No odynophagia. No congestion. RESPIRATORY: No cough, no congestion. No hemoptysis. No shortness of breath. CARDIOVASCULAR: No angina symptoms. No CHF symptoms. No atypical chest pain for CAD. No palpitations. No orthopnea.. GASTROINTESTINAL: No abdominal pain. No nausea or vomiting. No diarrhea or constipation. No hematemesis. No hematochezia. GENITOURINARY: No urgency. No frequency. No dysuria. No hematuria. No obstructive symptoms. No discharge. No pain. No significant abnormal bleeding. MUSCULOSKELETAL: No musculoskeletal pain; no joint swelling. NEUROLOGICAL: Awake, alert, oriented to time, place and person. No headache. No neck pain. No syncope. No seizures. No dizziness. PSYCHIATRIC: Not anxious. No depression. No suicidal thoughts. No homicidal thoughts. SKIN: No rash. No lesions. No wounds. ENDOCRINE: No unexplained weight loss. No weight gain. HEMATOLOGIC/LYMPHATIC: No anemia. No purpura. No petechiae. No prolonged or excessive bleeding. No palpable lymph nodes. PHYSICAL EXAMINATION: GENERAL: The patient is awake, alert and oriented, lying/sitting in bed in no distress. VITAL SIGNS: Temperature 98.4 F, Pulse 65, Respiratory Rate 18, BP 115/68, Pulse Ox 95% HEENT: Head normocephalic, atraumatic. Eyes: Extraocular muscles are intact. Pupils are equal, round and reactive to light and accommodation. Ears: No lesions. Nose appeared normal. Throat: No exudate or erythema. NECK: Supple. No JVD, no carotid bruit. No lymphadenopathy or thyromegaly. LUNGS: Diminished breath sounds. Clear to auscultation. Percussion note normal. Chest symmetrical. HEART: S1, S2, no S3. No murmurs. No cyanosis or clubbing. No ascites. Pulses: Dorsalis pedis and posterior tibial pulses +1 to +2 both sides. ABDOMEN: Soft. Non-tender. Bowel sounds active. No CVA tenderness. No mass felt. EXTREMITIES: No edema. Full range of motion of all extremities, equal. NEUROLOGIC: No focal deficit. Cranial nerves II through XII are grossly intact. No headache, no double vision or headache. SKIN: Not dry. Intact. Turgor-normal. LYMPHATIC: No palpable lymph nodes/no lymphedema. MUSCULOSKELETAL: Normal joints with no swelling. Muscle tone is normal. LAB REVIEW: 09/22/19 05:10 09/22/19 05:10 09/22/19 05:10: Sodium 139.9, Potassium 3.80, Chloride 106.0, Carbon Dioxide 27.2, Anion Gap 10.50, BUN 29.9 H, Creatinine 1.14, Estimated GFR (MDRD) 45.00, BUN/Creatinine Ratio 26.22, Glucose 127.4 H, Calcium 9.23, Total Bilirubin < 0.10 L, AST 27.7, ALT 13.2, Alkaline Phosphatase 49.8 L, Total Protein 6.35, Albumin 3.59, Globulin 2.76, Albumin/Globulin Ratio 1.30 09/22/19 05:10: WBC 7.31, RBC 3.23 L, Hgb 9.5 L, Hct 29.3 L, MCV 90.7, MCH 29.4, MCHC 32.4, RDW Coeff of Destiny 13.2, Plt Count 249, Immature Gran % (Auto) 0.7, Neut % (Auto) 69.1, Lymph % (Auto) 22.4, [place] % (Auto) 7.5, Eos % (Auto) 0.0, Baso % (Auto) 0.3, Neut # (Auto) 5.1, Lymph # (Auto) 1.6, [place] # (Auto) 0.6, Eos # (Auto) 0.0, Baso # (Auto) 0.0, Immature Gran # (Auto) 0.1 ASSESSMENT: Please see below. 1. Renal Azotemia with dehydration 2. Possibility of pneumonia 3. Depression with anxiety PLAN: 1. D/C IV fluids. 2. Start Wellbutrin 100 mg extended release. 3. Will discuss with the patient about [facility]. Plan and coordination of the patient's care discussed in the presence of University Services Program Associate and nurse. CONDITION: Stable SCRIBED BY: MECHE SWENSON Radio Officer scribed while in presence of service performed by Dr. Davis/Maya Garcia APRN on 09/22/19 (0801)
[2019-09-22] MEDS: ROCEPHIN 1 GM/50 ML D5W 1 GM/50 ML BAG IV SCH (08:48)
[2019-09-22] MEDS: NORCO 10-325 PO SCH ×2 (08:48→20:19)
[2019-09-22] MEDS: LOVENOX SUBCUT SCH (08:49)
[2019-09-22] MEDS: WELLBUTRIN XL PO SCH (08:49)
[2019-09-22] MEDS: PREDNISONE PO SCH (08:49)
[2019-09-22] MEDS: LIBRAX 5/2.5 MG PO SCH ×2 (08:49→20:19)
[2019-09-22] MEDS: SODIUM CHLORIDE 1,000 ML IV SCH (09:21)
--- NOTE | 2019-09-22 11:30 | PN ---
DATE OF SERVICE: 09/22/19 SUBJECTIVE: The patient was seen and examined this morning with nurse practitioner. The patient will be started on Wellbutrin 150 mg daily along with Lexapro. The patient otherwise overall medical conditions are improving. The renal azotemia is resolving. Creatinine and BUN much better. She is advised to eat regulrly, drink a lot of fluids. CONDITION: Stable. TIME SPENT: More than 30 minutes. Plan and coordination of the patient's care discussed in the presence of nurse. VLAD
[2019-09-22] MEDS: PROTONIX PO SCH (16:34)
[2019-09-22] MEDS: TYLENOL PO PRN (18:03)
[2019-09-22] MEDS: LEXAPRO PO SCH (20:19)
[2019-09-22] MEDS: NORVASC PO SCH (20:19)
[2019-09-22] MEDS: SINGULAIR PO SCH (20:20)
[2019-09-22] MEDS: PLAVIX PO SCH (20:20)
[2019-09-23 06:07] VITALS: BP 127/75; TEMP 97.9
[2019-09-23] MEDS: ROCEPHIN 1 GM/50 ML D5W 1 GM/50 ML BAG IV SCH (09:48)
[2019-09-23] MEDS: PREDNISONE PO SCH (09:48)
[2019-09-23] MEDS: LIBRAX 5/2.5 MG PO SCH (09:48)
[2019-09-23] MEDS: LOVENOX SUBCUT SCH (09:49)
[2019-09-23] MEDS: NORCO 10-325 PO SCH (09:49)
[2019-09-23] MEDS: WELLBUTRIN XL PO SCH (09:49)
--- NOTE | 2019-09-23 13:45 | OTDC ---
Date of Evaluation:09/20/19 Diagnosis:[Pneumonia] Number of visits:[4] Last Date of Service:[09/22/19] Reason For Discharge:[Discharged from hospital] Discharge Summary:[Pt discharged with a shower chair and she has the other equipment at home.] VLAD
--- NOTE | 2019-09-27 10:02 | PN ---
DATE OF SERVICE: 09/23/2019 SUBJECTIVE: The patient was seen and examined today. The patient's condition it stable. She is up and about. Cardiovascular status is stable. REVIEW OF SYSTEMS: CONSTITUTIONAL: No night sweats. No fatigue, malaise, lethargy. No fever or chills. HEENT: Eyes: No visual changes. No eye pain. No eye discharge. ENT: No runny nose. No epistaxis. No sinus pain. No sore throat. No odynophagia. No congestion. RESPIRATORY: No cough, no congestion. No hemoptysis. No shortness of breath. CARDIOVASCULAR: No angina symptoms. No CHF symptoms. No atypical chest pain for CAD. No palpitations. No PND. No orthopnea. GASTROINTESTINAL: No abdominal pain. No nausea or vomiting. No diarrhea or constipation. No hematemesis. No hematochezia. GENITOURINARY: No urgency. No frequency. No dysuria. No hematuria. No obstructive symptoms. No discharge. No pain. No significant abnormal bleeding. MUSCULOSKELETAL: No musculoskeletal pain; no joint swelling. Has to walk with the walker. Gait is still somewhat unsteady but the patient is a lot stronger. NEUROLOGICAL: No headache. No neck pain. No syncope. No seizures. No dizziness. PSYCHIATRIC: Not anxious. No depression. No suicidal thoughts. No homicidal thoughts. SKIN: No rash. No lesions. No wounds. ENDOCRINE: No unexplained weight loss. No weight gain. HEMATOLOGIC/LYMPHATIC: No anemia. No purpura. No petechiae. No prolonged or excessive bleeding. No palpable lymph nodes. PHYSICAL EXAMINATION: HEENT: Head normocephalic, atraumatic. Eyes: Extraocular muscles are intact. Pupils are equal, round and reactive to light and accommodation. Ears: No lesions. Nose appeared normal. Throat: No exudate or erythema. NECK: Supple. No JVD, no carotid bruit. No lymphadenopathy or thyromegaly. LUNGS: Decreased breath sounds but clear to auscultation. Percussion note normal. Chest symmetrical. HEART: S1, S2, no S3. No murmurs. No cyanosis or clubbing. No ascites. Pulses: Dorsalis pedis and posterior tibial pulses +1 to +2 bilaterally. ABDOMEN: Soft. Nontender. Bowel sounds active. No CVA tenderness. No mass felt. EXTREMITIES: No edema. Full range of motion of all extremities, equal. NEUROLOGIC: No focal deficit. Cranial nerves II through XII are grossly intact. No headache, no double vision or headache. Mental status better. SKIN: Not dry. Intact. Turgor - A lot btter. LYMPHATIC: No palpable lymph nodes/no lymphedema. MUSCULOSKELETAL: Normal joints with no swelling. Muscle tone is normal. ASSESSMENT: 1. Renal azotemia, resolved with creatinine of 1 and BUN 23. 2. Cardiovascular and CLINICAL MENTAL HEALTH COUNSELOR status stable. PLAN: 1. Discharge the patient home on Keflex because of UTI. The patient is asymptomatic as far as UTI is concerned 2. Strongly advised to eat and drink a lot fluids and eat regularly. The patient is neglecting to eat. She lives by herself with help of daughter. She lost her last year and every since that she is grieving. TIME SPENT: More than 30 minutes. Plan and coordination of the patient's care discussed in the presence of nurse. VLAD
--- NOTE | 2019-09-28 08:12 | DS ---
DATE OF SERVICE: 09/23/19 FINAL DIAGNOSIS: 1. RENAL AZOTEMIA 2. DEHYDRATION 3. URINARY TRACT INFECTION 4. DIABETES MELLITUS 5. HYPERTENSION 6. DYSLIPIDEMIA 7. DEPRESSION DISCHARGE INSTRUCTIONS: 1. Discharge home. 2. Will see the patient back in [address] Hayes's office. The patient is to call for an appointment. MEDICATIONS AT DISCHARGE: The patient will be discharged home on the same medications. The patient is to continue: Lexapro Amlodipine 5 mg p.o. bedtime Singulair 10 mg p.o. bedtime Protonix 40 mg p.o. bedtime Hydrocodone-Acetaminophen 10-325 mg tablet p.o. b.i.d. Escitalopram oxalate 20 mg p.o. bedtime Clopidogrel (Plavix) 75 mg p.o. bedtime Losartan-Hydrochlorothiazide (Hyzaar) 50-12.5 mg one tab p.o. daily Chlordiazepoxide-Clidinium 5-2.5 mg capsule one cap p.o. b.i.d. NEW PRESCRIPTIONS: Wellbutrin 150 mg p.o. daily (new medication) Keflex 500 mg t.i.d. for five days DIET INSTRUCTIONS: As patient tolerates. ACTIVITY: As the patient tolerates. SMOKING: N/A DISEASE SPECIFIC EDUCATION: Diagnoses Medications Nutrition Followup HOSPITAL COURSE: The patient was hospitalized with weakness, inability to walk, poor appetite. The patient has been grieving, depressed, neglecting to eat and drink fluids. Her creatinine and BUN are both elevated with clinically evidence of dehydration with poor skin turgor. The patient was given IV fluids. Her condition improved. Her kidney functions practically returned to normal. The patient was also put on Wellbutrin along with Lexapro. At time of discharge, the patient has been feeling a lot better. She is up and about getting the strength back. UTI was noted so she was put on Rocephin, later on switched to Keflex. CONDITION AT TIME OF DISCHARGE: Stable. TIME SPENT: More than 60 minutes. VLAD
--- NOTE | 2019-09-28 08:34 | PN ---
BILLING 09/20/19 ADMISSION DAY LEVEL 5 09/21/19 INTERMEDIATE 09/22/19 INTERMEDIATE 09/23/19 DISCHARGE MTDD
== END 2019-09-23 12:43 | disposition home or self-care (01) | DRG 194 ==
LOC: ED 11:53 → MEDSURG B 14:01
PROVIDERS: ADMIT Internal Medicine; ATTEND Internal Medicine
DX: I10 Essential (primary) hypertension; D64.9 Anemia, unspecified; Z51.81 Encounter for therapeutic drug level monitoring; F32.9 Major depressive disorder, single episode, unspecified; R53.1 Weakness; N18.3 Chronic kidney disease, stage 3 (moderate); E78.5 Hyperlipidemia, unspecified; N39.0 Urinary tract infection, site not specified; R53.83 Other fatigue; Z87.440 Personal history of urinary (tract) infections; E11.9 Type 2 diabetes mellitus without complications; E86.0 Dehydration; N17.9 Acute kidney failure, unspecified; F41.9 Anxiety disorder, unspecified; Z79.899 Other long term (current) drug therapy; J18.9 Pneumonia, unspecified organism